=== PATIENT | male | born 1940 | race Caucasian/White ===

== ENCOUNTER → 2016-06-30 | Outpatient (CLI) | payer MEDICARE ==
[~2016-06-30] MED LIST: ALLP300T PO; AML5T; ASP81TEC PO; ATOR40TA; ATOR40TA PO; BNZ20T PO; DILT120C PO; FURO20TA4 PO; HCT25T PO; HCTZ12.5T; ISOS30TA74 PO; LISI10TA2 PO; METO25TA PO; METO50TA2 PO; MTP50T PO; MULT1CAP27 PO; POTA10CA43 PO; iron
--- NOTE | 2016-07-02 09:40 | ECHOCARDIOGRAPHY REPORT ---
DATE OF SERVICE: 06/30/2016 A 2-D ECHOCARDIOGRAM REPORT REFERRING PHYSICIAN: Dr. Capo Quintana. PRIMARY PHYSICIAN: Dr. Alba Mercado. MEASUREMENT: LVID end diastolic 3.8, IVS thickness 0.9, LVPW thickness 1.0, left atrial diameter 3.5. Ejection fraction 60%. FINDINGS: 1. Technical quality is good. 2. The left ventricle is normal in size with normal contractility, systolic function appeared to be normal, estimated ejection fraction 60%. 3. The left atrium is in the upper normal limit in size. No clot or thrombus is seen within the left atrium. 4. The right atrium and right ventricle are normal in size. No clot or thrombus is seen within the right side. 5. Mitral valve is normal in morphology with mild mitral regurgitation noted by color Doppler flow. No mitral valve prolapse. No mitral valve stenosis. Doppler across the mitral valve showed E/A reversal, which is an expected finding at patient of age 76. 6. Aortic valve is trileaflet, calcified valve. There is no significant aortic stenosis or regurgitation seen. 7. Tricuspid valve is normal in morphology with mild tricuspid regurgitation noted by color Doppler flow. Doppler across the tricuspid valve estimated pulmonary artery pressure of 19+ right atrial pressure. 8. Pulmonic valve is functioning normally. 9. No pericardial effusion. CONCLUSION: 1. Normal left ventricular size and systolic function, estimated ejection fraction 60%. 2. Aortic valve sclerosis, no aortic stenosis. 3. Mild mitral regurgitation, mild tricuspid regurgitation. 4. Estimated pulmonary artery pressure of 25 mmHg. Job ID: [id number] DocumentID: [id number] Dictated Date: 07/01/2016 15:57:35 Ad Operations Associate Date: 07/02/2016 08:02:39 Dictated By: GISELE MERAZ MD
== END ==
LOC: CARD 13:36
PROVIDERS: ATTEND Internal Medicine Cardiovascular Disease
DX: R07.89 Other chest pain (principal); I25.10 Atherosclerotic heart disease of native coronary artery without angina pectoris; I10 Essential (primary) hypertension; E78.2 Mixed hyperlipidemia; Z95.2 Presence of prosthetic heart valve

== ENCOUNTER → 2016-07-01 | Outpatient (CLI) | payer MEDICARE ==
[~2016-07-01] VITALS: Ht 172.7 cm; Wt 108.9 kg
[~2016-07-01] MED LIST changes: +CATHETER FLUSH 10 ML SYR IV PRN; +REGADENOSON 0.4 MG/5 ML SYR (LEXISCAN) IV ONE
[2016-07-01 13:15] VITALS: BP 158/84
[2016-07-01 13:18] VITALS: BP 126/78
[2016-07-01 13:20] VITALS: BP 158/95
--- NOTE | 2016-07-02 08:39 | STRESS TEST ---
DATE OF SERVICE: 07/01/2016 LEXISCAN MYOVIEW STRESS TEST REPORT REFERRING PHYSICIAN: Alba Mercado MD Baseline heart rate is 77, baseline blood pressure 158/84. Baseline EKG is sinus rhythm with no ischemic changes. SUMMARY: The patient was injected with 10.53 mCi of technetium-99 Myoview and the resting images were obtained. Then, the patient received 0.4 mg of Lexiscan followed by 31.9 mCi of technetium 99 Myoview. Throughout the test, there were no EKG changes. The resting and stress images were reviewed and compared in the short axis, horizontal long axis, and vertical long axis views. Review of the images showed transient ischemic dilatation with TID value 1.22. There is no significant ischemia was noted. SSS is 1, SDS 1, TID value 1.22. On the gated images, the left ventricle appeared to be normal size with normal contractility. Calculated ejection fraction 58%. CONCLUSIONS: 1. The patient tolerated Lexiscan well. 2. Transient ischemic dilatation with TID value 1.22. 3. SPECT images did not show any significant ischemia. 4. Normal left ventricular size with normal contractility. Calculated ejection fraction 58%. Job ID: [id number] DocumentID: [id number] Dictated Date: 07/01/2016 15:33:30 Coremaker Experimental Date: 07/02/2016 06:31:59 Dictated By: GISELE MERAZ MD
== END ==
LOC: CARD 12:09
PROVIDERS: ATTEND Internal Medicine Cardiovascular Disease
DX: R07.89 Other chest pain (principal); I25.10 Atherosclerotic heart disease of native coronary artery without angina pectoris; I10 Essential (primary) hypertension; E78.2 Mixed hyperlipidemia; Z95.2 Presence of prosthetic heart valve
CPT/HCPCS: 78452; 93017

== ENCOUNTER → 2017-11-30 | Outpatient (CLI) | payer MEDICARE ==
[~2017-11-30] MED LIST changes: -CATHETER FLUSH 10 ML SYR IV PRN; -REGADENOSON 0.4 MG/5 ML SYR (LEXISCAN) IV ONE
== END ==
LOC: CARD 10:36
PROVIDERS: ATTEND Physician Assistant
DX: R07.89 Other chest pain (principal); I25.10 Atherosclerotic heart disease of native coronary artery without angina pectoris; I10 Essential (primary) hypertension; I34.0 Nonrheumatic mitral (valve) insufficiency; Z95.2 Presence of prosthetic heart valve
CPT/HCPCS: 93306

== ENCOUNTER → 2018-12-05 | Outpatient (CLI) | payer MEDICARE | LOC: CARD 08:58 | PROVIDERS: ATTEND Internal Medicine Cardiovascular Disease | DX: I08.0 Rheumatic disorders of both mitral and aortic valves (principal); Q25.3 Supravalvular aortic stenosis; I25.10 Atherosclerotic heart disease of native coronary artery without angina pectoris; I65.29 Occlusion and stenosis of unspecified carotid artery; I10 Essential (primary) hypertension | CPT/HCPCS: 93306 ==

== ENCOUNTER → 2019-06-28 | Outpatient (CLI) | payer MEDICARE ==
[~2019-06-28] VITALS: Ht 172 cm; Wt 99.0 kg
[~2019-06-28] MED LIST changes: +CATHETER FLUSH 10 ML SYR IV PRN; +REGADENOSON 0.4 MG/5 ML SYR (LEXISCAN) IV ONE
--- NOTE | 2019-06-28 16:06 | STRESS TEST ---
DATE OF SERVICE: 06/28/2019 LEXISCAN MYOVIEW STRESS TEST REPORT REFERRING PHYSICIAN: Dr. Alba Mercado. Baseline heart rate is 84, baseline blood pressure is 146/92. Baseline EKG is sinus rhythm with no ischemic changes. In summary, the patient was injected with 9.38 mCi of technetium-99 Myoview and the resting images were obtained. Then, the patient received 0.4 mg of Lexiscan followed by 31.5 mCi of technetium-99 Myoview. Throughout the test, there were no EKG changes. The resting and stress images were reviewed and compared in the short axis, horizontal long axis, and vertical long axis views. Review of the images showed good radiotracer uptake with no significant ischemia or infarction. SSS is 3, SDS 3, TID value 1.08. On the gated images, the left ventricle appeared to be normal size with normal contractility. Calculated ejection fraction 64%. Job ID: [id number] DocumentID: [id number] Dictated Date: 06/28/2019 15:59:13 Civil Structural Designer Date: 06/28/2019 16:05:47 Dictated By: GISELE MERAZ MD
== END ==
LOC: CARD 06-21 07:29
PROVIDERS: ATTEND Internal Medicine Cardiovascular Disease
DX: I25.10 Atherosclerotic heart disease of native coronary artery without angina pectoris (principal); I10 Essential (primary) hypertension; E78.2 Mixed hyperlipidemia
CPT/HCPCS: 78452; 93017

== ENCOUNTER 2019-11-20 16:55 | Inpatient (IN) | payer MEDICARE ==
[~2019-11-20] VITALS: Ht 172 cm; Wt 112.3 kg
[~2019-11-20 16:55] MED LIST changes: -CATHETER FLUSH 10 ML SYR IV PRN; -REGADENOSON 0.4 MG/5 ML SYR (LEXISCAN) IV ONE
[2019-11-20] MEDS ORDERED: ACETAMINOPHEN 325 MG TABLET PO PRN (18:00)
[2019-11-20] MEDS ORDERED: ANTACID SUSP 30 ML UDC (MYLANTA) PO PRN (18:00)
[2019-11-20] MEDS ORDERED: MELATONIN 3 MG TABLET PO PRN (18:00)
[2019-11-20] MEDS ORDERED: BENZONATATE 100 MG (TESSALON) CAPSULE PO PRN (18:00)
[2019-11-20] MEDS ORDERED: MILK OF MAGNESIA 400 MG/5 ML 30 ML UDC PO PRN (18:00)
[2019-11-20] MEDS ORDERED: ONDANSETRON 4 MG/2 ML (SDV) Z0FRAN IV PRN (18:00)
[2019-11-20] MEDS ORDERED: guaiFENesin SYRUP 100 MG/5 ML 10 ML (ROBITUSSIN SF) PO PRN (18:00)
[2019-11-20] MEDS ORDERED: dexAMETHasone 6 MG TAB (DECADRON) ONE (18:32)
[2019-11-20] MEDS ORDERED: WATER (STERILE) FOR INJECTION 10 ML ONE (18:32)
[2019-11-20] MEDS ORDERED: cefTRIAXone 1,000 MG IV (ROCEPHIN) VIAL ONE (18:32)
[2019-11-20 19:00] VITALS: BP 158/92
[2019-11-20 19:26] LABS: BASOPHILS % (AUTO) 0 % (0-10); EOSINOPHILS % (AUTO) 0 % (0-10); HEMATOCRIT 42 % (40-54); HEMOGLOBIN 14.3 g/dL (13.3-17.7); LYMPHOCYTES # (AUTO) 0.8 10^3/uL (1.0-4.0); LYMPHOCYTES % (AUTO) 6 % (12-44); MEAN CORPUSCULAR HEMOGLOBIN 31 pg (25-34); MEAN CORPUSCULAR HGB CONC 34 g/dL (32-36); MEAN CORPUSCULAR VOLUME 90 fL (80-99); MEAN PLATELET VOLUME 9.4 fL (9.0-12.2); MONOCYTES % (AUTO) 9 % (0-12); NEUTROPHILS # (AUTO) 10.1 10^3/uL (1.8-7.8); NEUTROPHILS % (AUTO) 84 % (42-75); PLATELET COUNT 197 10^3/uL (130-400)
[2019-11-20 19:52] LABS: ALBUMIN 3.3 GM/DL (3.2-4.5); BILIRUBIN,TOTAL 1.2 MG/DL (0.1-1.0); CALCIUM 9.2 MG/DL (8.5-10.1); CREATININE SERUM 1.69 MG/DL (0.60-1.30); POTASSIUM 3.9 MMOL/L (3.6-5.0); TOTAL PROTEIN 6.6 GM/DL (6.4-8.2)
[2019-11-20 20:00] VITALS: BP 159/86
[2019-11-20] MEDS ORDERED: FLU QUAD HIGH DOSE 240 MCG/0.7 ML 2020-21 (FLUZONE) IM ONE (20:00)
[2019-11-20 20:25] VITALS: BP 166/92
[2019-11-20] MEDS: AZITHROMYCIN INJECTION 500 MG in NS (IVPB) 250 ML IV SCH (20:28)
[2019-11-20] MEDS: cefTRIAXone FOR IV USE 1,000 MG in WATER (STERILE) FOR INJECTION 10 ML IV SCH (20:28)
[2019-11-20] MEDS: ENOXAPARIN 40 MG/0.4 ML (LOVENOX) SYR SC SCH (20:29)
[2019-11-20 20:53] LABS: ABG BASE EXCESS 6.2 MMOL/L (-2.5-2.5); ABG OXYGEN SATURATION 92 % (94-100); ABG PCO2 40 MMHG (35-45); ABG PH 7.48 (7.37-7.43); ABG PO2 64 MMHG (79-93); ABG TCO2 30.9 MMOL/L (21.0-31.0)
[2019-11-20 21:00] VITALS: BP 156/80
[2019-11-20 21:02] LABS: ALLENS TEST YES-POS; INSPIRED O2 80%; PATIENT TEMP 37.4; VENTILATOR NO
[2019-11-20] MEDS ORDERED: inSUlin ASPART (NovoLOG) 1 UNIT/0.01 ML (CHARGE PER UNIT) ONE (21:41)
[2019-11-20] MEDS: inSUlin ASPART (NovoLOG) 1 UNIT/0.01 ML (CHARGE PER UNIT) SC SCH (21:46)
[2019-11-20 22:00] VITALS: BP 151/97
[2019-11-20 23:00] VITALS: BP 160/88
[2019-11-20 23:57] LABS: BILIRUBIN,URINE NEGATIVE (NEGATIVE); CLARITY,URINE CLEAR; COLOR,URINE YELLOW; GLUCOSE, URINE (UA) 1+ (NEGATIVE); KETONES,URINE NEGATIVE (NEGATIVE); LEUKOCYTE ESTERASE ,URINE NEGATIVE (NEGATIVE); NITRITE,URINE NEGATIVE (NEGATIVE); PROTEIN,URINE NEGATIVE (NEGATIVE)
[2019-11-21] VITALS (28 sets, daily range): BP systolic 124–177; BP diastolic 77–100
[2019-11-21 00:07] LABS: BACTERIA,URINE NEGATIVE /HPF; SQUAMOUS EPITHELIAL CELL,UR RARE /HPF
[2019-11-21 03:05] LABS: BASOPHILS % (AUTO) 0 % (0-10); EOSINOPHILS % (AUTO) 0 % (0-10); HEMATOCRIT 41 % (40-54); HEMOGLOBIN 14.1 g/dL (13.3-17.7); LYMPHOCYTES % (AUTO) 8 % (12-44); MEAN CORPUSCULAR HEMOGLOBIN 31 pg (25-34); MEAN CORPUSCULAR HGB CONC 34 g/dL (32-36); MEAN CORPUSCULAR VOLUME 89 fL (80-99); MEAN PLATELET VOLUME 9.4 fL (9.0-12.2); MONOCYTES # (AUTO) 1.2 10^3/uL (0.0-1.0); MONOCYTES % (AUTO) 10 % (0-12); NEUTROPHILS # (AUTO) 10.1 10^3/uL (1.8-7.8); NEUTROPHILS % (AUTO) 82 % (42-75); PLATELET COUNT 196 10^3/uL (130-400); WHITE BLOOD COUNT 12.4 10^3/uL (4.3-11.0)
[2019-11-21 03:17] LABS: ALBUMIN 3.1 GM/DL (3.2-4.5); POTASSIUM 3.6 MMOL/L (3.6-5.0)
[2019-11-21 03:18] LABS: CALCIUM 8.9 MG/DL (8.5-10.1)
[2019-11-21 03:19] LABS: TOTAL PROTEIN 6.3 GM/DL (6.4-8.2)
[2019-11-21 03:21] LABS: BILIRUBIN,TOTAL 0.8 MG/DL (0.1-1.0)
[2019-11-21 03:22] LABS: PHOSPHORUS 2.8 MG/DL (2.3-4.7)
[2019-11-21 03:23] LABS: CREATININE SERUM 1.56 MG/DL (0.60-1.30)
[2019-11-21 03:25] LABS: MAGNESIUM 1.8 MG/DL (1.6-2.4)
[2019-11-21] MEDS ORDERED: LACTATED RINGERS 1,000 ML IV ONE (05:39)
--- NOTE | 2019-11-21 05:40 | Pulmonary Consultation ---
History of Present Illness History of Present Illness Date Seen by Provider: Nov 21, 2019 Time Seen by Provider: 05:35 Date of Admission Allergies and Home Medications Allergies Coded Allergies: metformin (Verified Allergy, Unknown, 11/20/19) DIARRHEA Home Medications Allopurinol 300 Mg Tab, 300 MG PO DAILY, (Reported) Aspirin 81 Mg Tabec, 81 MG PO DAILY, (Reported) Atorvastatin Calcium 40 Mg Tablet, 1 EACH PO DAILY, (Reported) Diltiazem Hcl 120 Mg Cap.sr.24h, 120 MG PO DAILY, (Reported) Furosemide 20 Mg Tablet, 1 EACH PO DAILY, (Reported) Hydrochlorothiazide 25 Mg Tab, 25 MG PO DAILY, (Reported) Isosorbide Mononitrate 30 Mg Tab.sr.24h, 30 MG PO DAILY Prescribed by: GISELE MERAZ on 12/28/13 0824 Lisinopril 10 Mg Tablet, 20 MG PO DAILY, (Reported) Metoprolol Tartrate 50 Mg Tablet, 50 MG PO BID, (Reported) Multivitamins 1 Each Capsule, 1 EACH PO DAILY, (Reported) Potassium Chloride 10 Meq Capsule.sa, 10 MEQ PO DAILY, (Reported) [iron] , DAILY, (Reported) Past Xdhqsey-Oxfwno-Hyijtn Hx Patient Social History Alcohol Use: Denies Use Recreational Drug Use: No Recent Foreign Travel: No Contact w/Someone Who Travel: No Recent Infectious Disease Expo: No Recent Hopitalizations: Yes Past Medical History Surgeries: Yes Appendectomy, CABG Respiratory: No Cardiac: Yes Heart Attack, High Cholesterol, Hypertension Neurological: No Reproductive Disorders: No Gastrointestinal: Yes Abdominal Hernia Musculoskeletal: Yes Gout Endocrine: No Cancer: No Psychosocial: No Integumentary: No Blood Disorders: No Sepsis Event Evaluation Height, Weight, BMI Height: 5'8.00" Weight: 240lbs. 0.0oz. 108.926559mv; 31.19 BMI Method: Exam Exam Vital Signs Date Time Temp Pulse Resp B/P (MAP) Pulse Ox O2 Delivery O2 Flow Rate FiO2 11/21/19 04:00 96 30 158/91 (113) 91 Vapotherm 40.00 90.00 11/21/19 03:52 91 Vapotherm 40.00 90 11/21/19 03:41 37.3 Vapotherm 40.00 90.00 11/21/19 03:00 98 34 167/92 (117) 89 Vapotherm 35.00 80.00 10/6/20 02:45 93 Vapotherm 35.00 80 11/21/19 02:00 92 33 173/98 (123) 91 Vapotherm 35.00 80.00 11/21/19 01:00 97 152/81 (104) 91 Vapotherm 35.00 80.00 11/21/19 01:00 97 11/21/19 00:00 99 27 158/90 (112) 91 Vapotherm 35.00 80.00 11/21/19 00:00 92 Vapotherm 35.00 80 11/20/19 23:42 37.1 Vapotherm 35.00 80.00 11/20/19 23:00 101 160/88 (112) 90 Vapotherm 25.00 80.00 11/20/19 22:00 105 151/97 (115) 88 Vapotherm 25.00 80.00 11/20/19 21:00 106 156/80 (105) 89 Vapotherm 25.00 80.00 11/20/19 20:25 37.4 97 20 166/92 (116) 92 Vapotherm 25.00 80.00 11/20/19 20:00 91 159/86 (110) 92 Vapotherm 25.00 80.00 11/20/19 20:00 90 Vapotherm 25.00 80 11/20/19 19:11 Vapotherm 40.00 80 11/20/19 19:06 92 Vapotherm 25.00 80 11/20/19 19:00 94 11/20/19 19:00 94 17 158/92 (114) 89 Vapotherm 25.00 80.00 11/20/19 18:28 103 I & O 11/21/19 07:00 Intake Total 500 ml Output Total 675 ml Balance -175 ml Height & Weight Height: 5'8.00" Weight: 240lbs. 0.0oz. 108.295071md; 31.19 BMI Method: Capillary Refill: Less Than 3 Seconds Results Lab Laboratory Tests 11/20/19 19:22 11/21/19 02:53 Assessment/Plan Assessment/Plan COVID 19 PNA with acute respiratory failure -Remdesivir and Convalescent plasma -Pt understands these are EUA medications and consents to use. -Decadron -- increase to 20mg daily -BiPAP PRN -Awake proning as tolerated PNA -PCT is elevated -Continue rocephin and azithromycin -Guerrero cultures ARF -Monitor - DVT/GI PPX -Lovenox -Protonix TAVON ORTIZ DO Nov 21, 2019 05:40
[2019-11-21] MEDS ORDERED: MAGNESIUM 1 GM/100 ML IVPB 100 ML IV ONE ×2 (05:41→05:45)
[2019-11-21] MEDS: inSUlin ASPART (NovoLOG) 1 UNIT/0.01 ML (CHARGE PER UNIT) SC SCH ×4 (05:56→23:27)
[2019-11-21] MEDS: LACTATED RINGERS 1,000 ML IV SCH (05:56)
[2019-11-21] MEDS ORDERED: POTASSIUM PHOSPHATE INJ 15 MM in NS (IVPB) 250 ML IV ONE (06:30)
--- NOTE | 2019-11-21 07:55 | Diagnostic Imaging Report ---
INDICATION: Dyspnea. TECHNIQUE: Single view chest 3:11 AM. CORRELATION STUDY: 12/27/2013 FINDINGS: Poststernotomy changes. Cardiac enlargement slightly increased. Does appear to be presence of increasing vascular congestion. Opacities in particularly perihilar and basilar regions of both lung banerjee left greater than right have adversely developed. IMPRESSION: 1. Cardiac enlargement with what appears to be pulmonary vascular congestion. Bilateral particularly perihilar and basilar opacities left greater than right may be reflective of asymmetric edema versus infiltrate. Followup imaging recommended. Dictated by: Dictated on workstation # [id number]
[2019-11-21] MEDS ORDERED: dexAMETHasone 6 MG TAB (DECADRON) PO SCH (09:00)
[2019-11-21] MEDS ORDERED: REMDESIVIR INJ 200 MG in NS (IVPB) 210 ML IV NR (09:54)
[2019-11-21] MEDS: PANTOPRAZOLE 40 MG (PROTONIX) VIAL IV SCH (09:56)
[2019-11-21] MEDS: dexAMETHasone INJECTION 20 MG in NS (IVPB) 50 ML IV SCH (09:56)
[2019-11-21] MEDS ORDERED: LIDOCAINE UROJET 2% GEL 10 ML PKG ONE (10:53)
--- NOTE | 2019-11-21 11:20 | NUR ---
1110 pt placed on bipap at this time.
[2019-11-21] MEDS: cefTRIAXone FOR IV USE 1,000 MG in WATER (STERILE) FOR INJECTION 10 ML IV SCH (17:51)
[2019-11-21] MEDS: ENOXAPARIN 40 MG/0.4 ML (LOVENOX) SYR SC SCH (20:16)
[2019-11-21] MEDS: AZITHROMYCIN INJECTION 500 MG in NS (IVPB) 250 ML IV SCH (20:16)
[2019-11-22] VITALS (30 sets, daily range): BP systolic 122–161; BP diastolic 63–94
[2019-11-22 04:00] LABS: BASOPHILS % (AUTO) 0 % (0-10); EOSINOPHILS % (AUTO) 0 % (0-10); HEMATOCRIT 43 % (40-54); HEMOGLOBIN 14.5 g/dL (13.3-17.7); LYMPHOCYTES # (AUTO) 0.8 10^3/uL (1.0-4.0); LYMPHOCYTES % (AUTO) 7 % (12-44); MEAN CORPUSCULAR HEMOGLOBIN 31 pg (25-34); MEAN CORPUSCULAR HGB CONC 34 g/dL (32-36); MEAN CORPUSCULAR VOLUME 90 fL (80-99); MEAN PLATELET VOLUME 9.7 fL (9.0-12.2); MONOCYTES # (AUTO) 0.8 10^3/uL (0.0-1.0); MONOCYTES % (AUTO) 6 % (0-12); NEUTROPHILS % (AUTO) 86 % (42-75); PLATELET COUNT 228 10^3/uL (130-400); WHITE BLOOD COUNT 12.7 10^3/uL (4.3-11.0)
[2019-11-22 04:07] LABS: POTASSIUM 3.9 MMOL/L (3.6-5.0)
[2019-11-22 04:08] LABS: CALCIUM 8.7 MG/DL (8.5-10.1)
[2019-11-22 04:09] LABS: TOTAL PROTEIN 6.1 GM/DL (6.4-8.2)
[2019-11-22 04:11] LABS: BILIRUBIN,TOTAL 0.5 MG/DL (0.1-1.0)
[2019-11-22 04:12] LABS: PHOSPHORUS 2.7 MG/DL (2.3-4.7)
[2019-11-22 04:13] LABS: CREATININE SERUM 1.58 MG/DL (0.60-1.30)
[2019-11-22 04:16] LABS: MAGNESIUM 2.1 MG/DL (1.6-2.4)
--- NOTE | 2019-11-22 05:04 | Pulmonary Progress Note ---
Subjective Time Seen by a Provider: 04:59 Sepsis Event Evaluation Height, Weight, BMI Height: 5'8.00" Weight: 240lbs. 0.0oz. 108.867734bt; 31.19 BMI Method: Focused Exam Lactate Level 11/20/19 19:22: Lactic Acid Level 1.90 Exam Exam Vital Signs Date Time Temp Pulse Resp B/P (MAP) Pulse Ox O2 Delivery O2 Flow Rate FiO2 11/22/19 04:10 36.1 11/22/19 04:09 92 NIV Bilevel 80 11/22/19 04:00 64 34 156/86 (109) 99 NIV Bilevel 80.00 11/22/19 03:00 68 29 138/78 (98) 99 NIV Bilevel 80.00 11/22/19 02:00 70 28 138/77 (97) 99 NIV Bilevel 80.00 11/22/19 01:52 69 28 98 55.00 11/22/19 01:00 61 29 149/82 (104) NIV Bilevel 80.00 11/22/19 01:00 61 11/22/19 00:05 92 NIV Bilevel 80 11/22/19 00:00 71 134/75 (94) 94 NIV Bilevel 80.00 11/21/19 23:25 36.4 NIV Bilevel 80.00 11/21/19 23:00 85 129/77 (94) 93 NIV Bilevel 70.00 11/21/19 22:00 79 161/85 (110) 89 NIV Bilevel 70.00 11/21/19 21:47 80 28 90 55.00 11/21/19 21:00 67 133/79 (97) 97 NIV Bilevel 70.00 11/21/19 20:30 78 145/77 (99) 96 NIV Bilevel 70.00 11/21/19 20:25 NIV Bilevel 70.00 11/21/19 20:00 150/86 (107) 11/21/19 20:00 95 NIV Bilevel 70 11/21/19 20:00 86 150/86 (107) 86 Vapotherm 40.00 100.00 11/21/19 20:00 36.8 11/21/19 19:00 89 159/86 (110) 89 Vapotherm 40.00 100.00 11/21/19 19:00 89 11/21/19 18:00 82 174/93 (120) NIV Bilevel 75.00 11/21/19 17:00 76 29 152/86 (108) 93 NIV Bilevel 75.00 11/21/19 16:00 75 22 161/92 (115) 92 NIV Bilevel 75.00 11/21/19 16:00 96 NIV Bilevel 75 11/21/19 15:00 89 34 130/77 (94) 87 NIV Bilevel 75.00 11/21/19 14:33 79 37 95 55.00 11/21/19 14:00 84 177/96 (123) 91 NIV Bilevel 75.00 11/21/19 13:00 82 23 163/96 (118) 96 NIV Bilevel 75.00 11/21/19 12:40 81 11/21/19 12:00 36.8 11/21/19 12:00 96 NIV Bilevel 75 11/21/19 12:00 82 23 163/96 (118) 96 NIV Bilevel 75.00 11/21/19 11:11 78 30 96 75.00 11/21/19 11:00 NIV Bilevel 75.00 11/21/19 11:00 75 29 164/90 (114) 95 Vapotherm 40.00 90.00 11/21/19 10:00 89 36 165/97 (119) 90 Vapotherm 40.00 90.00 11/21/19 09:00 82 29 154/94 (114) 93 Vapotherm 40.00 90.00 11/21/19 08:00 84 16 170/96 (120) 93 Vapotherm 40.00 90.00 11/21/19 08:00 91 Vapotherm 40.00 90 11/21/19 07:12 90 Vapotherm 40.00 95 11/21/19 07:00 36.1 11/21/19 07:00 89 32 154/90 (111) 88 Vapotherm 40.00 90.00 11/21/19 06:46 80 11/21/19 06:00 79 173/100 (124) 92 Vapotherm 40.00 90.00 11/21/19 05:00 86 154/90 (111) 94 Vapotherm 40.00 90.00 I & O 11/22/19 07:00 Intake Total 600 ml Output Total 850 ml Balance -250 ml Height & Weight Height: 5'8.00" Weight: 240lbs. 0.0oz. 108.524968hy; 31.19 BMI Method: Capillary Refill: Less Than 3 Seconds Results Lab Laboratory Tests 11/20/19 19:22 11/21/19 02:53 11/22/19 02:57 Assessment/Plan Assessment/Plan COVID 19 PNA with acute respiratory failure -Currently on BiPAP at 80% -Will trial to Vapotherm. Will most likely need intubation. -Remdesivir and Convalescent plasma (pending however has been ordered) -Pt understands these are EUA medications and consents to use. -Pt wants to be a full code. -Decadron 20mg daily -LR is currently at 30cc/hr -Awake proning - not tolerating -Repeat Ferritin, PCT, and Ddimer -Repeat ABG PNA -PCT is elevated -Continue rocephin and azithromycin -Guerrero cultures ARF -Monitor - IVF currently LR at 30cc/hr DVT/GI PPX -Lovenox -Protonix TAVON ORTIZ DO Nov 22, 2019 05:04
[2019-11-22] MEDS: LACTATED RINGERS 1,000 ML IV SCH (05:40)
[2019-11-22] MEDS: inSUlin ASPART (NovoLOG) 1 UNIT/0.01 ML (CHARGE PER UNIT) SC SCH ×4 (05:41→23:06)
[2019-11-22] MEDS: REMDESIVIR INJ 100 MG in NS (IVPB) 230 ML IV SCH (08:20)
[2019-11-22] MEDS: PANTOPRAZOLE 40 MG (PROTONIX) VIAL IV SCH (08:20)
[2019-11-22] MEDS: dexAMETHasone INJECTION 20 MG in NS (IVPB) 50 ML IV SCH (08:20)
--- NOTE | 2019-11-22 10:20 | Progress Note - Hospitalist ---
Subjective HPI/CC On Admission Date Seen by Provider: Nov 22, 2019 Time Seen by Provider: 10:13 Subjective/Events-last exam Pt reports breathing better today. Still on BiPAP. Going to attempt to switch to Vapotherm today. Focused Exam Lactate Level 11/20/19 19:22: Lactic Acid Level 1.90 Objective Exam Vital Signs Vital Signs Date Time Temp Pulse Resp B/P (MAP) Pulse Ox O2 Delivery O2 Flow Rate FiO2 11/22/19 08:32 36.0 11/22/19 08:15 92 NIV Bilevel 80 11/22/19 06:47 86 32 80.00 11/22/19 06:00 137/75 (95) Capillary Refill : Less Than 3 Seconds General Appearance: Other (on BiPAP, ill appearing but jovial) Respiratory: Decreased Breath Sounds; No Wheezing; Other (on BiPAP) Cardiovascular: Regular Rate, Rhythm, No JVD, No Murmur Gastrointestinal: Normal Bowel Sounds, Non Tender, Soft Extremity: No Calf Tenderness, No Pedal Edema Neurologic/Psychiatric: Alert, Oriented x3, Normal Mood/Affect Results/Procedures Lab Laboratory Tests 11/22/19 02:57 Patient resulted labs reviewed. Assessment/Plan Assessment and Plan Assess & Plan/Chief Complaint COVID 19 PNA with acute hypoxic respiratory failure -Currently on BiPAP, trial Vapotherm today - High risk for intubation given high oxygen requirement, patient ok with intubation if needed -Remdesivir day 2 and Convalescent plasma pending arrival -Pt understands these are EUA medications and consents to use per Dr Villarreal -Decadron 20mg daily -Awake proning - as able to tolerate but has not done well with it yet - Continue Rocephin and Azithromycin due to elevated procal -Repeat Ferritin pending -Guerrero cultures pending for OSH Urine legionella and strep pna negative ARF -Creatinine stable with adequate UOP yesterday - IVF currently LR at 30cc/hr Hyperglycemia Does not appear to have a history of DM Likely steroid induced SSI DVT/GI PPX -Lovenox -Protonix Diagnosis/Problems Diagnosis/Problems (1) COVID-19 Status: Acute (2) Acute respiratory failure with hypoxia Status: Acute (3) HTN (hypertension) Status: Chronic Qualifiers: Hypertension type: essential hypertension Qualified Codes: I10 - Essential (primary) hypertension (4) Hyperglycemia Status: Acute (5) Pneumonia Status: Acute Qualifiers: Pneumonia type: due to unspecified organism Laterality: left Lung location: lower lobe of lung Qualified Codes: J18.9 - Pneumonia, unspecified organism Clinical Quality Measures DVT/VTE Risk/Contraindication: Risk Factor Score Per Nursin RFS Level Per Nursing on Admit: 3=High LUIS ALBERTO ANDINO MD Nov 22, 2019 10:20
[2019-11-22] MEDS ORDERED: NS IV 500 ML 500 ML ONE (14:06)
[2019-11-22] MEDS ORDERED: GLIM4TAB5 PO (14:11)
[2019-11-22] MEDS ORDERED: MULT-1136 PO (14:11)
[2019-11-22] MEDS ORDERED: ALLO300T2 PO (14:11)
[2019-11-22] MEDS ORDERED: MULT-142 PO (14:11)
[2019-11-22] MEDS ORDERED: METO100T12 PO (14:11)
[2019-11-22] MEDS ORDERED: OMEG-105 PO (14:11)
[2019-11-22] MEDS ORDERED: ISOS30TA3 PO (14:11)
[2019-11-22] MEDS ORDERED: LISI40TA PO (14:11)
[2019-11-22] MEDS ORDERED: ASPI-1238 PO (14:11)
[2019-11-22] MEDS ORDERED: HYDR25TA4 PO (14:11)
[2019-11-22] MEDS ORDERED: ATOR40TA70 PO (14:11)
[2019-11-22] MEDS ORDERED: LIRA0.6P SQ (14:11)
[2019-11-22] MEDS ORDERED: POTA10TA PO (14:11)
[2019-11-22] MEDS ORDERED: FURO20TA4 PO (14:11)
--- NOTE | 2019-11-22 14:13 | NUR ---
UNABLE TO SPEAK WITH THE PT AT THIS TIME HOWEVER I WAS ABLE TO GET IN TOUCH WITH THE PTS DAUGHTER ZENON. I SPOKE WITH ZENON AND WENT THRU THE EXT MED HISTORY TO COMPLETE THE MED REC ZENON HAD ALL THE PTS MED BOTTLE WITH HER AND SHE WENT THRU EACH MED AND WAS ABLE TO TELL ME THE NAME WELL WHEN/HOW THE PT TAKES THEM METOPROLOL TART 50MG HAS A FILL DATE OF 11-20-2019 #14/7DS ON THE EXT MED HISTORY, HOWEVER IT DOESNT LOOK THIS WAS AN ACTUAL FILL AND WHEN I SPOKE WITH ZENON SHE SAID THE ONLY BOTTLE SHE HAS IS THE 100MG OTC MEDS: ASPIRIN 81 [employer]
[2019-11-22] MEDS: NS IV 500 ML 500 ML IV SCH (14:50)
[2019-11-22] MEDS: cefTRIAXone FOR IV USE 1,000 MG in WATER (STERILE) FOR INJECTION 10 ML IV SCH (17:15)
--- NOTE | 2019-11-22 17:24 | NUR ---
DR ANDINO ON FLOOR EARLIER AND NOTIFIED OF PT'S ELEVATED BLOOD SUGARS. NEW ORDERS RECEIVED TO GIVE LEVEMIR 10 UNITS SQ AT HS. ORDERS REPEATED BACK AND ENTERED.
[2019-11-22] MEDS: ENOXAPARIN 40 MG/0.4 ML (LOVENOX) SYR SC SCH (20:46)
[2019-11-22] MEDS: AZITHROMYCIN INJECTION 500 MG in NS (IVPB) 250 ML IV SCH (20:46)
[2019-11-23] VITALS (29 sets, daily range): BP systolic 113–183; BP diastolic 62–103
[2019-11-23] MEDS: NS IV 500 ML 500 ML IV SCH ×2 (04:31→23:05)
[2019-11-23 04:42] LABS: BASOPHILS % (AUTO) 0 % (0-10); EOSINOPHILS % (AUTO) 0 % (0-10); HEMATOCRIT 43 % (40-54); HEMOGLOBIN 14.7 g/dL (13.3-17.7); LYMPHOCYTES # (AUTO) 0.7 10^3/uL (1.0-4.0); LYMPHOCYTES % (AUTO) 5 % (12-44); MEAN CORPUSCULAR HEMOGLOBIN 30 pg (25-34); MEAN CORPUSCULAR HGB CONC 34 g/dL (32-36); MEAN CORPUSCULAR VOLUME 90 fL (80-99); MEAN PLATELET VOLUME 9.6 fL (9.0-12.2); MONOCYTES # (AUTO) 0.9 10^3/uL (0.0-1.0); MONOCYTES % (AUTO) 6 % (0-12); NEUTROPHILS # (AUTO) 14.8 10^3/uL (1.8-7.8); NEUTROPHILS % (AUTO) 89 % (42-75); PLATELET COUNT 272 10^3/uL (130-400); WHITE BLOOD COUNT 16.6 10^3/uL (4.3-11.0)
[2019-11-23 04:59] LABS: ALBUMIN 2.9 GM/DL (3.2-4.5); POTASSIUM 3.8 MMOL/L (3.6-5.0)
[2019-11-23 05:00] LABS: CALCIUM 8.5 MG/DL (8.5-10.1)
[2019-11-23 05:01] LABS: TOTAL PROTEIN 5.8 GM/DL (6.4-8.2)
[2019-11-23 05:03] LABS: BILIRUBIN,TOTAL 0.5 MG/DL (0.1-1.0)
[2019-11-23 05:05] LABS: CREATININE SERUM 1.49 MG/DL (0.60-1.30); PHOSPHORUS 3.1 MG/DL (2.3-4.7)
[2019-11-23 05:08] LABS: MAGNESIUM 2.2 MG/DL (1.6-2.4)
[2019-11-23 05:41] LABS: BAND NEUTROPHILS 1 %; LYMPHOCYTES % (MANUAL) 5 %; MONOCYTES % (MANUAL) 4 %; NEUTROPHILS % (MANUAL) 90 %; RBC MORPH NORMAL
[2019-11-23] MEDS: LACTATED RINGERS 1,000 ML IV SCH (06:21)
[2019-11-23] MEDS: inSUlin ASPART (NovoLOG) 1 UNIT/0.01 ML (CHARGE PER UNIT) SC SCH ×4 (06:21→23:09)
[2019-11-23] MEDS: dexAMETHasone INJECTION 20 MG in NS (IVPB) 50 ML IV SCH (08:32)
[2019-11-23] MEDS: PANTOPRAZOLE 40 MG (PROTONIX) VIAL IV SCH (08:34)
[2019-11-23] MEDS: REMDESIVIR INJ 100 MG in NS (IVPB) 230 ML IV SCH (08:38)
--- NOTE | 2019-11-23 09:19 | Progress Note - Hospitalist ---
Subjective HPI/CC On Admission Date Seen by Provider: Nov 23, 2019 Time Seen by Provider: 09:11 Subjective/Events-last exam Pt reports feeling about the same. Lying on his side. Not able to prone well. Still on BiPAP. Discussed repeating plasma and patient states "do anything that will help me." Focused Exam Lactate Level 11/20/19 19:22: Lactic Acid Level 1.90 Objective Exam Vital Signs Vital Signs Date Time Temp Pulse Resp B/P (MAP) Pulse Ox O2 Delivery O2 Flow Rate FiO2 11/23/19 08:31 35.8 11/23/19 08:00 68 137/70 (92) 93 NIV Bilevel 80.00 11/23/19 07:21 28 11/23/19 04:25 80 Capillary Refill : Less Than 3 Seconds General Appearance: Chronically ill, Mild Distress Respiratory: No Accessory Muscle Use, Rhonci, Other (on BiPAP) Cardiovascular: Regular Rate, Rhythm, No Murmur Gastrointestinal: Normal Bowel Sounds, Non Tender, Soft Neurologic/Psychiatric: Alert, Oriented x3 Results/Procedures Lab Laboratory Tests 11/23/19 04:00 Patient resulted labs reviewed. Assessment/Plan Assessment and Plan Assess & Plan/Chief Complaint COVID 19 PNA with acute hypoxic respiratory failure - Currently on BiPAP, did not do well with Vapotherm yesterday - High risk for intubation given high oxygen requirement, patient ok with intubation if needed - Remdesivir day 3 and Convalescent plasma given yesterday - Pt understands these are EUA medications and consents to use per Dr Villarreal - Will repeat plasma today - Decadron 20mg daily - Awake proning - as able to tolerate but has not done well with it yet - Continue Rocephin and Azithromycin due to elevated procal - Repeat Ferritin pending - Guerrero cultures pending for OSH - Urine legionella and strep pna negative ARF - Creatinine stable with adequate UOP yesterday Hyperglycemia - Does not appear to have a history of DM - Likely steroid induced - SSI - Levemir added last night DVT/GI PPX - Lovenox - Protonix Diagnosis/Problems Diagnosis/Problems (1) COVID-19 Status: Acute (2) Acute respiratory failure with hypoxia Status: Acute (3) HTN (hypertension) Status: Chronic Qualifiers: Hypertension type: essential hypertension Qualified Codes: I10 - Essential (primary) hypertension (4) Hyperglycemia Status: Acute (5) Pneumonia Status: Acute Qualifiers: Pneumonia type: due to unspecified organism Laterality: left Lung location: lower lobe of lung Qualified Codes: J18.9 - Pneumonia, unspecified organism Clinical Quality Measures DVT/VTE Risk/Contraindication: Risk Factor Score Per Nursin RFS Level Per Nursing on Admit: 3=High LUIS ALBERTO ANDINO MD Nov 23, 2019 09:19
--- NOTE | 2019-11-23 14:29 | NUR ---
Note pt is currently NPO x2d, per chart review. If pt is to be NPO for more than 3days, pt may benefit from enteral nutrition to reduce risk of malnutrition. Will continue to follow and reassess as pt needs, intake, and status changes. Chloé Cleary, MS RD LD [phone]
[2019-11-23] MEDS: cefTRIAXone FOR IV USE 1,000 MG in WATER (STERILE) FOR INJECTION 10 ML IV SCH (16:59)
[2019-11-23] MEDS: AZITHROMYCIN INJECTION 500 MG in NS (IVPB) 250 ML IV SCH (21:45)
[2019-11-23] MEDS: ENOXAPARIN 40 MG/0.4 ML (LOVENOX) SYR SC SCH (21:45)
[2019-11-23] MEDS: RT-ALBUTEROL INHALER HFA (VENTOLIN HFA) 18 GM IH SCH (22:22)
[2019-11-24] VITALS (28 sets, daily range): BP systolic 118–182; BP diastolic 49–103
[2019-11-24] MEDS: RT-ALBUTEROL INHALER HFA (VENTOLIN HFA) 18 GM IH SCH ×4 (01:37→23:56)
[2019-11-24 03:20] LABS: BASOPHILS % (AUTO) 0 % (0-10); EOSINOPHILS % (AUTO) 0 % (0-10); HEMATOCRIT 45 % (40-54); HEMOGLOBIN 15.2 g/dL (13.3-17.7); LYMPHOCYTES # (AUTO) 0.9 10^3/uL (1.0-4.0); LYMPHOCYTES % (AUTO) 5 % (12-44); MEAN CORPUSCULAR HEMOGLOBIN 31 pg (25-34); MEAN CORPUSCULAR HGB CONC 34 g/dL (32-36); MEAN CORPUSCULAR VOLUME 90 fL (80-99); MEAN PLATELET VOLUME 9.6 fL (9.0-12.2); MONOCYTES # (AUTO) 1.5 10^3/uL (0.0-1.0); MONOCYTES % (AUTO) 8 % (0-12); NEUTROPHILS # (AUTO) 15.5 10^3/uL (1.8-7.8); NEUTROPHILS % (AUTO) 86 % (42-75); PLATELET COUNT 292 10^3/uL (130-400); WHITE BLOOD COUNT 18.1 10^3/uL (4.3-11.0)
[2019-11-24 03:28] LABS: ALBUMIN 2.9 GM/DL (3.2-4.5); POTASSIUM 3.5 MMOL/L (3.6-5.0)
[2019-11-24 03:30] LABS: CALCIUM 8.4 MG/DL (8.5-10.1)
[2019-11-24 03:31] LABS: TOTAL PROTEIN 5.9 GM/DL (6.4-8.2)
[2019-11-24 03:32] LABS: BILIRUBIN,TOTAL 0.6 MG/DL (0.1-1.0)
[2019-11-24 03:34] LABS: PHOSPHORUS 3.5 MG/DL (2.3-4.7)
[2019-11-24 03:35] LABS: CREATININE SERUM 1.5 MG/DL (0.60-1.30)
[2019-11-24 03:37] LABS: MAGNESIUM 2.4 MG/DL (1.6-2.4)
[2019-11-24] MEDS: inSUlin ASPART (NovoLOG) 1 UNIT/0.01 ML (CHARGE PER UNIT) SC SCH ×4 (05:01→23:38)
[2019-11-24] MEDS: dexAMETHasone INJECTION 20 MG in NS (IVPB) 50 ML IV SCH (08:25)
[2019-11-24] MEDS: PANTOPRAZOLE 40 MG (PROTONIX) VIAL IV SCH (08:25)
[2019-11-24] MEDS: REMDESIVIR INJ 100 MG in NS (IVPB) 230 ML IV SCH (08:57)
--- NOTE | 2019-11-24 10:33 | Progress Note - Hospitalist ---
Subjective HPI/CC On Admission Date Seen by Provider: Nov 24, 2019 Time Seen by Provider: 10:27 Subjective/Events-last exam Pt reports feeling very short of breath, otherwise ok. On BiPAP and thirsty. Discussed with him potential need for intubation still if not improving. Objective Exam Vital Signs Vital Signs Date Time Temp Pulse Resp B/P (MAP) Pulse Ox O2 Delivery O2 Flow Rate FiO2 11/24/19 10:00 68 175/95 (121) 95 NIV Bilevel 70.00 11/24/19 08:32 35.9 11/24/19 08:00 70 11/24/19 07:56 24 Capillary Refill : Less Than 3 Seconds General Appearance: Anxious, Mild Distress Respiratory: Decreased Breath Sounds, Rhonci, Other (on BiPAP) Cardiovascular: Regular Rate, Rhythm, No Murmur Gastrointestinal: Normal Bowel Sounds, Non Tender, Soft Neurologic/Psychiatric: Alert, Oriented x3 Results/Procedures Lab Laboratory Tests 11/24/19 02:55 Patient resulted labs reviewed. Assessment/Plan Assessment and Plan Assess & Plan/Chief Complaint COVID 19 PNA with acute hypoxic respiratory failure - Currently on BiPAP still and maintaining a sat of 92 while I was in the room - High risk for intubation still given not really improving with interventions, discussed with eICU and will continue to hold off on intubation as work of breath is tolerable - Remdesivir day 4 and Convalescent plasma given 11/21 - Pt understands these are EUA medications and consents to use per Dr Villarreal - Repeat plasma ordered today - Decadron 20mg daily - Awake proning - as able - Continue Rocephin and Azithromycin due to elevated procal - Repeat Ferritin [id number] - Guerrero cultures pending from OSH still - Urine legionella and strep pna negative ARF - Creatinine stable with adequate UOP yesterday Hyperglycemia - Does not appear to have a history of DM - Likely steroid induced - SSI - Levemir added last night DVT/GI PPX - Lovenox - Protonix Diagnosis/Problems Diagnosis/Problems (1) COVID-19 Status: Acute (2) Acute respiratory failure with hypoxia Status: Acute (3) HTN (hypertension) Status: Chronic Qualifiers: Hypertension type: essential hypertension Qualified Codes: I10 - Essential (primary) hypertension (4) Hyperglycemia Status: Acute (5) Pneumonia Status: Acute Qualifiers: Pneumonia type: due to unspecified organism Laterality: left Lung location: lower lobe of lung Qualified Codes: J18.9 - Pneumonia, unspecified organism Clinical Quality Measures DVT/VTE Risk/Contraindication: Risk Factor Score Per Nursin RFS Level Per Nursing on Admit: 3=High LUIS ALBERTO ANDINO MD Nov 24, 2019 10:33
--- NOTE | 2019-11-24 11:01 | NUR ---
VERBAL CONSENT FOR CONVALESCENT PLASMA, WITNESSED BY CONCHA CORMIER.
[2019-11-24] MEDS: NS IV 500 ML 500 ML IV SCH (14:11)
[2019-11-24] MEDS ORDERED: PROPOFOL DRIP (ICU) 100 ML IV ONE (15:33)
[2019-11-24] MEDS ORDERED: proPOfol 200 MG/20 ML (DIPRIVAN) VIAL IV ONE (15:33)
[2019-11-24] MEDS ORDERED: NS IV 1000 ML 1,000 ML ONE (16:15)
[2019-11-24] MEDS ORDERED: DexMEDEtomidine PRE MIX 100 ML IV ONE (16:31)
[2019-11-24] MEDS: DexMEDEtomidine PRE MIX 100 ML IV PRN ×2 (16:37→22:13)
[2019-11-24] MEDS ORDERED: PROPOFOL INJECTION 50 ML IV SCH (16:45)
--- NOTE | 2019-11-24 16:53 | Anesthesia-Procedure Note ---
Procedures/Interventions Procedure Start/Stop/Diagnosis Date of Procedure: Nov 24, 2019 Start Time: 16:10 Referring Physician: Carito Preprocedural Diagnosis: Covid Resp failure Brief History Called by electrician helper powerhouse to intubated pt in ICU 6 Covid + with respiratory failure. Intubation ordered per E ICU physician. Pt sats 80's on NC. Refusing prone and other treatments. Obtained verbal consent from pt after thorough explanation of procedure. Pre oxygentated with 100% O2 per ambu. RN gave propofol 100mg and Anectice 100mg. VL with Zapata Grade 1 view. 2 attempts to pass #8.0 ETT at 24cm. +etco2 per capnography and BS equal b/l Tube secured per RT. Right radial Ashley placed after prepping with alcohol. Good wave form present and blood return on catheter. Secured with op site and silk tape. Report to RN Stop Time: 16:30 Postprocedural Diagnosis: Covid Resp failure Intubation RSI: Yes 100% pre-Ox, [id number]: Yes Intubation Method: orotracheal Videoscope used: Yes Medications: Propofol, Succinylcholine Mask Ventilation: positive Positive End Tide CO2: Yes Breath Sounds after Intubation: bilateral-equal Intubation Complications: no complications Post Intubation Xray-done: Yes Arterial Line Arterial Line Catheter: 20G Type: Radial Location: Right Procedure: prepped, draped in sterile fashion, good wave-form was obtained, patient tolerated procedure well, no immediate complications, post procedure area cleaned, post procedure dressing applied KATIE BALLESTEROS CRNA Nov 24, 2019 16:53
--- NOTE | 2019-11-24 16:56 | Diagnostic Imaging Report ---
INDICATION: Respiratory distress. COMPARISON: 11/21/2019. EXAMINATION: Single view of the chest was obtained. FINDINGS: ET tube is in the mid thoracic trachea. The sternal wires are midline. There is bilateral vascular congestion and mixed interstitial and airspace disease having increased, radiographically suspect for edema but pneumonia in the appropriate scenario could not be excluded. There is no pleural fluid. There is an OG catheter in the stomach. There is no pneumothorax. IMPRESSION: Worsened venous distention and five lobe pulmonary opacities reflective of increased edema versus pneumonia. Dictated by: Dictated on workstation # [id number]
[2019-11-24] MEDS ORDERED: SUCCINYLCHOLINE INJ 100 MG/5 ML SYR/VIAL INJ ONE (17:10)
--- NOTE | 2019-11-24 17:12 | NUR ---
TIMELINE NOTE BELOW: 11/24/2019 AT 1540: THIS RN CALLED DR. ANDINO TO INFORM HER THAT PT O2 SATURATION 86-90% AND THAT PT IS REFUSING BIPAP AND REFUSING TO PRONE. DR. ANDINO INSTRUCTED THIS RN TO CONTACT TELE-ICU PRIOR TO INTUBATING TO SEE IF THEY COULD OFFER ANY OTHER ADVICE BEFORE PRECEDING WITH INTUBATION. THIS RN CALLED TELE-ICU, LEFT A MESSAGE WITH THE NURSE THE PHYSICIAN WAS ON ANOTHER CALL AT THE TIME. 11/24/2019 AT 1546: TELE-ICU CALLED THIS RN BACK. ORDERS TO PRECEDE WITH INTUBATION GIVEN TO THIS RN. THIS RN NOTIFIED HOUSEHOLD MANAGER TO NOTIFY ANESTHESIA FOR INTUBATION. 11/24/2019 AT 1615: 100MCG PROPOFOL PUSHED BY THIS RN, FOLLOWED BY 10ML SALINE FLUSH, FOLLOWED BY 100MG SUCCINYLCHOLINE, FOLLOWED BY 10ML SALINE FLUSH PER GOPAL WILSON'S INSTRUCTION. 11/24/2019 AT 1617: PT INTUBATED WITH 8FR ETT, END TITLE NOTED WITH COLOR CHANGE, BILATERAL LUNG SOUNDS AUSCULTATED BY THIS RN. VENT SETTINGS 24CM AT THE TEETH, AC MODE, TV 500 RR 22, PEEP 12, FIO2 100% PER TELE-ICU ORDERS. 11/24/2019 AT 1628: RIGHT RADIAL ARTLINE PLACED BY GOPAL WILSON. 11/24/2019 AT 1635: OG PLACED BY THIS RN, PLACEMENT CONFIRMED BY AIR AND AUSCULTATED BY CONCHA CORMIER. 11/24/2019 AT 1637: CORDOVA CATHETER PLACED BY THIS RN. STAT CXR TAKEN.
[2019-11-24] MEDS: PROPOFOL DRIP (ICU) 100 ML IV SCH ×3 (17:31→22:09)
--- NOTE | 2019-11-24 17:37 | NUR ---
TITRATION TIMELINE NOTE BELOW: 11/24/2019 AT 1620: PROPOFOL START AT 20MCG/KG/MIN. 11/24/2019 AT 1630: PROPOFOL INCREASED TO 30MCG/KG/MIN. 11/24/2019 AT 1637: PRECEDEX START AT 0.2MCG/KG/HR 11/24/2019 AT 1640: PROPOFOL INCRESED TO 40MCG/KG/MIN. 11/24/2019 AT 1650: PROPOFOL INCREASED TO 50MCG/KG/MIN. 11/24/2019 AT 1657: PRECEDEX INCREASED TO 0.4MCG/KG/HR. 11/24/2019 AT 1720: PRECEDEX INCREASED TO 0.6MCG/KG/HR. 11/24/2019 AT 1735: PROPOFOL INCREASED TO 60MCG/KG/MIN. PRECEDEX INCREASED TO 0.7MCG/KG/HR.
[2019-11-24] MEDS: cefTRIAXone FOR IV USE 1,000 MG in WATER (STERILE) FOR INJECTION 10 ML IV SCH (18:08)
[2019-11-24] MEDS: ENOXAPARIN 40 MG/0.4 ML (LOVENOX) SYR SC SCH (20:05)
[2019-11-24] MEDS: AZITHROMYCIN INJECTION 500 MG in NS (IVPB) 250 ML IV SCH (20:05)
[2019-11-24] MEDS: RT-ALBUTEROL INHALER HFA (VENTOLIN HFA) 18 GM IH PRN (23:56)
[2019-11-25] VITALS (30 sets, daily range): BP systolic 107–164; BP diastolic 43–72
[2019-11-25 00:16] LABS: ABG BASE EXCESS 3.5 MMOL/L (-2.5-2.5); ABG OXYGEN SATURATION 99 % (94-100); ABG PCO2 40 MMHG (35-45); ABG PH 7.45 (7.37-7.43); ABG PO2 164 MMHG (79-93); ABG TCO2 28.9 MMOL/L (21.0-31.0)
[2019-11-25 00:18] LABS: ALLENS TEST POSITIVE; INSPIRED O2 90; PATIENT TEMP 35.8; VENTILATOR YES
[2019-11-25] MEDS: PROPOFOL DRIP (ICU) 100 ML IV SCH ×7 (00:59→21:37)
[2019-11-25] MEDS: RT-ALBUTEROL INHALER HFA (VENTOLIN HFA) 18 GM IH SCH ×3 (02:01→18:47)
[2019-11-25 02:28] LABS: ABG BASE EXCESS 6.7 MMOL/L (-2.5-2.5); ABG OXYGEN SATURATION 97 % (94-100); ABG PCO2 46 MMHG (35-45); ABG PH 7.44 (7.37-7.43); ABG PO2 95 MMHG (79-93); ABG TCO2 32.2 MMOL/L (21.0-31.0); INSPIRED O2 70; PATIENT TEMP 35.7; VENTILATOR YES
[2019-11-25 02:37] LABS: BASOPHILS % (AUTO) 0 % (0-10); EOSINOPHILS % (AUTO) 0 % (0-10); HEMATOCRIT 41 % (40-54); HEMOGLOBIN 14.1 g/dL (13.3-17.7); LYMPHOCYTES # (AUTO) 0.7 10^3/uL (1.0-4.0); LYMPHOCYTES % (AUTO) 5 % (12-44); MEAN CORPUSCULAR HEMOGLOBIN 31 pg (25-34); MEAN CORPUSCULAR HGB CONC 34 g/dL (32-36); MEAN CORPUSCULAR VOLUME 89 fL (80-99); MEAN PLATELET VOLUME 9.5 fL (9.0-12.2); MONOCYTES # (AUTO) 0.9 10^3/uL (0.0-1.0); MONOCYTES % (AUTO) 6 % (0-12); NEUTROPHILS % (AUTO) 88 % (42-75); PLATELET COUNT 242 10^3/uL (130-400); WHITE BLOOD COUNT 14.8 10^3/uL (4.3-11.0)
[2019-11-25 02:48] LABS: ALBUMIN 2.7 GM/DL (3.2-4.5); POTASSIUM 3.8 MMOL/L (3.6-5.0)
[2019-11-25 02:49] LABS: CALCIUM 7.9 MG/DL (8.5-10.1)
[2019-11-25 02:51] LABS: TOTAL PROTEIN 5.4 GM/DL (6.4-8.2)
[2019-11-25 02:52] LABS: BILIRUBIN,TOTAL 0.4 MG/DL (0.1-1.0)
[2019-11-25 02:54] LABS: CREATININE SERUM 1.43 MG/DL (0.60-1.30); PHOSPHORUS 4.1 MG/DL (2.3-4.7)
[2019-11-25 02:57] LABS: MAGNESIUM 2.5 MG/DL (1.6-2.4)
[2019-11-25] MEDS: DexMEDEtomidine PRE MIX 100 ML IV PRN ×3 (03:21→16:44)
[2019-11-25] MEDS: MAGNESIUM 1 GM/100 ML IVPB 100 ML IV SCH (04:45)
[2019-11-25] MEDS: POTASSIUM CL 10MEQ/50ML IVPB 50 ML IV SCH (04:45)
[2019-11-25] MEDS: KCL 20 MEQ TAB (K-DUR) PO SCH (04:46)
[2019-11-25] MEDS: inSUlin ASPART (NovoLOG) 1 UNIT/0.01 ML (CHARGE PER UNIT) SC SCH ×4 (05:54→23:20)
--- NOTE | 2019-11-25 07:18 | Physical Therapy Progress Note ---
Therapy Progress Note Orders received for PT evaluation. Pt currently on a mechanical ventilator, will follow and initiate evaluation as indicated and patient able to participate with skilled intervention. ETHEL CASIANO PT Nov 25, 2019 07:18
[2019-11-25] MEDS ORDERED: LACTATED RINGERS 1,000 ML IV ONE (08:09)
[2019-11-25] MEDS: PANTOPRAZOLE 40 MG (PROTONIX) VIAL IV SCH (08:33)
[2019-11-25] MEDS: dexAMETHasone INJECTION 20 MG in NS (IVPB) 50 ML IV SCH (08:33)
[2019-11-25] MEDS: LACTATED RINGERS 1,000 ML IV SCH (08:33)
--- NOTE | 2019-11-25 08:34 | Occ Therapy Progress Note ---
Therapy Progress Note OT orders received. Pt currently on ventilator. Will follow and initiate OT when pt is more able to participate. RENEE ANTONIO OT Nov 25, 2019 08:34
[2019-11-25] MEDS ORDERED: PANTOPRAZOLE 40 MG (PROTONIX) VIAL IV SCH (09:00)
[2019-11-25] MEDS: NS IV 500 ML 500 ML IV SCH (09:10)
[2019-11-25] MEDS: REMDESIVIR INJ 100 MG in NS (IVPB) 230 ML IV SCH (09:40)
--- NOTE | 2019-11-25 10:19 | Progress Note - Hospitalist ---
Subjective HPI/CC On Admission Date Seen by Provider: Nov 25, 2019 Time Seen by Provider: 10:14 Subjective/Events-last exam Pt is intubated and sedated. No ROS possble. RN states no new concerns overnight. Objective Exam Vital Signs Vital Signs Date Time Temp Pulse Resp B/P (MAP) Pulse Ox O2 Delivery O2 Flow Rate FiO2 11/25/19 09:00 59 141/63 (89) 97 Mechanical Ventilator 60.00 11/25/19 08:31 35.8 11/25/19 08:16 50 11/25/19 08:05 22 Capillary Refill : Less Than 3 Seconds General Appearance: Other (Intubated and sedated) Respiratory: Rhonci, Other (on ventilator) Cardiovascular: Regular Rate, Rhythm, No Murmur Neurologic/Psychiatric: Other (sedated, appears comfortable) Results/Procedures Lab Laboratory Tests 11/25/19 02:20 Patient resulted labs reviewed. Assessment/Plan Assessment and Plan Assess & Plan/Chief Complaint COVID 19 PNA with acute hypoxic respiratory failure - Intubated 11/23, TeleICU managing vent - Remdesivir day 4 and Convalescent plasma given 11/21 and 11/23 - Pt understands these are EUA medications and consents to use per Dr Villarreal - Decadron 20mg daily - Continue Rocephin and Azithromycin due to elevated procal - Ferritin 4949 - Guerrero cultures pending from OSH still - Urine legionella and strep pna negative ARF - Creatinine stable with adequate UOP yesterday Hyperglycemia - Does not appear to have a history of DM - Likely steroid induced - SSI - Levemir DVT/GI PPX - Lovenox - Protonix Diagnosis/Problems Diagnosis/Problems (1) COVID-19 Status: Acute (2) Acute respiratory failure with hypoxia Status: Acute (3) HTN (hypertension) Status: Chronic Qualifiers: Hypertension type: essential hypertension Qualified Codes: I10 - Essential (primary) hypertension (4) Hyperglycemia Status: Acute (5) Pneumonia Status: Acute Qualifiers: Pneumonia type: due to unspecified organism Laterality: left Lung location: lower lobe of lung Qualified Codes: J18.9 - Pneumonia, unspecified organism Clinical Quality Measures DVT/VTE Risk/Contraindication: Risk Factor Score Per Nursin RFS Level Per Nursing on Admit: 3=High LUIS ALBERTO ANDINO MD Nov 25, 2019 10:19
[2019-11-25] MEDS: RT-ALBUTEROL INHALER HFA (VENTOLIN HFA) 18 GM IH PRN (14:05)
[2019-11-25] MEDS: ENOXAPARIN 40 MG/0.4 ML (LOVENOX) SYR SC SCH (19:55)
[2019-11-26] VITALS (30 sets, daily range): BP systolic 120–154; BP diastolic 54–98
[2019-11-26] MEDS: RT-ALBUTEROL INHALER HFA (VENTOLIN HFA) 18 GM IH SCH ×4 (01:26→18:47)
[2019-11-26] MEDS: LACTATED RINGERS 1,000 ML IV SCH ×2 (01:49→19:40)
[2019-11-26] MEDS: NS IV 500 ML 500 ML IV SCH ×2 (01:49→18:00)
[2019-11-26] MEDS: PROPOFOL DRIP (ICU) 100 ML IV SCH ×5 (02:46→19:41)
[2019-11-26 03:05] LABS: BASOPHILS % (AUTO) 0 % (0-10); EOSINOPHILS % (AUTO) 0 % (0-10); HEMATOCRIT 41 % (40-54); HEMOGLOBIN 13.9 g/dL (13.3-17.7); LYMPHOCYTES # (AUTO) 0.5 10^3/uL (1.0-4.0); LYMPHOCYTES % (AUTO) 4 % (12-44); MEAN CORPUSCULAR HEMOGLOBIN 30 pg (25-34); MEAN CORPUSCULAR HGB CONC 34 g/dL (32-36); MEAN CORPUSCULAR VOLUME 89 fL (80-99); MEAN PLATELET VOLUME 9.4 fL (9.0-12.2); MONOCYTES # (AUTO) 0.8 10^3/uL (0.0-1.0); MONOCYTES % (AUTO) 6 % (0-12); NEUTROPHILS # (AUTO) 12.9 10^3/uL (1.8-7.8); NEUTROPHILS % (AUTO) 89 % (42-75); PLATELET COUNT 247 10^3/uL (130-400); WHITE BLOOD COUNT 14.5 10^3/uL (4.3-11.0)
[2019-11-26 03:09] LABS: ABG BASE EXCESS 3.4 MMOL/L (-2.5-2.5); ABG OXYGEN SATURATION 96 % (94-100); ABG PCO2 39 MMHG (35-45); ABG PH 7.45 (7.37-7.43); ABG PO2 78 MMHG (79-93); ABG TCO2 28.7 MMOL/L (21.0-31.0)
[2019-11-26 03:10] LABS: INSPIRED O2 70; PATIENT TEMP 35.7; VENTILATOR YES
[2019-11-26 03:18] LABS: ALBUMIN 2.4 GM/DL (3.2-4.5)
[2019-11-26 03:20] LABS: CALCIUM 7.6 MG/DL (8.5-10.1)
[2019-11-26 03:21] LABS: TOTAL PROTEIN 4.9 GM/DL (6.4-8.2)
[2019-11-26 03:23] LABS: BILIRUBIN,TOTAL 0.4 MG/DL (0.1-1.0)
[2019-11-26 03:24] LABS: PHOSPHORUS 3.9 MG/DL (2.3-4.7)
[2019-11-26 03:25] LABS: CREATININE SERUM 1.2 MG/DL (0.60-1.30)
[2019-11-26 03:28] LABS: MAGNESIUM 2.5 MG/DL (1.6-2.4)
[2019-11-26] MEDS: inSUlin ASPART (NovoLOG) 1 UNIT/0.01 ML (CHARGE PER UNIT) SC SCH ×3 (05:38→17:59)
[2019-11-26] MEDS: DexMEDEtomidine PRE MIX 100 ML IV PRN (05:41)
[2019-11-26] MEDS: KCL 20 MEQ TAB (K-DUR) PO SCH (06:34)
[2019-11-26] MEDS: MAGNESIUM 1 GM/100 ML IVPB 100 ML IV SCH (06:34)
[2019-11-26] MEDS: POTASSIUM CL 10MEQ/50ML IVPB 50 ML IV SCH (06:34)
[2019-11-26] MEDS: PANTOPRAZOLE 40 MG (PROTONIX) VIAL IV SCH (07:51)
[2019-11-26] MEDS: dexAMETHasone INJECTION 20 MG in NS (IVPB) 50 ML IV SCH (07:51)
--- NOTE | 2019-11-26 08:25 | Progress Note - Hospitalist ---
Subjective HPI/CC On Admission Date Seen by Provider: Nov 26, 2019 Time Seen by Provider: 08:21 Subjective/Events-last exam Pt remains sedated on vent. No ROS possible. Objective Exam Vital Signs Vital Signs Date Time Temp Pulse Resp B/P (MAP) Pulse Ox O2 Delivery O2 Flow Rate FiO2 11/26/19 08:05 53 22 95 70 11/26/19 08:00 124/59 (80) Mechanical Ventilator 70.00 11/26/19 07:50 35.6 Capillary Refill : Less Than 3 Seconds General Appearance: Other (sedated, on vent) HEENT: Other (ETT, OGT) Respiratory: Rhonci; No Wheezing; Other (on vent) Cardiovascular: No JVD, No Murmur, Bradycardia (50s) Gastrointestinal: Normal Bowel Sounds, Soft Genital/Rectal: Other (pierre) Extremity: Normal Capillary Refill, Pedal Edema Neurologic/Psychiatric: Other (sedated, appears comfortable) Results/Procedures Lab Laboratory Tests 11/26/19 02:45 Patient resulted labs reviewed. Assessment/Plan Assessment and Plan Assess & Plan/Chief Complaint COVID 19 PNA with acute hypoxic respiratory failure - Intubated 11/23, TeleICU managing vent - Remdesivir day 5 and Convalescent plasma given 11/21 and 11/23 - Decadron 20mg daily - Coompleted 5 day course of Rocephin and Azithromycin - Remains afebrile with stable white count (on steroid) so will monitor off abx today - Ferritin 4949 - Guerrero cultures pending from OSH still - Urine legionella and strep pna negative ARF - Creatinine 1.2, improving - UOP just barely under goal yesterday, will monitor - Goal for net negative I/O Hyperglycemia - Does not appear to have a history of DM - Likely steroid induced - SSI - Levemir DVT/GI PPX - Lovenox - Protonix Diagnosis/Problems Diagnosis/Problems (1) COVID-19 Status: Acute (2) Acute respiratory failure with hypoxia Status: Acute (3) HTN (hypertension) Status: Chronic Qualifiers: Hypertension type: essential hypertension Qualified Codes: I10 - Essential (primary) hypertension (4) Hyperglycemia Status: Acute (5) Pneumonia Status: Acute Qualifiers: Pneumonia type: due to unspecified organism Laterality: left Lung location: lower lobe of lung Qualified Codes: J18.9 - Pneumonia, unspecified organism Clinical Quality Measures DVT/VTE Risk/Contraindication: Risk Factor Score Per Nursin RFS Level Per Nursing on Admit: 3=High LUIS ALBERTO ANDINO MD Nov 26, 2019 08:25
[2019-11-26] MEDS: ENOXAPARIN 40 MG/0.4 ML (LOVENOX) SYR SC SCH (19:39)
[2019-11-27] VITALS (31 sets, daily range): BP systolic 112–174; BP diastolic 46–80
[2019-11-27] MEDS: DexMEDEtomidine PRE MIX 100 ML IV PRN ×2 (00:09→17:46)
[2019-11-27] MEDS: PROPOFOL DRIP (ICU) 100 ML IV SCH ×6 (00:09→23:49)
[2019-11-27] MEDS: inSUlin ASPART (NovoLOG) 1 UNIT/0.01 ML (CHARGE PER UNIT) SC SCH ×5 (00:16→23:54)
[2019-11-27] MEDS: RT-ALBUTEROL INHALER HFA (VENTOLIN HFA) 18 GM IH PRN (01:31)
[2019-11-27 03:24] LABS: ABG BASE EXCESS 2.9 MMOL/L (-2.5-2.5); ABG OXYGEN SATURATION 96 % (94-100); ABG PCO2 41 MMHG (35-45); ABG PH 7.43 (7.37-7.43); ABG PO2 74 MMHG (79-93); ABG TCO2 28.4 MMOL/L (21.0-31.0)
[2019-11-27 03:27] LABS: BASOPHILS % (AUTO) 0 % (0-10); EOSINOPHILS % (AUTO) 0 % (0-10); HEMATOCRIT 41 % (40-54); INSPIRED O2 40; LYMPHOCYTES # (AUTO) 0.6 10^3/uL (1.0-4.0); LYMPHOCYTES % (AUTO) 4 % (12-44); MEAN CORPUSCULAR HEMOGLOBIN 31 pg (25-34); MEAN CORPUSCULAR HGB CONC 34 g/dL (32-36); MEAN CORPUSCULAR VOLUME 90 fL (80-99); MEAN PLATELET VOLUME 9.8 fL (9.0-12.2); MONOCYTES # (AUTO) 0.8 10^3/uL (0.0-1.0); MONOCYTES % (AUTO) 5 % (0-12); NEUTROPHILS # (AUTO) 14.3 10^3/uL (1.8-7.8); NEUTROPHILS % (AUTO) 90 % (42-75); PATIENT TEMP 35.9; PLATELET COUNT 248 10^3/uL (130-400); VENTILATOR YES
[2019-11-27 03:38] LABS: ALBUMIN 2.4 GM/DL (3.2-4.5)
[2019-11-27 03:39] LABS: POTASSIUM 4.1 MMOL/L (3.6-5.0)
[2019-11-27 03:40] LABS: CALCIUM 7.5 MG/DL (8.5-10.1)
[2019-11-27 03:43] LABS: BILIRUBIN,TOTAL 0.5 MG/DL (0.1-1.0)
[2019-11-27 03:44] LABS: PHOSPHORUS 4.7 MG/DL (2.3-4.7)
[2019-11-27 03:45] LABS: CREATININE SERUM 1.3 MG/DL (0.60-1.30)
[2019-11-27 03:47] LABS: MAGNESIUM 2.6 MG/DL (1.6-2.4)
--- NOTE | 2019-11-27 04:32 | Pulmonary Progress Note ---
Subjective Time Seen by a Provider: 04:27 Subjective/Events-last exam Sedated on vent. Sepsis Event Evaluation Height, Weight, BMI Height: 5'8.00" Weight: 240lbs. 0.0oz. 108.089843yy; 31.19 BMI Method: Exam Exam Vital Signs Date Time Temp Pulse Resp B/P (MAP) Pulse Ox O2 Delivery O2 Flow Rate FiO2 11/27/19 01:32 73 25 95 40 11/27/19 00:12 36.2 11/27/19 00:09 68 159/69 11/27/19 00:09 68 159/69 11/27/19 00:00 71 22 151/66 (94) 96 Mechanical Ventilator 40.00 11/27/19 00:00 94 Mechanical Ventilator 40 11/26/19 23:00 65 17 144/63 (90) 96 Mechanical Ventilator 40.00 11/26/19 22:00 66 21 154/70 (98) 95 Mechanical Ventilator 40.00 11/26/19 21:40 66 24 95 40 11/26/19 21:00 64 23 150/69 (96) 95 Mechanical Ventilator 40.00 11/26/19 20:00 62 16 151/68 (95) 93 Mechanical Ventilator 40.00 11/26/19 20:00 94 Mechanical Ventilator 40 11/26/19 19:41 36.2 Mechanical Ventilator 40.00 11/26/19 19:41 59 149/68 11/26/19 19:00 61 11/26/19 19:00 61 22 150/69 (96) 94 Mechanical Ventilator 40.00 11/26/19 18:47 62 24 94 40 11/26/19 18:00 60 12 150/70 (96) 93 Mechanical Ventilator 40.00 11/26/19 17:00 59 25 154/72 (99) 94 Mechanical Ventilator 40.00 11/26/19 16:00 57 20 148/70 (96) 94 Mechanical Ventilator 40.00 11/26/19 15:52 57 146/70 11/26/19 15:51 94 Mechanical Ventilator 40 11/26/19 15:50 35.4 11/26/19 15:00 58 33 137/67 (90) 95 Mechanical Ventilator 40.00 11/26/19 14:58 58 28 95 40 11/26/19 14:00 54 21 124/60 (81) 95 Mechanical Ventilator 50.00 11/26/19 13:00 54 20 131/63 (85) 94 Mechanical Ventilator 50.00 11/26/19 12:31 47 11/26/19 12:00 52 21 127/62 (83) 93 Mechanical Ventilator 50.00 11/26/19 11:52 52 116/57 11/26/19 11:46 94 Mechanical Ventilator 50 11/26/19 11:45 35.6 11/26/19 11:44 50 133/63 11/26/19 11:44 50 133/64 11/26/19 11:17 52 23 96 60 11/26/19 11:00 54 29 129/64 (85) 95 Mechanical Ventilator 50.00 11/26/19 10:00 51 25 121/60 (80) 94 Mechanical Ventilator 70.00 11/26/19 09:00 55 20 132/61 (84) 95 Mechanical Ventilator 70.00 11/26/19 08:05 53 22 95 70 11/26/19 08:00 53 22 124/59 (80) 95 Mechanical Ventilator 70.00 11/26/19 07:50 35.6 11/26/19 07:47 94 Mechanical Ventilator 70 11/26/19 07:31 37.6 11/26/19 07:00 56 11/26/19 07:00 52 22 129/56 (80) 95 Mechanical Ventilator 70.00 11/26/19 06:53 51 138/60 11/26/19 06:00 49 21 133/58 (83) 96 Mechanical Ventilator 70.00 11/26/19 05:41 52 22 135/59 96 11/26/19 05:00 49 21 136/59 (84) 96 Mechanical Ventilator 70.00 I & O 11/27/19 07:00 Intake Total 152 ml Output Total 690 ml Balance -538 ml Height & Weight Height: 5'8.00" Weight: 240lbs. 0.0oz. 108.170267ic; 31.19 BMI Method: General Appearance: Other (sedated, on vent) HEENT: Other (ETT, OGT) Respiratory: Rhonci; No Wheezing; Other (on vent) Cardiovascular: No JVD, No Murmur, Bradycardia (50s) Capillary Refill: Less Than 3 Seconds Extremity: Normal Capillary Refill, Pedal Edema Neurologic/Psychiatric: Other (sedated, appears comfortable) Results Lab Laboratory Tests 11/26/19 02:45 11/27/19 03:00 Assessment/Plan Assessment/Plan COVID 19 PNA with acute respiratory failure with ARDS Pa02/Fi02 185 -Intubated 11/23 - EICU assisted with management through the weekend. -S/P Remdesivir and Convalescent plasma given 11/21 and 11/23 -Pt understands these are EUA medications and consents to use. -Pt wants to be a full code. -Decadron 20mg daily - Will Decrease to 15mg daily -Repeat Ferritin and BNP -LR is currently at 30cc/hr -Awake proning - not tolerating PNA -s/p rocephin and azithromycin -Repeat PCT -Guerrero cultures ARF -Monitor - IVF currently LR at 30cc/hr DVT/GI PPX -Lovenox -Protonix TAVON ORTIZ DO Nov 27, 2019 04:32
[2019-11-27] MEDS: POTASSIUM CL 10MEQ/50ML IVPB 50 ML IV SCH (05:58)
[2019-11-27] MEDS: MAGNESIUM 1 GM/100 ML IVPB 100 ML IV SCH (05:58)
[2019-11-27] MEDS: KCL 20 MEQ TAB (K-DUR) PO SCH (05:59)
[2019-11-27] MEDS: RT-ALBUTEROL INHALER HFA (VENTOLIN HFA) 18 GM IH SCH ×3 (07:08→21:18)
--- NOTE | 2019-11-27 08:18 | Physical Therapy Progress Note ---
Therapy Progress Note Patient is sedated and intubated. PT to follow and initiate treatment when patient is medically stable and able to actively participate with skilled therapy. CLARA DELGADO PT Nov 27, 2019 08:18
--- NOTE | 2019-11-27 08:26 | Occ Therapy Progress Note ---
Therapy Progress Note OT will continue to monitor pt. Pt. currently sedated and on ventilator support. Thank you for this referral. [id number] NANCY ROWLEY OT Nov 27, 2019 08:26
[2019-11-27] MEDS: PANTOPRAZOLE 40 MG (PROTONIX) VIAL IV SCH (08:55)
[2019-11-27] MEDS: dexAMETHasone INJECTION 20 MG in NS (IVPB) 50 ML IV SCH (08:55)
--- NOTE | 2019-11-27 14:48 | Diagnostic Imaging Report ---
INDICATION: PICC line placement. TIME OF EXAM: 02:13 p.m. COMPARISON: Correlation is made with prior chest from 11/24/2019. FINDINGS: Changes of median sternotomy are noted. ET tube has tip above the yanick. NG tube passes below the diaphragm. A left upper extremity PICC line has the tip in good position at the SVC-right atrial junction. There is no pneumothorax. Lungs appear to be clear. IMPRESSION: Satisfactory PICC line placement. Dictated by: Dictated on workstation # [id number]
--- NOTE | 2019-11-27 15:58 | NUR ---
"Received dietary consult regarding pt's vent status. Est kcal needs: 1550 kcal | 15 kcal/kg Est Pro needs: 62 g Pro | 0.6 g Pro/kg Note pt is currently intubated/sedated. Would recommend the following TF to meet pt's needs: Pulmocare 1.5 kcal at goal rate of 45ml/hr. Begin at 10ml/hr and increase by 10ml q6h as medically able and as tolerated. At goal rate, provides 1620 kcal (16 kcal/kg); 68 g Pro (0.7 g Pro/kg); and 848ml free water. Flush with 75ml water q4h for hydration status. With flushes, provides 1298ml free water. Will continue to follow and reassess as pt needs, intake, and status change. Chloé Cleary, RD LD [phone] (cell)"
[2019-11-27] MEDS: ENOXAPARIN 40 MG/0.4 ML (LOVENOX) SYR SC SCH (19:47)
[2019-11-27] MEDS: LACTATED RINGERS 1,000 ML IV SCH (23:56)
[2019-11-28] VITALS (29 sets, daily range): BP systolic 133–163; BP diastolic 56–73
[2019-11-28] MEDS: RT-ALBUTEROL INHALER HFA (VENTOLIN HFA) 18 GM IH SCH ×4 (01:55→19:02)
[2019-11-28] MEDS: DexMEDEtomidine PRE MIX 100 ML IV PRN ×2 (03:34→17:37)
[2019-11-28] MEDS: PROPOFOL DRIP (ICU) 100 ML IV SCH ×6 (03:34→22:14)
[2019-11-28 03:36] LABS: ABG BASE EXCESS 3.9 MMOL/L (-2.5-2.5); ABG OXYGEN SATURATION 97 % (94-100); ABG PCO2 37 MMHG (35-45); ABG PH 7.48 (7.37-7.43); ABG PO2 78 MMHG (79-93)
[2019-11-28 03:38] LABS: ALLENS TEST YES-POS; INSPIRED O2 40%; VENTILATOR YES
[2019-11-28 03:47] LABS: BASOPHILS % (AUTO) 0 % (0-10); EOSINOPHILS % (AUTO) 0 % (0-10); HEMATOCRIT 41 % (40-54); HEMOGLOBIN 13.8 g/dL (13.3-17.7); LYMPHOCYTES # (AUTO) 0.6 10^3/uL (1.0-4.0); LYMPHOCYTES % (AUTO) 4 % (12-44); MEAN CORPUSCULAR HEMOGLOBIN 30 pg (25-34); MEAN CORPUSCULAR HGB CONC 34 g/dL (32-36); MEAN CORPUSCULAR VOLUME 90 fL (80-99); MONOCYTES # (AUTO) 0.8 10^3/uL (0.0-1.0); MONOCYTES % (AUTO) 5 % (0-12); NEUTROPHILS # (AUTO) 15.7 10^3/uL (1.8-7.8); NEUTROPHILS % (AUTO) 90 % (42-75); PLATELET COUNT 232 10^3/uL (130-400); WHITE BLOOD COUNT 17.4 10^3/uL (4.3-11.0)
[2019-11-28 04:10] LABS: CHLORIDE 107 MMOL/L (98-107); POTASSIUM 4.4 MMOL/L (3.6-5.0)
[2019-11-28 04:11] LABS: ALBUMIN 2.4 GM/DL (3.2-4.5); SODIUM 142 MMOL/L (135-145)
[2019-11-28 04:12] LABS: CALCIUM 7.6 MG/DL (8.5-10.1)
[2019-11-28 04:13] LABS: GLUCOSE 296 MG/DL (70-105); TRIGLYCERIDES 180 MG/DL (<150)
[2019-11-28 04:14] LABS: CARBON DIOXIDE 25 MMOL/L (21-32)
[2019-11-28 04:15] LABS: BILIRUBIN,TOTAL 0.5 MG/DL (0.1-1.0)
[2019-11-28 04:16] LABS: PHOSPHORUS 3.9 MG/DL (2.3-4.7)
[2019-11-28 04:17] LABS: ALKALINE PHOSPHATASE 92 U/L (40-136); CREATININE SERUM 1.08 MG/DL (0.60-1.30); GFR ESTIMATED > 60
[2019-11-28 04:18] LABS: BUN/CREATININE RATIO 42
[2019-11-28 04:19] LABS: MAGNESIUM 2.6 MG/DL (1.6-2.4)
[2019-11-28 04:20] LABS: ALANINE AMINOTRANSFERASE 16 U/L (0-55)
[2019-11-28] MEDS: KCL 20 MEQ TAB (K-DUR) PO SCH (05:31)
[2019-11-28] MEDS: MAGNESIUM 1 GM/100 ML IVPB 100 ML IV SCH (05:31)
[2019-11-28] MEDS: inSUlin ASPART (NovoLOG) 1 UNIT/0.01 ML (CHARGE PER UNIT) SC SCH ×4 (05:31→23:55)
[2019-11-28] MEDS: POTASSIUM CL 10MEQ/50ML IVPB 50 ML IV SCH (05:31)
[2019-11-28] MEDS ORDERED: VANCOMYCIN INJECTION 1,000 MG in NS (IVPB) 250 ML IV SCH (06:00)
[2019-11-28] MEDS ORDERED: PHARMACY TO DOSE IV SCH (06:00)
--- NOTE | 2019-11-28 06:02 | Pulmonary Progress Note ---
Subjective Time Seen by a Provider: 06:03 Subjective/Events-last exam Pt is sedated on vent. Sepsis Event Evaluation Height, Weight, BMI Height: 5'8.00" Weight: 240lbs. 0.0oz. 108.681614fs; 31.19 BMI Method: Exam Exam Vital Signs Date Time Temp Pulse Resp B/P (MAP) Pulse Ox O2 Delivery O2 Flow Rate FiO2 11/28/19 05:00 53 10 141/56 (84) 94 Mechanical Ventilator 40.00 11/28/19 04:00 54 154/63 (93) 95 Mechanical Ventilator 40.00 11/28/19 03:36 95 Mechanical Ventilator 40 11/28/19 03:34 35.9 56 22 151/65 94 Mechanical Ventilator 40.00 11/28/19 03:34 56 151/65 11/28/19 03:00 55 153/66 (95) 95 Mechanical Ventilator 40.00 11/28/19 02:00 58 156/67 (96) 93 Mechanical Ventilator 40.00 11/28/19 01:56 56 22 94 40 11/28/19 01:00 54 11/28/19 01:00 54 159/66 (97) 95 Mechanical Ventilator 40.00 11/28/19 00:00 94 Mechanical Ventilator 40 11/28/19 00:00 56 151/63 (92) 93 Mechanical Ventilator 40.00 11/27/19 23:57 35.9 Mechanical Ventilator 40.00 11/27/19 23:49 61 152/65 11/27/19 23:00 58 148/63 (91) 94 Mechanical Ventilator 40.00 11/27/19 22:00 61 156/66 (96) 94 Mechanical Ventilator 40.00 11/27/19 21:19 61 23 94 40 11/27/19 21:00 60 158/67 (97) 95 Mechanical Ventilator 40.00 11/27/19 20:00 61 159/67 (97) 94 Mechanical Ventilator 40.00 11/27/19 20:00 94 Mechanical Ventilator 40 11/27/19 19:50 36.0 64 22 163/69 (100) 94 Mechanical Ventilator 40.00 11/27/19 19:47 61 160/67 11/27/19 19:00 62 159/67 (97) 92 Mechanical Ventilator 40.00 11/27/19 19:00 62 10/12/20 18:31 61 27 91 40 11/27/19 18:00 63 153/63 (93) 93 Mechanical Ventilator 40.00 11/27/19 17:46 36.0 94 22 160/71 96 Mechanical Ventilator 40.00 11/27/19 17:00 65 174/80 (111) 94 Mechanical Ventilator 40.00 11/27/19 16:16 96 Mechanical Ventilator 40 11/27/19 16:00 67 159/71 (100) 92 Mechanical Ventilator 40.00 11/27/19 15:51 36.0 11/27/19 15:00 68 146/65 (92) 93 Mechanical Ventilator 40.00 11/27/19 14:16 94 22 93 40 11/27/19 14:00 55 131/57 (81) 93 Mechanical Ventilator 40.00 11/27/19 13:00 55 133/59 (83) 94 Mechanical Ventilator 40.00 11/27/19 12:48 55 131/57 11/27/19 12:45 53 11/27/19 12:43 94 Mechanical Ventilator 40 11/27/19 12:00 55 131/57 (81) 95 Mechanical Ventilator 40.00 11/27/19 11:54 35.8 11/27/19 11:00 60 132/58 (82) 94 Mechanical Ventilator 40.00 11/27/19 10:45 56 22 94 40 11/27/19 10:00 61 122/53 (76) 95 Mechanical Ventilator 40.00 11/27/19 09:02 35.8 11/27/19 09:00 54 24 117/51 (73) 91 Mechanical Ventilator 40.00 11/27/19 08:55 62 112/51 11/27/19 08:15 94 Mechanical Ventilator 40 11/27/19 08:00 64 23 115/52 (73) 92 Mechanical Ventilator 40.00 11/27/19 07:08 61 22 95 40 11/27/19 07:00 61 23 112/51 (71) 95 Mechanical Ventilator 40.00 11/27/19 06:46 63 11/27/19 06:00 63 21 114/52 (72) 94 Mechanical Ventilator 40.00 I & O 11/28/19 07:00 Intake Total 1100 ml Output Total 1200 ml Balance -100 ml Height & Weight Height: 5'8.00" Weight: 240lbs. 0.0oz. 108.269532oy; 31.19 BMI Method: General Appearance: Other (sedated, on vent) HEENT: Other (ETT, OGT) Respiratory: Rhonci; No Wheezing; Other (on vent) Cardiovascular: No JVD, No Murmur, Bradycardia (50s) Capillary Refill: Less Than 3 Seconds Extremity: Normal Capillary Refill, Pedal Edema Neurologic/Psychiatric: Other (sedated, appears comfortable) Results Lab Laboratory Tests 11/27/19 03:00 11/28/19 03:30 Assessment/Plan Assessment/Plan COVID 19 PNA with acute respiratory failure with ARDS Pa02/Fi02 185 -Intubated 11/23 - decrease Vt to 450 and PEEP to 10. -S/P Remdesivir and Convalescent plasma given 11/21 and 11/23 -Pt understands these are EUA medications and consents to use. -Pt wants to be a full code. -Decadron 20mg daily - Will Decrease to 15mg daily -Repeat Ferritin and BNP -LR is currently at 30cc/hr -Awake proning - not tolerating PNA -s/p rocephin and azithromycin -Repeat PCT -Guerrero cultures ARF -Monitor - IVF currently LR at 30cc/hr DVT/GI PPX -Lovenox -Protonix TAVON ORTIZ DO Nov 28, 2019 06:02
[2019-11-28] MEDS ORDERED: VANCOMYCIN 1 GM/NS 250 ML IVPB IV SCH ×2 (06:30)
[2019-11-28] MEDS ORDERED: VANCOMYCIN 2000 MG/NS 500 ML IVPB IV NR ×2 (07:26)
[2019-11-28] MEDS: dexAMETHasone INJECTION 20 MG in NS (IVPB) 50 ML IV SCH (08:16)
--- NOTE | 2019-11-28 08:16 | Physical Therapy Progress Note ---
Therapy Progress Note Patient remains sedated and intubated. PT will continue to follow patient status and initiate treatment when medically stable and able to actively participate with skilled therapy. CLARA DELGADO PT Nov 28, 2019 08:16
[2019-11-28] MEDS: PANTOPRAZOLE 40 MG (PROTONIX) VIAL IV SCH (08:19)
[2019-11-28 08:36] LABS: ABG BASE EXCESS 1.6 MMOL/L (-2.5-2.5); ABG OXYGEN SATURATION 93 % (94-100); ABG PCO2 33 MMHG (35-45); ABG PH 7.48 (7.37-7.43); ABG PO2 59 MMHG (79-93); ABG TCO2 26.2 MMOL/L (21.0-31.0)
[2019-11-28 08:40] LABS: INSPIRED O2 70; VENTILATOR NO
[2019-11-28 08:41] LABS: ALLENS TEST YES-POS
[2019-11-28 08:42] LABS: PATIENT TEMP 35.4
--- NOTE | 2019-11-28 09:47 | Occ Therapy Progress Note ---
Therapy Progress Note Continuing to monitor pt. and will evaluate him for skilled treatment when he is not sedated and on mechanical ventilation. 0947 NANCY ROWLEY OT Nov 28, 2019 09:47
--- NOTE | 2019-11-28 11:35 | NUR ---
Telephone call to daughter Shonda to provide support and encouragement, daughter coping well and appreciative of call and care of staff.
--- NOTE | 2019-11-28 14:39 | NUR ---
"Est kcal needs: 1550 kcal | 15 kcal/kg Est Pro needs: 62 g Pro | 0.6 g Pro/kg Note pt is currently intubated/sedated and has been NPO x4d. Would recommend the following TF to meet pt's needs and reduce risk of malnutrition: Pulmocare 1.5 kcal at goal rate of 45ml/hr. Begin at 10ml/hr and increase by 10ml q6h as medically able and as tolerated. At goal rate, provides 1620 kcal (16kcal/kg); 68 g Pro (0.7 g Pro/kg); and 848ml free water. Flush with 75ml water q4h for hydration status. With flushes, provides 1298ml free water. Will continue to follow and reassess as pt needs, intake, and status change. Chloé Cleary MS RD LD [phone] (cell)"
[2019-11-28] MEDS: ENOXAPARIN 40 MG/0.4 ML (LOVENOX) SYR SC SCH (20:18)
[2019-11-28] MEDS: VANCOMYCIN 1500 MG/NS 500 ML IVPB IV SCH ×2 (20:19)
[2019-11-29] VITALS (29 sets, daily range): BP systolic 118–162; BP diastolic 46–68
[2019-11-29] MEDS: RT-ALBUTEROL INHALER HFA (VENTOLIN HFA) 18 GM IH SCH ×4 (02:30→19:28)
[2019-11-29] MEDS: LACTATED RINGERS 1,000 ML IV SCH ×2 (02:36→16:02)
[2019-11-29] MEDS: PROPOFOL DRIP (ICU) 100 ML IV SCH ×6 (02:37→22:39)
[2019-11-29 02:44] LABS: ABG BASE EXCESS 3.5 MMOL/L (-2.5-2.5); ABG OXYGEN SATURATION 98 % (94-100); ABG PCO2 44 MMHG (35-45); ABG PH 7.41 (7.37-7.43); ABG PO2 96 MMHG (79-93); ABG TCO2 29.3 MMOL/L (21.0-31.0)
[2019-11-29 02:54] LABS: BASOPHILS % (AUTO) 0 % (0-10); EOSINOPHILS % (AUTO) 0 % (0-10); HEMATOCRIT 41 % (40-54); HEMOGLOBIN 13.4 g/dL (13.3-17.7); LYMPHOCYTES # (AUTO) 0.6 10^3/uL (1.0-4.0); LYMPHOCYTES % (AUTO) 3 % (12-44); MEAN CORPUSCULAR HEMOGLOBIN 30 pg (25-34); MEAN CORPUSCULAR HGB CONC 33 g/dL (32-36); MEAN CORPUSCULAR VOLUME 92 fL (80-99); MEAN PLATELET VOLUME 9.8 fL (9.0-12.2); MONOCYTES # (AUTO) 1.1 10^3/uL (0.0-1.0); MONOCYTES % (AUTO) 6 % (0-12); NEUTROPHILS # (AUTO) 16.5 10^3/uL (1.8-7.8); NEUTROPHILS % (AUTO) 89 % (42-75); PLATELET COUNT 247 10^3/uL (130-400); WHITE BLOOD COUNT 18.6 10^3/uL (4.3-11.0)
[2019-11-29 02:57] LABS: ALLENS TEST ART LINE; INSPIRED O2 60%; VENTILATOR YES
[2019-11-29 03:22] LABS: ALANINE AMINOTRANSFERASE 19 U/L (0-55); ALBUMIN 2.2 GM/DL (3.2-4.5); ALKALINE PHOSPHATASE 81 U/L (40-136); BILIRUBIN,TOTAL 0.4 MG/DL (0.1-1.0); BUN/CREATININE RATIO 45; CALCIUM 7.4 MG/DL (8.5-10.1); CARBON DIOXIDE 25 MMOL/L (21-32); CHLORIDE 110 MMOL/L (98-107); CREATININE SERUM 0.97 MG/DL (0.60-1.30); GFR ESTIMATED > 60; GLUCOSE 244 MG/DL (70-105); MAGNESIUM 2.6 MG/DL (1.6-2.4); PHOSPHORUS 3.8 MG/DL (2.3-4.7); POTASSIUM 4.5 MMOL/L (3.6-5.0); SODIUM 143 MMOL/L (135-145); TOTAL PROTEIN 4.8 GM/DL (6.4-8.2)
[2019-11-29 03:45] LABS: BAND NEUTROPHILS 0 %; BASOPHILS % (MANUAL) 0 %; EOSINOPHILS % (MANUAL) 0 %; LYMPHOCYTES % (MANUAL) 4 %; MONOCYTES % (MANUAL) 4 %; NEUTROPHILS % (MANUAL) 92 %; RBC MORPH NORMAL
--- NOTE | 2019-11-29 05:46 | Pulmonary Progress Note ---
Subjective Time Seen by a Provider: 05:41 Subjective/Events-last exam Pt is sedated on vent. Sepsis Event Evaluation Height, Weight, BMI Height: 5'8.00" Weight: 240lbs. 0.0oz. 108.647473vm; 31.19 BMI Method: Exam Exam Vital Signs Date Time Temp Pulse Resp B/P (MAP) Pulse Ox O2 Delivery O2 Flow Rate FiO2 11/29/19 03:04 56 22 95 70 11/29/19 03:00 54 18 150/61 (90) 96 Mechanical Ventilator 60.00 11/29/19 02:37 60 161/68 11/29/19 02:00 53 14 156/63 (94) 96 Mechanical Ventilator 60.00 11/29/19 01:00 56 11/29/19 01:00 56 19 162/66 (98) 95 Mechanical Ventilator 60.00 11/29/19 00:00 60 21 161/68 (99) 96 Mechanical Ventilator 60.00 11/28/19 23:55 96 Mechanical Ventilator 60 11/28/19 23:45 36.6 11/28/19 23:00 58 17 163/68 (99) 96 Mechanical Ventilator 60.00 11/28/19 22:14 61 160/67 11/28/19 22:00 54 17 156/63 (94) 96 Mechanical Ventilator 60.00 11/28/19 21:00 61 27 91 60 11/28/19 21:00 58 11 158/66 (96) 96 Mechanical Ventilator 60.00 11/28/19 20:33 Mechanical Ventilator 60.00 11/28/19 20:17 36.4 58 24 156/66 (96) 97 Mechanical Ventilator 70.00 11/28/19 20:17 Mechanical Ventilator 70.00 11/28/19 20:00 98 Mechanical Ventilator 70 11/28/19 20:00 57 17 152/63 (92) 97 Mechanical Ventilator 80.00 11/28/19 19:51 36.4 11/28/19 19:02 61 26 97 70 11/28/19 19:00 62 21 162/68 (99) 98 Mechanical Ventilator 80.00 11/28/19 19:00 62 11/28/19 18:04 61 167/74 11/28/19 18:00 55 18 157/68 (97) 98 Mechanical Ventilator 80.00 11/28/19 17:37 36.3 62 23 156/69 97 Mechanical Ventilator 40.00 11/28/19 17:00 62 10 161/71 (101) 98 Mechanical Ventilator 80.00 11/28/19 16:10 97 Mechanical Ventilator 80 11/28/19 16:00 62 23 156/69 (98) 98 Mechanical Ventilator 80.00 11/28/19 15:34 36.3 11/28/19 15:16 61 25 98 80 11/28/19 15:15 158/70 11/28/19 15:00 58 17 148/65 (92) 98 Mechanical Ventilator 80.00 11/28/19 14:00 58 20 143/62 (89) 97 Mechanical Ventilator 80.00 11/28/19 13:00 55 133/58 (83) 96 Mechanical Ventilator 80.00 11/28/19 12:36 55 11/28/19 12:15 95 Mechanical Ventilator 80 11/28/19 12:00 52 137/59 (85) 96 Mechanical Ventilator 80.00 11/28/19 11:44 36.1 11/28/19 11:08 50 141/59 11/28/19 11:00 51 140/58 (85) 96 Mechanical Ventilator 80.00 11/28/19 10:00 50 150/61 (90) 96 Mechanical Ventilator 80.00 11/28/19 09:09 Mechanical Ventilator 80.00 11/28/19 09:00 52 157/58 (91) 87 Mechanical Ventilator 40.00 11/28/19 08:22 95 Mechanical Ventilator 80 11/28/19 08:00 55 24 146/60 (88) 88 Mechanical Ventilator 40.00 11/28/19 07:59 35.7 11/28/19 07:36 50 139/58 11/28/19 07:22 45 22 92 40 11/28/19 07:00 52 10 157/62 (93) 95 Mechanical Ventilator 40.00 11/28/19 06:41 52 11/28/19 06:00 50 15 145/58 (87) 94 Mechanical Ventilator 40.00 I & O 11/29/19 07:00 Intake Total 572 ml Output Total 1265 ml Balance -693 ml Height & Weight Height: 5'8.00" Weight: 240lbs. 0.0oz. 108.233265gt; 31.19 BMI Method: General Appearance: Other (sedated, on vent) HEENT: Other (ETT, OGT) Respiratory: Rhonci; No Wheezing; Other (on vent) Cardiovascular: No JVD, No Murmur, Bradycardia (50s) Capillary Refill: Less Than 3 Seconds Extremity: Normal Capillary Refill, Pedal Edema Neurologic/Psychiatric: Other (sedated, appears comfortable) Results Lab Laboratory Tests 11/28/19 03:30 11/29/19 02:35 Assessment/Plan Assessment/Plan COVID 19 PNA with acute respiratory failure with ARDS Pa02/Fi02 185 decreased to 160 -Intubated 11/23 - decrease Vt to 450, 22 and PEEP to 10. -- -Start trophic TF with pulmicare. -S/P Remdesivir and Convalescent plasma given 11/21 and 11/23 -Pt understands these are EUA medications and consents to use. -Pt wants to be a full code. -Decadron 20mg daily - -Repeat Ferritin and BNP -LR is currently at 30cc/hr -Awake proning - not tolerating PNA -s/p rocephin and azithromycin -Repeat PCT -Guerrero cultures ARF -Monitor - IVF currently LR at 30cc/hr DVT/GI PPX -Lovenox -Protonix TAVON ORTIZ DO Nov 29, 2019 05:46
[2019-11-29] MEDS ORDERED: FUROSEMIDE 40 MG/4 ML INJ (LASIX) IVP ONE (06:00)
[2019-11-29] MEDS: DexMEDEtomidine PRE MIX 100 ML IV PRN ×2 (06:08→18:22)
[2019-11-29] MEDS: inSUlin ASPART (NovoLOG) 1 UNIT/0.01 ML (CHARGE PER UNIT) SC SCH ×4 (06:52→22:41)
[2019-11-29] MEDS: POTASSIUM CL 10MEQ/50ML IVPB 50 ML IV SCH (06:53)
[2019-11-29] MEDS: KCL 20 MEQ TAB (K-DUR) PO SCH (06:53)
[2019-11-29] MEDS: MAGNESIUM 1 GM/100 ML IVPB 100 ML IV SCH (06:53)
[2019-11-29] MEDS ORDERED: TROUGH ORDER-PHARMACY XX NR (07:00)
--- NOTE | 2019-11-29 07:28 | Diagnostic Imaging Report ---
INDICATION: Worsening hypoxia. COVID positive TECHNIQUE: Single view chest 6:05 AM. CORRELATION STUDY: 11/27/2019 FINDINGS: Poststernotomy changes. Endotracheal tube tip is somewhat obscured but appears be over the trachea. Left-sided central line tip at the caval atrial junction. Heart size remains enlarged. Vascular congestion has adversely changed with what appears to be component of pulmonary edema. Scattered groundglass opacities at both lung banerjee also appear slightly more prominent. Probable small effusions. IMPRESSION: 1. Generally stable appearance about support lines and tubes and some limitations. 2. Overall appears to be increasing component of pulmonary vascular congestion and edema from prior. Additional superimposed groundglass opacities also appear more pronounced. Report was faxed to [facility] Infection Control by pro at 8:27am. Dictated by: Dictated on workstation # [id number]
[2019-11-29] MEDS: dexAMETHasone INJECTION 20 MG in NS (IVPB) 50 ML IV SCH (07:48)
[2019-11-29] MEDS: PANTOPRAZOLE 40 MG (PROTONIX) VIAL IV SCH (07:48)
--- NOTE | 2019-11-29 07:54 | Occ Therapy Progress Note ---
Therapy Progress Note Pt remains sedated and on mechanical ventilation. OT will continue to monitor pt and initiate tx when pt is more medically stable and able to actively participate in skilled therapies. EVARISTO HERNANDEZ OT Nov 29, 2019 07:54
[2019-11-29 08:01] LABS: BILIRUBIN,URINE NEGATIVE (NEGATIVE); CLARITY,URINE CLEAR; COLOR,URINE YELLOW; GLUCOSE, URINE (UA) NEGATIVE (NEGATIVE); KETONES,URINE NEGATIVE (NEGATIVE); LEUKOCYTE ESTERASE ,URINE NEGATIVE (NEGATIVE); NITRITE,URINE NEGATIVE (NEGATIVE); PH,URINE 5.5 (5-9); PROTEIN,URINE NEGATIVE (NEGATIVE)
[2019-11-29 08:26] LABS: AMORPHOUS SEDIMENT,UR RARE AMOR URATES /LPF; BACTERIA,URINE TRACE /HPF; RBC,URINE 0-2 /HPF; SQUAMOUS EPITHELIAL CELL,UR RARE /HPF; WBC,URINE RARE /HPF
[2019-11-29] MEDS: VANCOMYCIN 1500 MG/NS 500 ML IVPB IV SCH ×4 (09:24→19:53)
[2019-11-29] MEDS: ARTIFICIAL TEARS OINT (LACRI-LUBE) 3.5 GM TUBE OU SCH ×2 (09:27→19:53)
--- NOTE | 2019-11-29 09:39 | NUR ---
DR ORTIZ AT DOOR NEW VERBAL ORDERS RECEIVED TO DECREASE FIO2 TO 55%. FIO2 DECREASED. PT SA02 NOTED AT 95%
--- NOTE | 2019-11-29 10:41 | NUR ---
PTD VANCOMYCIN LABS: TROUGH LEVEL PRIOR TO 3RD DOSE 18.7 PLAN: CONTINUE WITH CURRENT DOSING AND REPEAT A TROUGH LEVEL ON 11/29 @ 0700 (CLOSER TO STEADY STATE EVALUATION?)
--- NOTE | 2019-11-29 11:40 | Physical Therapy Progress Note ---
Therapy Progress Note Pt remains on a mechanical ventilator, will continue to follow. No treatment rendered at this time. ETHEL CASIANO PT Nov 29, 2019 11:40
--- NOTE | 2019-11-29 14:28 | NUR ---
"TF FOLLOW-UP Est kcal needs: 1550 kcal | 15 kcal/kg Est Pro needs: 62 g Pro | 0.6 g Pro/kg Note pt is currently intubated/sedated. Pt is currently receiving following TF: Pulmocare 1.5 at rate of 15ml/hr. Provides 540 kcal (5 kcal/kg); 23 g Pro (0.2 g Pro/kg); and 283ml free water. Would recommend continuing at current rate until pt medically stable to progress to goal rate of 45ml/hr. At goal rate, provides 1620 kcal (16 kcal/kg); 68 g Pro (0.7 g Pro/kg); and 848ml free water. Flush with 75ml water q4h for hydration status. With flushes, provides 1298ml free water. Will continue to follow and reassess as pt needs, intake, and status change. Chloé Cleary, MS RD LD [phone] (cell)"
--- NOTE | 2019-11-29 16:59 | NUR ---
DR ORTIZ NOTIFIED OF PT'S SPUTUM CULTURE RESULTS, NO NEW ORDERS RECEIVED.
[2019-11-29] MEDS: ENOXAPARIN 40 MG/0.4 ML (LOVENOX) SYR SC SCH (19:53)
[2019-11-30] VITALS (30 sets, daily range): BP systolic 133–191; BP diastolic 50–84
[2019-11-30] MEDS: DexMEDEtomidine PRE MIX 100 ML IV PRN ×3 (02:13→18:25)
[2019-11-30] MEDS: PROPOFOL DRIP (ICU) 100 ML IV SCH ×6 (02:14→22:18)
[2019-11-30 02:32] LABS: ABG BASE EXCESS 3.6 MMOL/L (-2.5-2.5); ABG OXYGEN SATURATION 96 % (94-100); ABG PCO2 41 MMHG (35-45); ABG PH 7.44 (7.37-7.43); ABG PO2 77 MMHG (79-93); ABG TCO2 29.1 MMOL/L (21.0-31.0)
[2019-11-30 02:35] LABS: ALLENS TEST POS; INSPIRED O2 45%; PATIENT TEMP 36; VENTILATOR YES
[2019-11-30] MEDS: RT-ALBUTEROL INHALER HFA (VENTOLIN HFA) 18 GM IH SCH ×4 (02:37→18:58)
[2019-11-30 02:39] LABS: ALBUMIN 2.3 GM/DL (3.2-4.5); CHLORIDE 110 MMOL/L (98-107); POTASSIUM 4.2 MMOL/L (3.6-5.0); SODIUM 145 MMOL/L (135-145)
[2019-11-30 02:40] LABS: CALCIUM 7.5 MG/DL (8.5-10.1)
[2019-11-30 02:41] LABS: GLUCOSE 205 MG/DL (70-105); TOTAL PROTEIN 4.9 GM/DL (6.4-8.2); TRIGLYCERIDES 209 MG/DL (<150)
[2019-11-30 02:42] LABS: CARBON DIOXIDE 25 MMOL/L (21-32)
[2019-11-30 02:43] LABS: BILIRUBIN,TOTAL 0.5 MG/DL (0.1-1.0)
[2019-11-30 02:45] LABS: ALKALINE PHOSPHATASE 96 U/L (40-136); CREATININE SERUM 0.96 MG/DL (0.60-1.30); GFR ESTIMATED > 60; PHOSPHORUS 3.9 MG/DL (2.3-4.7)
[2019-11-30] MEDS: KCL 20 MEQ TAB (K-DUR) PO SCH (02:45)
[2019-11-30] MEDS: POTASSIUM CL 10MEQ/50ML IVPB 50 ML IV SCH (02:45)
[2019-11-30 02:46] LABS: BUN/CREATININE RATIO 51
[2019-11-30 02:48] LABS: ALANINE AMINOTRANSFERASE 48 U/L (0-55); MAGNESIUM 2.4 MG/DL (1.6-2.4)
[2019-11-30] MEDS: MAGNESIUM 1 GM/100 ML IVPB 100 ML IV SCH (02:49)
[2019-11-30 02:50] LABS: BASOPHILS % (AUTO) 0 % (0-10); EOSINOPHILS % (AUTO) 0 % (0-10); HEMATOCRIT 42 % (40-54); HEMOGLOBIN 13.7 g/dL (13.3-17.7); LYMPHOCYTES # (AUTO) 0.6 10^3/uL (1.0-4.0); LYMPHOCYTES % (AUTO) 3 % (12-44); MEAN CORPUSCULAR HEMOGLOBIN 30 pg (25-34); MEAN CORPUSCULAR HGB CONC 33 g/dL (32-36); MEAN CORPUSCULAR VOLUME 91 fL (80-99); MEAN PLATELET VOLUME 9.9 fL (9.0-12.2); MONOCYTES # (AUTO) 0.9 10^3/uL (0.0-1.0); MONOCYTES % (AUTO) 5 % (0-12); NEUTROPHILS # (AUTO) 15.9 10^3/uL (1.8-7.8); NEUTROPHILS % (AUTO) 90 % (42-75); PLATELET COUNT 260 10^3/uL (130-400); WHITE BLOOD COUNT 17.7 10^3/uL (4.3-11.0)
--- NOTE | 2019-11-30 04:09 | Pulmonary Progress Note ---
Subjective Time Seen by a Provider: 04:04 Sepsis Event Evaluation Height, Weight, BMI Height: 5'8.00" Weight: 240lbs. 0.0oz. 108.208307yh; 31.19 BMI Method: Exam Exam Vital Signs Date Time Temp Pulse Resp B/P (MAP) Pulse Ox O2 Delivery O2 Flow Rate FiO2 11/30/19 02:37 56 26 94 45 11/30/19 02:31 36.0 11/30/19 02:14 146/56 11/30/19 02:13 55 11/30/19 01:00 60 11/29/19 23:04 54 24 95 45 11/29/19 23:00 54 15 132/49 (76) 95 Mechanical Ventilator 45.00 11/29/19 22:41 36.0 11/29/19 22:39 151/61 11/29/19 22:00 54 13 138/55 (82) 95 Mechanical Ventilator 45.00 11/29/19 21:00 54 16 142/57 (85) 95 Mechanical Ventilator 45.00 11/29/19 20:02 96 Mechanical Ventilator 45 11/29/19 20:00 56 17 144/56 (85) 95 Mechanical Ventilator 45.00 11/29/19 19:58 36.3 Mechanical Ventilator 45.00 11/29/19 19:54 144/56 11/29/19 19:29 62 26 94 45 11/29/19 19:00 60 22 150/58 (88) 94 Mechanical Ventilator 45.00 11/29/19 19:00 63 11/29/19 18:22 36.2 61 17 150/58 93 Mechanical Ventilator 45.00 11/29/19 18:00 61 17 150/58 (88) 93 Mechanical Ventilator 45.00 11/29/19 17:00 60 17 148/56 (86) 93 Mechanical Ventilator 45.00 11/29/19 16:00 36.2 11/29/19 16:00 61 19 152/59 (90) 92 Mechanical Ventilator 45.00 11/29/19 15:59 59 152/58 11/29/19 15:00 59 20 137/51 (79) 94 Mechanical Ventilator 45.00 11/29/19 14:50 62 26 93 45 11/29/19 14:00 50 118/46 (70) 87 Mechanical Ventilator 45.00 10/14/20 13:00 53 140/61 (87) 93 Mechanical Ventilator 45.00 11/29/19 12:34 52 11/29/19 12:00 54 141/59 (86) 94 Mechanical Ventilator 55.00 11/29/19 11:21 35.8 11/29/19 11:20 53 142/62 11/29/19 11:18 Mechanical Ventilator 45.00 11/29/19 11:05 51 25 99 55 11/29/19 11:00 52 146/62 (90) 99 Mechanical Ventilator 55.00 11/29/19 10:00 53 144/61 (88) 97 Mechanical Ventilator 55.00 11/29/19 09:38 96 55.00 11/29/19 09:00 53 141/59 (86) 97 Mechanical Ventilator 60.00 11/29/19 08:56 55 25 97 60 11/29/19 08:10 96 Mechanical Ventilator 60 11/29/19 08:00 53 53 146/64 (91) 97 Mechanical Ventilator 60.00 11/29/19 07:39 35.8 11/29/19 07:00 46 162/65 (97) 98 Mechanical Ventilator 60.00 11/29/19 06:57 49 141/57 11/29/19 06:43 49 11/29/19 06:08 49 11/29/19 06:00 51 141/57 (85) 95 Mechanical Ventilator 60.00 11/29/19 05:00 54 16 160/66 (97) 95 Mechanical Ventilator 60.00 I & O 11/30/19 07:00 Intake Total 400 ml Output Total 1900 ml Balance -1500 ml Height & Weight Height: 5'8.00" Weight: 240lbs. 0.0oz. 108.571458nf; 31.19 BMI Method: General Appearance: Other (sedated, on vent) HEENT: Other (ETT, OGT) Respiratory: Rhonci; No Wheezing; Other (on vent) Cardiovascular: No JVD, No Murmur, Bradycardia (50s) Capillary Refill: Less Than 3 Seconds Extremity: Normal Capillary Refill, Pedal Edema Neurologic/Psychiatric: Other (sedated, appears comfortable) Results Lab Laboratory Tests 11/29/19 02:35 11/30/19 02:16 Assessment/Plan Assessment/Plan COVID 19 PNA with acute respiratory failure with ARDS Pa02/Fi02 185 decreased to 160 -Intubated 11/23 - decrease Vt to 450, 22 and PEEP to 10. -- Decrease VT to 420 -Repeat ABG 1hr after change. - trophic TF with pulmicare. -S/P Remdesivir and Convalescent plasma given 11/21 and 11/23 -Pt understands these are EUA medications and consents to use. -Pt wants to be a full code. -Decadron 20mg daily - Decrease to 10mg daily -LR is currently at 30cc/hr -Awake proning - not tolerating PNA -s/p rocephin and azithromycin -Repeat PCT -Geurrero cultures ARF -Monitor - IVF currently LR at 30cc/hr DVT/GI PPX -Lovenox ppx dose -Protonix TAVON ORTIZ DO Nov 30, 2019 04:09
[2019-11-30] MEDS: inSUlin ASPART (NovoLOG) 1 UNIT/0.01 ML (CHARGE PER UNIT) SC SCH ×3 (05:36→18:24)
[2019-11-30 05:48] LABS: ABG BASE EXCESS 4.1 MMOL/L (-2.5-2.5); ABG OXYGEN SATURATION 97 % (94-100); ABG PCO2 41 MMHG (35-45); ABG PH 7.45 (7.37-7.43); ABG PO2 79 MMHG (79-93); ABG TCO2 29.6 MMOL/L (21.0-31.0)
[2019-11-30 05:49] LABS: ALLENS TEST ART LINE; INSPIRED O2 45%; PATIENT TEMP 35.6; VENTILATOR YES
[2019-11-30] MEDS ORDERED: TROUGH ORDER-PHARMACY XX ONE (07:00)
[2019-11-30] MEDS: VANCOMYCIN 1500 MG/NS 500 ML IVPB IV SCH ×4 (07:41→17:09)
[2019-11-30] MEDS: ARTIFICIAL TEARS OINT (LACRI-LUBE) 3.5 GM TUBE OU SCH ×2 (08:17→20:09)
[2019-11-30] MEDS: PANTOPRAZOLE 40 MG (PROTONIX) VIAL IV SCH (08:17)
--- NOTE | 2019-11-30 08:17 | Physical Therapy Progress Note ---
Therapy Progress Note Patient remains sedated and intubated. PT will continue to monitor patient status. CLARA DELGADO PT Nov 30, 2019 08:17
--- NOTE | 2019-11-30 08:47 | NUR ---
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 PER [facility] ESTIMATED A TRUE TROUGH LEVEL IS CLOSER TO 17 OR 18MCG/ML. WILL RE-EVALUATE AND ADJUST DOSING AT THAT TIME.
--- NOTE | 2019-11-30 09:17 | Occ Therapy Progress Note ---
Therapy Progress Note Pt remains intubated and sedated. OT will continue to monitor pt's status and initiate tx when pt is more medically stable and able to actively participate in skilled therapy EVARISTO HERNANDEZ OT Nov 30, 2019 09:17
--- NOTE | 2019-11-30 11:57 | Occ Therapy Progress Note ---
Therapy Progress Note Patient continues to be on mechanical ventilator support and sedation. Please send new orders for skilled therapy when pt. is medically stable. OT will d/c pt at this time. EVARISTO HERNANDEZ OT Nov 30, 2019 11:57
--- NOTE | 2019-11-30 14:02 | Physical Therapy Progress Note ---
Therapy Progress Note PT to dismiss patient due to continued vent requirements. PT will require new orders when patient is able to actively participate with skilled therapy. CLARA DELGADO PT Nov 30, 2019 14:02
--- NOTE | 2019-11-30 15:20 | NUR ---
"TF FOLLOW-UP Est kcal needs: 1550 kcal | 15 kcal/kg Est Pro needs: 62 g Pro | 0.6 g Pro/kg Note pt is currently intubated/sedated. Pt is currently receiving following TF: Pulmocare 1.5 at rate of 15ml/hr. During care rounds, plan of care is to start conservatively increasing to goal rate of 45ml/hr. Would recommend increasing by 10ml q8h as medically able and as tolerated. At goal rate, provides 1620 kcal (16 kcal/kg); 68 g Pro (0.7 g Pro/kg); and 848ml free water. Flush with 75ml water q4h for hydration status. With flushes, provides 1298ml free water. Will continue to follow and reassess as pt needs, intake, and status change. Chloé Cleary, MS RD LD [phone] (cell)"
[2019-11-30] MEDS ORDERED: proPOfol 200 MG/20 ML (DIPRIVAN) VIAL IV ONE (15:56)
[2019-11-30] MEDS: ENOXAPARIN 40 MG/0.4 ML (LOVENOX) SYR SC SCH (20:09)
[2019-12-01] VITALS (30 sets, daily range): BP systolic 109–196; BP diastolic 37–77
[2019-12-01] MEDS: inSUlin ASPART (NovoLOG) 1 UNIT/0.01 ML (CHARGE PER UNIT) SC SCH ×4 (00:36→17:56)
[2019-12-01] MEDS: LACTATED RINGERS 1,000 ML IV SCH ×2 (00:57→02:47)
[2019-12-01] MEDS: RT-ALBUTEROL INHALER HFA (VENTOLIN HFA) 18 GM IH SCH ×4 (02:18→18:52)
[2019-12-01] MEDS: PROPOFOL DRIP (ICU) 100 ML IV SCH ×6 (02:47→22:16)
[2019-12-01] MEDS: DexMEDEtomidine PRE MIX 100 ML IV PRN (02:47)
[2019-12-01 03:04] LABS: BASOPHILS % (AUTO) 0 % (0-10); EOSINOPHILS % (AUTO) 0 % (0-10); HEMATOCRIT 42 % (40-54); HEMOGLOBIN 13.8 g/dL (13.3-17.7); LYMPHOCYTES # (AUTO) 0.8 10^3/uL (1.0-4.0); LYMPHOCYTES % (AUTO) 4 % (12-44); MEAN CORPUSCULAR HEMOGLOBIN 30 pg (25-34); MEAN CORPUSCULAR HGB CONC 33 g/dL (32-36); MEAN CORPUSCULAR VOLUME 91 fL (80-99); MEAN PLATELET VOLUME 9.8 fL (9.0-12.2); MONOCYTES % (AUTO) 6 % (0-12); NEUTROPHILS # (AUTO) 15.3 10^3/uL (1.8-7.8); NEUTROPHILS % (AUTO) 88 % (42-75); PLATELET COUNT 258 10^3/uL (130-400); WHITE BLOOD COUNT 17.3 10^3/uL (4.3-11.0)
[2019-12-01 03:05] LABS: ABG BASE EXCESS 2.3 MMOL/L (-2.5-2.5); ABG OXYGEN SATURATION 93 % (94-100); ABG PCO2 38 MMHG (35-45); ABG PH 7.44 (7.37-7.43); ABG PO2 64 MMHG (79-93); ABG TCO2 27.5 MMOL/L (21.0-31.0); ALLENS TEST ART LINE; INSPIRED O2 45%; VENTILATOR YES
[2019-12-01 03:24] LABS: ALBUMIN 2.3 GM/DL (3.2-4.5); CHLORIDE 111 MMOL/L (98-107); POTASSIUM 4.4 MMOL/L (3.6-5.0); SODIUM 143 MMOL/L (135-145)
[2019-12-01 03:26] LABS: CALCIUM 7.6 MG/DL (8.5-10.1)
[2019-12-01 03:27] LABS: GLUCOSE 248 MG/DL (70-105); TOTAL PROTEIN 4.9 GM/DL (6.4-8.2)
[2019-12-01 03:28] LABS: CARBON DIOXIDE 23 MMOL/L (21-32)
[2019-12-01 03:29] LABS: BILIRUBIN,TOTAL 0.6 MG/DL (0.1-1.0)
[2019-12-01 03:30] LABS: ALKALINE PHOSPHATASE 111 U/L (40-136); PHOSPHORUS 3.2 MG/DL (2.3-4.7)
[2019-12-01 03:31] LABS: CREATININE SERUM 0.92 MG/DL (0.60-1.30); GFR ESTIMATED > 60
[2019-12-01 03:32] LABS: BUN/CREATININE RATIO 52
[2019-12-01 03:33] LABS: ALANINE AMINOTRANSFERASE 42 U/L (0-55); MAGNESIUM 2.4 MG/DL (1.6-2.4)
[2019-12-01] MEDS: POTASSIUM CL 10MEQ/50ML IVPB 50 ML IV SCH (03:46)
[2019-12-01] MEDS: MAGNESIUM 1 GM/100 ML IVPB 100 ML IV SCH (03:46)
[2019-12-01] MEDS: KCL 20 MEQ TAB (K-DUR) PO SCH (03:47)
[2019-12-01] MEDS: VANCOMYCIN 1500 MG/NS 500 ML IVPB IV SCH ×2 (04:50)
--- NOTE | 2019-12-01 07:31 | NUR ---
PTD VANCOMYCIN CULTURES: MRSA SPUTUM (RARE) LABS: SCR 0.92 VANCOMYCIN LEVELS 11/29 @ 0537 26.7; 11/29 @ 1300 19.9 PHARMACOKINETIC CALCULATIONS: T1/2 ~ 17.4 HR PLAN: CHANGE VANCOMYCIN TO 1,500MG IV Q24H WITH NEXT DOSE SCHEDULED FOR 12/01 @ 1200. THE LAST DOSE WAS GIVE AT 0400 THIS AM (AFTER BEING GIVEN Q12H). WE WILL RECHECK A TROUGH LEVEL ON 12/03 @ 1100.
--- NOTE | 2019-12-01 07:49 | Pulmonary Progress Note ---
Subjective Time Seen by a Provider: 07:46 Subjective/Events-last exam sedated on vent. Sepsis Event Evaluation Height, Weight, BMI Height: 5'8.00" Weight: 240lbs. 0.0oz. 108.283669ta; 31.19 BMI Method: Exam Exam Vital Signs Date Time Temp Pulse Resp B/P (MAP) Pulse Ox O2 Delivery O2 Flow Rate FiO2 12/01/19 07:19 60 157/60 12/01/19 06:56 60 30 90 40 12/01/19 06:00 60 16 156/59 (91) 91 Mechanical Ventilator 40.00 12/01/19 05:00 60 13 150/58 (88) 94 Mechanical Ventilator 40.00 12/01/19 04:00 60 17 159/63 (95) 93 Mechanical Ventilator 40.00 12/01/19 03:00 56 22 153/59 (90) 93 Mechanical Ventilator 40.00 12/01/19 02:47 36.0 58 27 175/75 93 Mechanical Ventilator 45.00 12/01/19 02:47 58 175/75 12/01/19 02:22 Mechanical Ventilator 40.00 12/01/19 02:18 58 27 93 40 12/01/19 02:00 56 19 166/68 (100) 95 Mechanical Ventilator 45.00 12/01/19 01:00 60 12/01/19 01:00 56 17 162/66 (98) 93 Mechanical Ventilator 45.00 12/01/19 00:57 36.0 12/01/19 00:00 58 18 171/73 (105) 93 Mechanical Ventilator 45.00 11/30/19 23:00 60 19 170/72 (104) 94 Mechanical Ventilator 45.00 11/30/19 22:53 58 27 93 45 11/30/19 22:18 62 173/74 11/30/19 22:00 60 18 173/76 (108) 93 Mechanical Ventilator 45.00 11/30/19 21:00 60 20 174/74 (107) 93 Mechanical Ventilator 45.00 11/30/19 20:51 92 Mechanical Ventilator 45 11/30/19 20:12 35.9 Mechanical Ventilator 45.00 11/30/19 20:00 60 22 171/74 (106) 93 Mechanical Ventilator 45.00 11/30/19 19:00 61 17 176/77 (110) 93 Mechanical Ventilator 45.00 11/30/19 19:00 62 11/30/19 18:59 61 27 93 45 11/30/19 18:25 59 11/30/19 18:25 173/75 11/30/19 18:00 63 18 177/78 (111) 94 Mechanical Ventilator 45.00 11/30/19 17:00 64 16 191/84 (119) 94 Mechanical Ventilator 45.00 11/30/19 16:01 36.2 11/30/19 16:00 58 24 163/72 (102) 94 Mechanical Ventilator 45.00 11/30/19 15:00 66 17 149/63 (91) 94 Mechanical Ventilator 45.00 11/30/19 14:45 65 27 94 45 11/30/19 14:21 52 142/58 11/30/19 14:00 54 22 148/63 (91) 95 Mechanical Ventilator 45.00 11/30/19 13:19 57 11/30/19 13:00 56 32 142/60 (87) 94 Mechanical Ventilator 45.00 11/30/19 12:00 53 17 145/61 (89) 96 Mechanical Ventilator 45.00 11/30/19 11:35 35.9 11/30/19 11:20 54 27 96 45 11/30/19 11:00 55 17 146/60 (88) 97 Mechanical Ventilator 45.00 11/30/19 10:02 53 147/61 11/30/19 10:01 53 147/61 11/30/19 10:00 56 15 153/63 (93) 97 Mechanical Ventilator 45.00 11/30/19 09:00 35.7 55 17 150/61 (90) 99 Mechanical Ventilator 45.00 11/30/19 08:00 Mechanical Ventilator 45 11/30/19 08:00 35.7 58 20 151/63 (92) 95 Mechanical Ventilator 45.00 I & O 12/01/19 07:00 Intake Total 1280 ml Output Total 1375 ml Balance -95 ml Height & Weight Height: 5'8.00" Weight: 240lbs. 0.0oz. 108.252695at; 31.19 BMI Method: General Appearance: Other (sedated, on vent) HEENT: Other (ETT, OGT) Respiratory: Rhonci; No Wheezing; Other (on vent) Cardiovascular: No JVD, No Murmur, Bradycardia (50s) Capillary Refill: Less Than 3 Seconds Extremity: Normal Capillary Refill, Pedal Edema Neurologic/Psychiatric: Other (sedated, appears comfortable) Results Lab Laboratory Tests 11/30/19 02:16 12/01/19 03:00 Assessment/Plan Assessment/Plan COVID 19 PNA with acute respiratory failure with ARDS Pa02/Fi02 185 decreased to 160 -Intubated 11/23 - decrease Vt to 400. RR 22 and PEEP to 10. -- -Repeat ABG in 1hr - TF with pulmicare. -S/P Remdesivir and Convalescent plasma given 11/21 and 11/23 -Pt understands these are EUA medications and consents to use. -Pt wants to be a full code. -Decadron 6mg daily -LR is currently at 30cc/hr PNA with MRSA -Continue Vanco -Guerrero cultures ARF -Monitor - IVF currently LR at 30cc/hr DVT/GI PPX -Lovenox ppx dose -Protonix I discussed with and answered all questions/concerns. TAVON ORTIZ DO Dec 01, 2019 07:49
[2019-12-01] MEDS: ARTIFICIAL TEARS OINT (LACRI-LUBE) 3.5 GM TUBE OU SCH ×2 (08:51→20:49)
[2019-12-01] MEDS: PANTOPRAZOLE 40 MG (PROTONIX) VIAL IV SCH (08:51)
--- NOTE | 2019-12-01 09:12 | Diagnostic Imaging Report ---
INDICATION: Shortness of breath. Frontal chest obtained at 8:50 a.m. and compared to 11/29/2019. FINDINGS: There is cardiomegaly and poststernotomy change. There is central vascular congestion with interstitial edema versus infiltrate. There is no pneumothorax or pleural fluid. ET tube tip overlies mid to upper trachea. The film was taken in somewhat lordotic projection. IMPRESSION: Cardiomegaly with poststernotomy change. There is central vascular congestion with some interstitial edema versus infiltrate. ET tube tip overlies upper trachea. Dictated by: Dictated on workstation # [id number]
[2019-12-01] MEDS: fentaNYL INJECTION 1,250 MCG in NS (IVPB) 250 ML IV SCH (09:54)
--- NOTE | 2019-12-01 13:08 | NUR ---
DR ORTIZ NOTIFIED OF LOW URINE OUTPUT, ORDER RECEIVED TO GIVE 1L LR BOLUS OVER 2HOURS.
[2019-12-01] MEDS ORDERED: LACTATED RINGERS 1,000 ML IV ONE (13:30)
--- NOTE | 2019-12-01 13:48 | NUR ---
"TF FOLLOW-UP Est kcal needs: 1550 kcal | 15 kcal/kg Est Pro needs: 62 g Pro | 0.6 g Pro/kg Note pt is currently intubated/sedated. Pt is currently receiving following TF: Pulmocare 1.5 at rate of 15ml/hr. Note plan of care is to conservatively increase to goal rate of 45ml/hr. Would recommend increasing by 10ml q8h as medically able and as tolerated. At goal rate, provides 1620 kcal (16 kcal/kg); 68 g Pro (0.7 g Pro/kg); and 848ml free water. Flush with 75ml water q4h for hydration status. With flushes, provides 1298ml free water. Will continue to follow and reassess as pt needs, intake, and status change. Chloé Cleary, MS RD LD [phone] (cell)"
[2019-12-01] MEDS: ENOXAPARIN 40 MG/0.4 ML (LOVENOX) SYR SC SCH (20:48)
[2019-12-01 22:35] LABS: ABG BASE EXCESS 0.4 MMOL/L (-2.5-2.5); ABG OXYGEN SATURATION 92 % (94-100); ABG PO2 78 MMHG (79-93); ABG TCO2 30.5 MMOL/L (21.0-31.0)
[2019-12-01 22:36] LABS: ABG PCO2 78 MMHG (35-45)
[2019-12-01 22:37] LABS: ABG PH 7.18 (7.37-7.43); ALLENS TEST YES-POS
[2019-12-01 22:38] LABS: INSPIRED O2 60%; PATIENT TEMP 36.7; VENTILATOR YES
--- NOTE | 2019-12-01 22:40 | NUR ---
2230: END TIDAL: 55-57 AT THIS TIME. THIS RN SENT DOWN AB: CRITICAL RESULTS CALLED TO THIS RN: pH: 7.18, pCO2: 78. 2245: CRITICAL LAB RESULTS CALLED TO E-ICU AT THIS TIME. THIS RN ALSO REPORTED PT IS TACHYCARDIC TONIGHT LOW 100'S WHEREAS LAST NIGHT PT WAS BRADYCARDIC IN THE 50'S. VENTILATOR SETTINGS DISCUSSED WITH DOCTOR, NEW ORDERS RECEIVED TO TURN RESPIRATORY RATE FROM 22 TO 28 AND TO REPEAT ABG AT MIDNIGHT. R/T NOTIFIED OF NEW ORDERS.
[2019-12-02] VITALS (31 sets, daily range): BP systolic 98–182; BP diastolic 42–71
[2019-12-02] MEDS: inSUlin ASPART (NovoLOG) 1 UNIT/0.01 ML (CHARGE PER UNIT) SC SCH ×5 (00:09→23:59)
[2019-12-02 00:21] LABS: ABG BASE EXCESS 0.7 MMOL/L (-2.5-2.5); ABG OXYGEN SATURATION 98 % (94-100); ABG PCO2 61 MMHG (35-45); ABG PO2 107 MMHG (79-93); ABG TCO2 28.9 MMOL/L (21.0-31.0)
[2019-12-02 00:22] LABS: ABG PH 7.27 (7.37-7.43)
[2019-12-02 00:23] LABS: ALLENS TEST YES-POS; INSPIRED O2 75%; PATIENT TEMP 36.7; VENTILATOR YES
[2019-12-02] MEDS: PROPOFOL DRIP (ICU) 100 ML IV SCH ×5 (01:42→19:57)
[2019-12-02] MEDS: RT-ALBUTEROL INHALER HFA (VENTOLIN HFA) 18 GM IH SCH ×4 (02:05→18:55)
[2019-12-02 03:42] LABS: ABG BASE EXCESS 1.6 MMOL/L (-2.5-2.5); ABG OXYGEN SATURATION 96 % (94-100); ABG PCO2 55 MMHG (35-45); ABG PO2 79 MMHG (79-93); ABG TCO2 29.1 MMOL/L (21.0-31.0)
[2019-12-02 03:43] LABS: ABG PH 7.31 (7.37-7.43); BASOPHILS # (AUTO) 0.1 10^3/uL (0.0-0.1); BASOPHILS % (AUTO) 0 % (0-10); EOSINOPHILS % (AUTO) 0 % (0-10); HEMATOCRIT 42 % (40-54); HEMOGLOBIN 13.5 g/dL (13.3-17.7); LYMPHOCYTES # (AUTO) 0.7 10^3/uL (1.0-4.0); LYMPHOCYTES % (AUTO) 2 % (12-44); MEAN CORPUSCULAR HEMOGLOBIN 31 pg (25-34); MEAN CORPUSCULAR HGB CONC 33 g/dL (32-36); MEAN CORPUSCULAR VOLUME 94 fL (80-99); MEAN PLATELET VOLUME 9.5 fL (9.0-12.2); MONOCYTES # (AUTO) 0.7 10^3/uL (0.0-1.0); MONOCYTES % (AUTO) 3 % (0-12); NEUTROPHILS # (AUTO) 25.3 10^3/uL (1.8-7.8); NEUTROPHILS % (AUTO) 94 % (42-75); PLATELET COUNT 248 10^3/uL (130-400)
[2019-12-02 03:44] LABS: ALLENS TEST ART LINE; INSPIRED O2 60%; PATIENT TEMP 36.1; VENTILATOR YES
[2019-12-02 03:55] LABS: ALBUMIN 2.3 GM/DL (3.2-4.5); POTASSIUM 5.3 MMOL/L (3.6-5.0)
[2019-12-02 03:56] LABS: CALCIUM 7.7 MG/DL (8.5-10.1)
[2019-12-02 03:58] LABS: TOTAL PROTEIN 4.9 GM/DL (6.4-8.2)
[2019-12-02 03:59] LABS: BILIRUBIN,TOTAL 0.7 MG/DL (0.1-1.0)
[2019-12-02 04:01] LABS: CREATININE SERUM 1.38 MG/DL (0.60-1.30); PHOSPHORUS 5.2 MG/DL (2.3-4.7)
[2019-12-02 04:04] LABS: MAGNESIUM 2.7 MG/DL (1.6-2.4)
[2019-12-02] MEDS: POTASSIUM CL 10MEQ/50ML IVPB 50 ML IV SCH (04:09)
[2019-12-02] MEDS: KCL 20 MEQ TAB (K-DUR) PO SCH (04:10)
[2019-12-02] MEDS: MAGNESIUM 1 GM/100 ML IVPB 100 ML IV SCH (04:10)
--- NOTE | 2019-12-02 05:00 | Pulmonary Progress Note ---
Subjective Time Seen by a Provider: 04:55 Sepsis Event Evaluation Height, Weight, BMI Height: 5'8.00" Weight: 240lbs. 0.0oz. 108.666671rg; 31.19 BMI Method: Exam Exam Vital Signs Date Time Temp Pulse Resp B/P (MAP) Pulse Ox O2 Delivery O2 Flow Rate FiO2 12/02/19 04:00 95 24 151/58 (89) 93 Mechanical Ventilator 60.00 12/02/19 03:00 88 24 145/61 (89) 93 Mechanical Ventilator 60.00 12/02/19 02:05 91 29 93 80 12/02/19 02:00 92 20 149/62 (91) 93 Mechanical Ventilator 60.00 12/02/19 01:45 Mechanical Ventilator 60.00 12/02/19 01:42 111 123/52 12/02/19 01:00 90 24 133/61 (85) 95 Mechanical Ventilator 60.00 12/02/19 01:00 90 12/02/19 00:00 92 24 103/49 (67) 91 Mechanical Ventilator 60.00 12/01/19 23:00 93 26 109/50 (69) 94 Mechanical Ventilator 60.00 12/01/19 22:16 111 123/52 12/01/19 22:00 99 29 120/53 (75) 94 Mechanical Ventilator 60.00 12/01/19 21:00 96 Mechanical Ventilator 80 12/01/19 21:00 105 20 134/58 (83) 95 Mechanical Ventilator 60.00 12/01/19 20:52 Mechanical Ventilator 60.00 12/01/19 20:00 112 22 130/58 (82) 98 Mechanical Ventilator 80.00 12/01/19 19:39 37.0 111 28 123/52 (75) 92 Mechanical Ventilator 80.00 12/01/19 19:07 112 135/59 12/01/19 19:00 114 22 137/56 (83) 97 Mechanical Ventilator 80.00 12/01/19 19:00 116 12/01/19 18:52 112 26 99 80 12/01/19 18:00 110 25 127/55 (79) 99 Mechanical Ventilator 40.00 12/01/19 17:00 112 26 147/58 (87) 99 Mechanical Ventilator 40.00 12/01/19 16:00 107 18 151/60 (90) 99 Mechanical Ventilator 40.00 12/01/19 16:00 37.4 12/01/19 15:44 107 110/37 12/01/19 15:00 107 26 110/37 (61) 95 Mechanical Ventilator 40.00 12/01/19 14:00 112 21 112/51 (71) 96 Mechanical Ventilator 40.00 12/01/19 13:34 105 30 96 90 12/01/19 13:00 113 16 132/55 (80) 97 Mechanical Ventilator 40.00 12/01/19 12:40 115 12/01/19 12:21 98 180/64 12/01/19 12:00 98 154/57 (89) 96 Mechanical Ventilator 40.00 12/01/19 11:00 97 159/58 (91) 96 Mechanical Ventilator 40.00 12/01/19 10:00 78 160/53 (88) 95 Mechanical Ventilator 40.00 12/01/19 09:11 54 45 91 40 12/01/19 09:00 61 19 168/62 (97) 91 Mechanical Ventilator 40.00 12/01/19 08:00 Mechanical Ventilator 50 12/01/19 08:00 59 17 150/57 (88) 92 Mechanical Ventilator 40.00 12/01/19 07:48 36.0 12/01/19 07:19 60 157/60 12/01/19 07:00 60 12/01/19 07:00 58 11 153/59 (90) 91 Mechanical Ventilator 40.00 12/01/19 06:56 60 30 90 40 12/01/19 06:00 60 16 156/59 (91) 91 Mechanical Ventilator 40.00 12/01/19 05:00 60 13 150/58 (88) 94 Mechanical Ventilator 40.00 I & O 12/02/19 07:00 Intake Total 220 ml Output Total 800 ml Balance -580 ml Height & Weight Height: 5'8.00" Weight: 240lbs. 0.0oz. 108.431448yg; 31.19 BMI Method: General Appearance: Other (sedated, on vent) HEENT: Other (ETT, OGT) Respiratory: Rhonci; No Wheezing; Other (on vent) Cardiovascular: No JVD, No Murmur, Bradycardia (50s) Capillary Refill: Less Than 3 Seconds Extremity: Normal Capillary Refill, Pedal Edema Neurologic/Psychiatric: Other (sedated, appears comfortable) Results Lab Laboratory Tests 12/01/19 03:00 12/02/19 03:30 Assessment/Plan Assessment/Plan COVID 19 PNA with acute respiratory failure with ARDS Pa02/Fi02 185 decreased to 160 -Intubated 11/23 - decrease Vt to 400. RR 22 and PEEP to 10. -- -Repeat ABG in 1hr - TF with pulmicare. -S/P Remdesivir and Convalescent plasma given 11/21 and 11/23 -Pt understands these are EUA medications and consents to use. -Pt wants to be a full code. -Decadron 6mg daily -LR is currently at 30cc/hr -CXR pending for 8am Hyperkalemia -treat and repeat labs at 1300 PNA with MRSA -Continue Vanco -Add Merrem secondary to worsening Leukocytosis. Repeat Guerrero cultures. -Check PCT LA -Guerrero cultures ARF -Monitor - IVF currently LR at 30cc/hr DVT/GI PPX -Lovenox ppx dose -Protonix TAVON ORTIZ DO Dec 02, 2019 05:00
[2019-12-02] MEDS ORDERED: DEXTROSE 50% 50 ML (IMS) SYR IV ONE (05:15)
[2019-12-02] MEDS ORDERED: SODIUM BICARB 8.4% 50 MEQ/50 ML VIAL IV ONE (05:15)
[2019-12-02] MEDS ORDERED: inSUlin (REGULAR) HUMAN 1 UNIT/0.01 ML (CHARGE PER UNIT) IV ONE (05:15)
[2019-12-02] MEDS ORDERED: SODIUM BICARB 8.4% 50 MEQ/50 ML VIAL ONE (05:22)
[2019-12-02] MEDS ORDERED: WATER (STERILE) FOR INJECTION 10 ML ONE (05:22)
[2019-12-02] MEDS ORDERED: MEROPENEM 500 MG VIAL (MERREM) IV ONE (05:22)
[2019-12-02] MEDS ORDERED: DEXTROSE 50% 50 ML (IMS) SYR ONE (05:23)
[2019-12-02] MEDS ORDERED: inSUlin (REGULAR) HUMAN 1 UNIT/0.01 ML (CHARGE PER UNIT) ONE (05:24)
[2019-12-02] MEDS: MEROPENEM 500 MG in WATER (STERILE) FOR INJECTION 10 ML IV SCH ×4 (05:50→23:59)
[2019-12-02 06:11] LABS: BILIRUBIN,URINE NEGATIVE (NEGATIVE); CLARITY,URINE CLEAR; COLOR,URINE YELLOW; GLUCOSE, URINE (UA) NEGATIVE (NEGATIVE); KETONES,URINE NEGATIVE (NEGATIVE); LEUKOCYTE ESTERASE ,URINE NEGATIVE (NEGATIVE); NITRITE,URINE NEGATIVE (NEGATIVE); PROTEIN,URINE TRACE (NEGATIVE)
[2019-12-02] MEDS: fentaNYL INJECTION 1,250 MCG in NS (IVPB) 250 ML IV SCH (06:39)
[2019-12-02 06:53] LABS: BACTERIA,URINE FEW /HPF; WBC,URINE RARE /HPF
[2019-12-02 06:54] LABS: CALCIUM OXALATE CRYSTALS,UR MODERATE /LPF; SQUAMOUS EPITHELIAL CELL,UR 0-2 /HPF
[2019-12-02] MEDS: ARTIFICIAL TEARS OINT (LACRI-LUBE) 3.5 GM TUBE OU SCH ×2 (08:06→19:53)
[2019-12-02] MEDS: PANTOPRAZOLE 40 MG (PROTONIX) VIAL IV SCH (08:06)
--- NOTE | 2019-12-02 09:10 | Diagnostic Imaging Report ---
Indication: Dyspnea. Comparison: 12/01/2019. Discussion: Single portable semiupright view of the chest was obtained. Endotracheal tube is difficult to see though the tip appears in good position within the mid trachea. Enteric tube is coiled in the gastric fundus, stable. Left upper extremity PICC line is stable with tip in the distal SVC. Heart borders are obscured. Median sternotomy is stable. Significantly worsened diffuse pulmonary infiltrates. Cannot exclude a small left pleural effusion. No pneumothorax or osseous abnormality. Impression: 1. Significantly worsening diffuse pulmonary infiltrates. 2. Stable support lines and catheter. Dictated by: Dictated on workstation # [id number]
--- NOTE | 2019-12-02 09:30 | NUR ---
CHEST XRAY RESULTS GIVEN TO DR ORTIZ. NO ORDERS RECEIVED.
[2019-12-02] MEDS: VANCOMYCIN 1500 MG/NS 500 ML IVPB IV SCH ×2 (11:55)
[2019-12-02 12:54] LABS: BASOPHILS # (AUTO) 0.1 10^3/uL (0.0-0.1); BASOPHILS % (AUTO) 0 % (0-10); EOSINOPHILS % (AUTO) 0 % (0-10); HEMATOCRIT 40 % (40-54); HEMOGLOBIN 12.8 g/dL (13.3-17.7); LYMPHOCYTES # (AUTO) 0.4 10^3/uL (1.0-4.0); LYMPHOCYTES % (AUTO) 2 % (12-44); MEAN CORPUSCULAR HEMOGLOBIN 30 pg (25-34); MEAN CORPUSCULAR HGB CONC 32 g/dL (32-36); MEAN CORPUSCULAR VOLUME 93 fL (80-99); MEAN PLATELET VOLUME 9.9 fL (9.0-12.2); MONOCYTES # (AUTO) 0.5 10^3/uL (0.0-1.0); MONOCYTES % (AUTO) 2 % (0-12); NEUTROPHILS # (AUTO) 21.9 10^3/uL (1.8-7.8); NEUTROPHILS % (AUTO) 94 % (42-75); PLATELET COUNT 238 10^3/uL (130-400); WHITE BLOOD COUNT 23.2 10^3/uL (4.3-11.0)
[2019-12-02 13:15] LABS: CALCIUM 7.7 MG/DL (8.5-10.1)
[2019-12-02 13:19] LABS: CREATININE SERUM 1.39 MG/DL (0.60-1.30); PHOSPHORUS 4.4 MG/DL (2.3-4.7)
[2019-12-02 13:21] LABS: MAGNESIUM 2.6 MG/DL (1.6-2.4)
[2019-12-02 14:00] LABS: BAND NEUTROPHILS 12 %; LYMPHOCYTES % (MANUAL) 1 %; MONOCYTES % (MANUAL) 2 %; NEUTROPHILS % (MANUAL) 85 %
[2019-12-02 14:01] LABS: RBC MORPH NORMAL
--- NOTE | 2019-12-02 15:24 | NUR ---
ATTEMPTED TO CALL PT'S DAUGHTER ZENON TO GIVE UPDATE ON PT, NO ANSWER.
[2019-12-02] MEDS: LACTATED RINGERS 1,000 ML IV SCH (16:55)
[2019-12-02] MEDS: ENOXAPARIN 40 MG/0.4 ML (LOVENOX) SYR SC SCH (19:53)
[2019-12-03] VITALS (29 sets, daily range): BP systolic 117–179; BP diastolic 38–72
[2019-12-03] MEDS ORDERED: LABETALOL HCL 20 MG/4 ML VIAL IV ONE (01:30)
[2019-12-03] MEDS: PROPOFOL DRIP (ICU) 100 ML IV SCH ×4 (01:32→21:24)
[2019-12-03] MEDS: RT-ALBUTEROL INHALER HFA (VENTOLIN HFA) 18 GM IH SCH ×4 (02:09→19:39)
[2019-12-03] MEDS: POTASSIUM CL 10MEQ/50ML IVPB 50 ML IV SCH (02:18)
[2019-12-03] MEDS: MAGNESIUM 1 GM/100 ML IVPB 100 ML IV SCH (02:18)
[2019-12-03] MEDS: KCL 20 MEQ TAB (K-DUR) PO SCH (02:19)
[2019-12-03 03:43] LABS: ABG BASE EXCESS 2.3 MMOL/L (-2.5-2.5); ABG OXYGEN SATURATION 95 % (94-100); ABG PCO2 50 MMHG (35-45); ABG PH 7.35 (7.37-7.43); ABG PO2 145 MMHG (79-93); ABG TCO2 28.9 MMOL/L (21.0-31.0)
[2019-12-03 03:44] LABS: BASOPHILS % (AUTO) 0 % (0-10); EOSINOPHILS % (AUTO) 0 % (0-10); HEMATOCRIT 40 % (40-54); HEMOGLOBIN 12.9 g/dL (13.3-17.7); INSPIRED O2 50; LYMPHOCYTES # (AUTO) 0.6 10^3/uL (1.0-4.0); LYMPHOCYTES % (AUTO) 3 % (12-44); MEAN CORPUSCULAR HEMOGLOBIN 30 pg (25-34); MEAN CORPUSCULAR HGB CONC 32 g/dL (32-36); MEAN CORPUSCULAR VOLUME 94 fL (80-99); MEAN PLATELET VOLUME 9.8 fL (9.0-12.2); MONOCYTES # (AUTO) 0.7 10^3/uL (0.0-1.0); MONOCYTES % (AUTO) 3 % (0-12); NEUTROPHILS # (AUTO) 18.9 10^3/uL (1.8-7.8); NEUTROPHILS % (AUTO) 92 % (42-75); PATIENT TEMP 36.7; PLATELET COUNT 241 10^3/uL (130-400); VENTILATOR YES; WHITE BLOOD COUNT 20.6 10^3/uL (4.3-11.0)
[2019-12-03 04:00] LABS: CALCIUM 7.9 MG/DL (8.5-10.1); CREATININE SERUM 1.52 MG/DL (0.60-1.30); MAGNESIUM 2.9 MG/DL (1.6-2.4); PHOSPHORUS 4.2 MG/DL (2.3-4.7); POTASSIUM 5.3 MMOL/L (3.6-5.0)
[2019-12-03] MEDS ORDERED: SODIUM BICARB 8.4% 50 MEQ/50 ML (ABBOTT) SYR IV ONE (05:30)
[2019-12-03] MEDS ORDERED: SOD POLYSTERENE 15 GM/60 ML (KAYEXALATE) UNIT DOSE PR ONE (05:30)
[2019-12-03] MEDS ORDERED: FUROSEMIDE 40 MG/4 ML INJ (LASIX) IV ONE (05:30)
[2019-12-03] MEDS ORDERED: inSUlin (REGULAR) HUMAN 1 UNIT/0.01 ML (CHARGE PER UNIT) IV ONE (05:30)
[2019-12-03] MEDS ORDERED: DEXTROSE 50% 50 ML (IMS) SYR IV ONE (05:30)
--- NOTE | 2019-12-03 05:31 | Pulmonary Progress Note ---
Sepsis Event Evaluation Height, Weight, BMI Height: 5'8.00" Weight: 240lbs. 0.0oz. 108.252149mr; 31.19 BMI Method: Focused Exam Lactate Level 12/02/19 05:45: Lactic Acid Level 1.27 Exam Exam Vital Signs Date Time Temp Pulse Resp B/P (MAP) Pulse Ox O2 Delivery O2 Flow Rate FiO2 12/03/19 04:00 36.7 Mechanical Ventilator 40.00 12/03/19 03:00 87 24 141/54 (83) 95 Mechanical Ventilator 50.00 12/03/19 02:09 83 28 95 50 12/03/19 02:00 88 24 150/62 (91) 95 Mechanical Ventilator 50.00 12/03/19 01:32 96 141/56 12/03/19 01:00 101 21 167/61 (96) 94 Mechanical Ventilator 50.00 12/03/19 01:00 102 12/03/19 00:14 36.7 Mechanical Ventilator 50.00 12/03/19 00:00 97 24 159/63 (95) 95 Mechanical Ventilator 60.00 12/02/19 23:00 96 29 141/56 (84) 95 Mechanical Ventilator 60.00 12/02/19 22:00 103 24 150/57 (88) 94 Mechanical Ventilator 60.00 12/02/19 21:56 104 29 94 60 12/02/19 21:00 104 24 163/66 (98) 94 Mechanical Ventilator 60.00 12/02/19 21:00 94 Mechanical Ventilator 60 12/02/19 20:16 Mechanical Ventilator 60.00 12/02/19 20:00 97 27 129/58 (81) 95 Mechanical Ventilator 65.00 12/02/19 19:57 95 Mechanical Ventilator 60 12/02/19 19:57 93 130/55 12/02/19 19:44 37.1 93 28 130/55 (80) 95 Mechanical Ventilator 65.00 12/02/19 19:00 94 28 130/54 (79) 95 Mechanical Ventilator 65.00 12/02/19 19:00 100 12/02/19 18:55 99 31 96 65 12/02/19 18:00 94 24 130/52 (78) 95 Mechanical Ventilator 65.00 12/02/19 17:00 96 28 153/60 (91) 96 Mechanical Ventilator 65.00 12/02/19 16:00 99 30 154/60 (91) 95 Mechanical Ventilator 65.00 12/02/19 15:10 101 161/62 12/02/19 15:09 36.8 12/02/19 15:00 105 30 167/66 (99) 94 Mechanical Ventilator 65.00 12/02/19 14:38 101 30 96 65 12/02/19 14:00 90 26 136/54 (81) 98 Mechanical Ventilator 65.00 12/02/19 13:00 89 24 98/42 (60) 97 Mechanical Ventilator 65.00 12/02/19 12:49 98 12/02/19 12:07 36.1 12/02/19 12:00 102 29 132/45 (74) 94 Mechanical Ventilator 65.00 12/02/19 11:00 90 26 152/54 (86) 95 Mechanical Ventilator 65.00 12/02/19 10:46 90 159/54 12/02/19 10:00 90 11 159/54 (89) 94 Mechanical Ventilator 65.00 12/02/19 09:17 91 28 97 65 12/02/19 09:00 93 Mechanical Ventilator 65 12/02/19 09:00 89 17 115/43 (67) 96 Mechanical Ventilator 65.00 12/02/19 08:00 90 9 137/51 (79) 94 Mechanical Ventilator 65.00 12/02/19 07:54 35.8 12/02/19 07:23 91 30 93 80 12/02/19 07:00 103 12/02/19 07:00 96 28 147/50 (82) 92 Mechanical Ventilator 65.00 12/02/19 06:10 95 151/58 12/02/19 06:00 106 20 162/53 (89) 91 Mechanical Ventilator 60.00 I & O 12/03/19 07:00 Intake Total 2120 ml Output Total 1750 ml Balance 370 ml Height & Weight Height: 5'8.00" Weight: 240lbs. 0.0oz. 108.243289vj; 31.19 BMI Method: General Appearance: Other (sedated, on vent) HEENT: Other (ETT, OGT) Respiratory: Rhonci; No Wheezing; Other (on vent) Cardiovascular: No JVD, No Murmur, Bradycardia (50s) Capillary Refill: Less Than 3 Seconds Extremity: Normal Capillary Refill, Pedal Edema Neurologic/Psychiatric: Other (sedated, appears comfortable) Results Lab Laboratory Tests 12/02/19 03:30 12/02/19 12:34 12/03/19 03:30 Assessment/Plan Assessment/Plan COVID 19 PNA with acute respiratory failure with ARDS Pa02/Fi02 185 decreased to 160 -Intubated 11/23 - decrease Vt to 400. RR 22 and PEEP to 10. -- -Repeat ABG in 1hr - TF with pulmicare. -S/P Remdesivir and Convalescent plasma given 11/21 and 11/23 -Pt understands these are EUA medications and consents to use. -Pt wants to be a full code. -Decadron 6mg daily -LR is currently at 30cc/hr -CXR pending for 8am Hyperkalemia -treat and repeat labs at 1300 PNA with MRSA -Continue Vanco -Add Merrem secondary to worsening Leukocytosis. Repeat Guerrero cultures. -Check PCT [place] -Guerrero cultures ARF -Monitor - IVF currently LR at 30cc/hr DVT/GI PPX -Lovenox ppx dose -Protonix TAVON ORTIZ DO Dec 03, 2019 05:31
[2019-12-03] MEDS ORDERED: SODIUM BICARB 8.4% 50 MEQ/50 ML VIAL ONE (06:08)
[2019-12-03] MEDS: 1/2 NS IV SOLUTION 1,000 ML IV SCH (06:22)
[2019-12-03] MEDS: MEROPENEM 500 MG in WATER (STERILE) FOR INJECTION 10 ML IV SCH ×3 (06:28→21:23)
[2019-12-03] MEDS: inSUlin ASPART (NovoLOG) 1 UNIT/0.01 ML (CHARGE PER UNIT) SC SCH ×4 (06:33→23:35)
[2019-12-03] MEDS: fentaNYL INJECTION 1,250 MCG in NS (IVPB) 250 ML IV SCH (06:45)
[2019-12-03] MEDS ORDERED: SOD POLYSTERENE 15 GM/60 ML (KAYEXALATE) UNIT DOSE PO ONE (08:00)
[2019-12-03] MEDS: PANTOPRAZOLE 40 MG (PROTONIX) VIAL IV SCH (08:16)
[2019-12-03] MEDS: ARTIFICIAL TEARS OINT (LACRI-LUBE) 3.5 GM TUBE OU SCH ×2 (08:17→21:22)
[2019-12-03] MEDS: meTOprolol TARTRATE 25 MG (LOPRESSOR) TABLET PO SCH ×2 (08:17→21:22)
--- NOTE | 2019-12-03 09:19 | Diagnostic Imaging Report ---
Indication: Dyspnea. Comparison: 12/02/2019. Discussion: Single portable upright view of the chest was obtained. Endotracheal tube, enteric tube, and left upper extremity PICC line are stable. Heart border remains obscured. Decreasing severe infiltrates. No pneumothorax or osseous abnormality. Impression: 1. Stable support lines and catheter. 2. Mildly decreased severe infiltrates. Dictated by: Dictated on workstation # [id number]
[2019-12-03] MEDS: VANCOMYCIN 1500 MG/NS 500 ML IVPB IV SCH ×2 (11:43)
[2019-12-03] MEDS: ENOXAPARIN 40 MG/0.4 ML (LOVENOX) SYR SC SCH (21:22)
[2019-12-04] VITALS (30 sets, daily range): BP systolic 125–187; BP diastolic 43–70
[2019-12-04] MEDS: PROPOFOL DRIP (ICU) 100 ML IV SCH ×4 (00:08→20:42)
[2019-12-04] MEDS: 1/2 NS IV SOLUTION 1,000 ML IV SCH (02:25)
[2019-12-04 02:30] LABS: ABG BASE EXCESS 5.3 MMOL/L (-2.5-2.5); ABG OXYGEN SATURATION 93 % (94-100); ABG PCO2 56 MMHG (35-45); ABG PH 7.36 (7.37-7.43); ABG PO2 74 MMHG (79-93); ABG TCO2 32.2 MMOL/L (21.0-31.0)
[2019-12-04 02:35] LABS: ALLENS TEST ART LINE; INSPIRED O2 50%; PATIENT TEMP 37.3; VENTILATOR YES
[2019-12-04 02:36] LABS: BASOPHILS % (AUTO) 0 % (0-10); EOSINOPHILS % (AUTO) 0 % (0-10); HEMATOCRIT 39 % (40-54); HEMOGLOBIN 12.5 g/dL (13.3-17.7); LYMPHOCYTES # (AUTO) 0.8 10^3/uL (1.0-4.0); LYMPHOCYTES % (AUTO) 4 % (12-44); MEAN CORPUSCULAR HEMOGLOBIN 30 pg (25-34); MEAN CORPUSCULAR HGB CONC 32 g/dL (32-36); MEAN CORPUSCULAR VOLUME 94 fL (80-99); MEAN PLATELET VOLUME 9.9 fL (9.0-12.2); MONOCYTES # (AUTO) 1.1 10^3/uL (0.0-1.0); MONOCYTES % (AUTO) 5 % (0-12); NEUTROPHILS # (AUTO) 18.2 10^3/uL (1.8-7.8); NEUTROPHILS % (AUTO) 89 % (42-75); PLATELET COUNT 249 10^3/uL (130-400); WHITE BLOOD COUNT 20.3 10^3/uL (4.3-11.0)
[2019-12-04] MEDS: RT-ALBUTEROL INHALER HFA (VENTOLIN HFA) 18 GM IH SCH ×4 (02:37→18:34)
[2019-12-04] MEDS: fentaNYL INJECTION 1,250 MCG in NS (IVPB) 250 ML IV SCH ×2 (02:38→23:17)
[2019-12-04 02:51] LABS: POTASSIUM 4.8 MMOL/L (3.6-5.0)
[2019-12-04 02:52] LABS: CALCIUM 7.6 MG/DL (8.5-10.1)
[2019-12-04 02:56] LABS: CREATININE SERUM 1.61 MG/DL (0.60-1.30); PHOSPHORUS 4.5 MG/DL (2.3-4.7)
[2019-12-04 02:58] LABS: MAGNESIUM 2.8 MG/DL (1.6-2.4)
--- NOTE | 2019-12-04 04:35 | Pulmonary Progress Note ---
Subjective Time Seen by a Provider: 04:31 Subjective/Events-last exam Sedated on vent. Sepsis Event Evaluation Height, Weight, BMI Height: 5'8.00" Weight: 240lbs. 0.0oz. 108.858772yd; 31.19 BMI Method: Focused Exam Lactate Level 12/02/19 05:45: Lactic Acid Level 1.27 Exam Exam Vital Signs Date Time Temp Pulse Resp B/P (MAP) Pulse Ox O2 Delivery O2 Flow Rate FiO2 12/04/19 02:37 87 30 92 50 12/04/19 02:00 98 28 148/59 (88) 93 Mechanical Ventilator 50.00 12/04/19 01:00 93 12/04/19 01:00 93 24 151/59 (89) 93 Mechanical Ventilator 50.00 12/04/19 00:08 166/65 12/04/19 00:00 96 24 141/61 (87) 93 Mechanical Ventilator 50.00 12/03/19 23:33 97 Mechanical Ventilator 50.00 12/03/19 23:33 37.3 12/03/19 23:00 93 28 160/67 (98) 97 Mechanical Ventilator 60.00 12/03/19 22:00 96 23 140/62 (88) 96 Mechanical Ventilator 60.00 12/03/19 21:24 133/60 12/03/19 21:00 106 35 122/54 (76) 95 Mechanical Ventilator 60.00 12/03/19 21:00 94 Mechanical Ventilator 60 12/03/19 20:00 105 25 167/72 (103) 96 Mechanical Ventilator 60.00 12/03/19 19:39 105 28 95 60 12/03/19 19:19 37.2 12/03/19 19:00 103 12/03/19 19:00 103 22 131/60 (83) 95 Mechanical Ventilator 60.00 12/03/19 18:00 102 15 137/60 (85) 94 Mechanical Ventilator 60.00 12/03/19 17:17 Mechanical Ventilator 60.00 12/03/19 17:00 97 20 137/58 (84) 91 Mechanical Ventilator 50.00 12/03/19 16:59 Mechanical Ventilator 50.00 12/03/19 16:00 105 23 154/63 (93) 98 Mechanical Ventilator 80.00 12/03/19 15:57 37.4 Mechanical Ventilator 80.00 12/03/19 15:56 107 144/53 12/03/19 15:24 37.1 12/03/19 15:00 87 11 144/53 (83) 100 Mechanical Ventilator 50.00 12/03/19 14:40 90 30 95 50 12/03/19 14:00 84 10 120/46 (70) 95 Mechanical Ventilator 50.00 12/03/19 13:00 95 24 125/38 (67) 95 Mechanical Ventilator 50.00 12/03/19 13:00 94 12/03/19 12:00 91 14 130/51 (77) 94 Mechanical Ventilator 50.00 12/03/19 11:43 37.0 12/03/19 11:33 87 32 94 50 12/03/19 11:00 82 10 129/50 (76) 93 Mechanical Ventilator 50.00 12/03/19 10:00 87 12 138/53 (81) 94 Mechanical Ventilator 50.00 12/03/19 09:00 94 Mechanical Ventilator 50 12/03/19 09:00 90 28 179/64 (102) 95 Mechanical Ventilator 50.00 12/03/19 08:16 84 134/52 12/03/19 08:15 36.8 Mechanical Ventilator 50.00 12/03/19 08:00 84 10 135/51 (79) 95 Mechanical Ventilator 40.00 12/03/19 07:08 87 30 94 40 12/03/19 07:00 89 24 173/65 (101) 93 Mechanical Ventilator 40.00 12/03/19 07:00 84 12/03/19 06:00 82 24 149/56 (87) 94 Mechanical Ventilator 40.00 12/03/19 05:00 81 24 153/59 (90) 93 Mechanical Ventilator 40.00 I & O 12/04/19 07:00 Intake Total 1245 ml Output Total 2800 ml Balance -1555 ml Height & Weight Height: 5'8.00" Weight: 240lbs. 0.0oz. 108.455397st; 31.19 BMI Method: General Appearance: Other (sedated, on vent) HEENT: Other (ETT, OGT) Respiratory: Rhonci; No Wheezing; Other (on vent) Cardiovascular: No JVD, No Murmur, Bradycardia (50s) Capillary Refill: Less Than 3 Seconds Extremity: Normal Capillary Refill, Pedal Edema Neurologic/Psychiatric: Other (sedated, appears comfortable) Results Lab Laboratory Tests 12/02/19 12:34 12/03/19 03:30 12/04/19 02:22 Assessment/Plan Assessment/Plan COVID 19 PNA with acute respiratory failure with ARDS Pa02/Fi02 185 decreased to 160 -Intubated 11/23 - decrease Vt to 400. RR 22 and PEEP to 8-- - TF with pulmicare -- Increase TF to goal currently at 15cc/hr -S/P Remdesivir and Convalescent plasma given 11/21 and 11/23 -Pt understands these are EUA medications and consents to use. -Pt wants to be a full code. 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
[2019-12-04] MEDS: MAGNESIUM 1 GM/100 ML IVPB 100 ML IV SCH (06:38)
[2019-12-04] MEDS: KCL 20 MEQ TAB (K-DUR) PO SCH (06:38)
[2019-12-04] MEDS: POTASSIUM CL 10MEQ/50ML IVPB 50 ML IV SCH (06:38)
[2019-12-04] MEDS: inSUlin ASPART (NovoLOG) 1 UNIT/0.01 ML (CHARGE PER UNIT) SC SCH ×4 (06:42→23:15)
[2019-12-04] MEDS: LACTATED RINGERS 1,000 ML IV SCH ×2 (06:42→08:02)
--- NOTE | 2019-12-04 08:34 | Diagnostic Imaging Report ---
INDICATION: Respiratory failure Frontal chest obtained at 0747 a.m. is compared to yesterday. ET tube is unchanged with tip overlying mid trachea. There is cardiomegaly and post sternotomy change. Diffuse interstitial infiltrates remain unchanged compared to the previous study. There is no pneumothorax or gross pleural fluid IMPRESSION: Unchanged cardiomegaly and diffuse predominantly interstitial infiltrates with unchanged ET tube position. Dictated by: Dictated on workstation # [id number]
[2019-12-04] MEDS: D5W 1000 ML IV SOLUTION 1,000 ML IV SCH (08:58)
[2019-12-04] MEDS: SULFAMETHOXAZOLE/TRIMETHO INJ 480 MG in D5W 500 ML IV SOLUTION 500 ML IV SCH ×2 (08:58→17:22)
[2019-12-04] MEDS: ARTIFICIAL TEARS OINT (LACRI-LUBE) 3.5 GM TUBE OU SCH ×2 (08:58→20:52)
[2019-12-04] MEDS: PANTOPRAZOLE 40 MG (PROTONIX) VIAL IV SCH (08:58)
[2019-12-04] MEDS: meTOprolol TARTRATE 25 MG (LOPRESSOR) TABLET PO SCH ×2 (08:58→20:51)
--- NOTE | 2019-12-04 09:45 | NUR ---
TUBE FEEDING RATE INCREASED TO 25ML/HR PER DIETARY RECOMMENDATIONS.
[2019-12-04] MEDS: VANCOMYCIN 1500 MG/NS 500 ML IVPB IV SCH ×2 (11:40)
[2019-12-04] MEDS ORDERED: TROUGH ORDER-PHARMACY XX ONE (12:00)
--- NOTE | 2019-12-04 13:02 | NUR ---
"TF FOLLOW-UP Est kcal needs: 1550 kcal | 15 kcal/kg Est Pro needs: 62 g Pro | 0.6 g Pro/kg Note pt is currently intubated/sedated. Pt is currently receiving following TF: Pulmocare 1.5 at rate of 25ml/hr, with flushes of 25ml/hr. Would recommend increasing by 10ml q8h to goal rate of 45ml/hr. Note pt can receive TF while in the prone position, but monitor for tolerance, vomiting, and regurgitation. At goal rate, provides 1620 kcal (16 kcal/kg); 68 g Pro (0.7 g Pro/kg); and 848ml free water. Flush with 75ml water q4h for hydration status. With flushes, provides 1298ml free water. Will continue to follow and reassess as pt needs, intake, and status change. Chloé Cleary, MS RD LD [phone] (cell)"
--- NOTE | 2019-12-04 15:00 | NUR ---
TUBE FEEDING RATE TURNED DOWN TO 15ML/HR WHILE PT IS IN PRONE POSITION.
[2019-12-04] MEDS: ENOXAPARIN 40 MG/0.4 ML (LOVENOX) SYR SC SCH (20:51)
[2019-12-04] MEDS: VANCOMYCIN INJECTION 1,000 MG in NS (IVPB) 250 ML IV SCH (21:00)
[2019-12-05] VITALS (30 sets, daily range): BP systolic 110–175; BP diastolic 43–66
[2019-12-05] MEDS: SULFAMETHOXAZOLE/TRIMETHO INJ 480 MG in D5W 500 ML IV SOLUTION 500 ML IV SCH ×4 (00:28→23:17)
[2019-12-05] MEDS: PROPOFOL DRIP (ICU) 100 ML IV SCH ×7 (00:31→23:17)
[2019-12-05] MEDS: D5W 1000 ML IV SOLUTION 1,000 ML IV SCH (00:43)
[2019-12-05] MEDS: RT-ALBUTEROL INHALER HFA (VENTOLIN HFA) 18 GM IH SCH ×4 (02:15→19:16)
[2019-12-05 03:42] LABS: ABG BASE EXCESS 3.9 MMOL/L (-2.5-2.5); ABG OXYGEN SATURATION 90 % (94-100); ABG PCO2 53 MMHG (35-45); ABG PH 7.36 (7.37-7.43); ABG PO2 66 MMHG (79-93); ABG TCO2 30.6 MMOL/L (21.0-31.0)
[2019-12-05 03:48] LABS: ALLENS TEST ART LINE; INSPIRED O2 60%; VENTILATOR YES
[2019-12-05 03:50] LABS: BASOPHILS % (AUTO) 0 % (0-10); EOSINOPHILS % (AUTO) 0 % (0-10); HEMATOCRIT 38 % (40-54); HEMOGLOBIN 12.4 g/dL (13.3-17.7); LYMPHOCYTES # (AUTO) 0.8 10^3/uL (1.0-4.0); LYMPHOCYTES % (AUTO) 6 % (12-44); MEAN CORPUSCULAR HEMOGLOBIN 30 pg (25-34); MEAN CORPUSCULAR HGB CONC 32 g/dL (32-36); MEAN CORPUSCULAR VOLUME 94 fL (80-99); MEAN PLATELET VOLUME 10.3 fL (9.0-12.2); MONOCYTES # (AUTO) 0.9 10^3/uL (0.0-1.0); MONOCYTES % (AUTO) 6 % (0-12); NEUTROPHILS # (AUTO) 12.6 10^3/uL (1.8-7.8); NEUTROPHILS % (AUTO) 86 % (42-75); PLATELET COUNT 193 10^3/uL (130-400); WHITE BLOOD COUNT 14.6 10^3/uL (4.3-11.0)
[2019-12-05 03:52] LABS: POTASSIUM 5.2 MMOL/L (3.6-5.0)
[2019-12-05 03:53] LABS: CALCIUM 7.4 MG/DL (8.5-10.1)
[2019-12-05 03:57] LABS: CREATININE SERUM 1.68 MG/DL (0.60-1.30); PHOSPHORUS 4.1 MG/DL (2.3-4.7)
[2019-12-05 04:00] LABS: MAGNESIUM 2.5 MG/DL (1.6-2.4)
[2019-12-05] MEDS: inSUlin ASPART (NovoLOG) 1 UNIT/0.01 ML (CHARGE PER UNIT) SC SCH ×4 (05:18→22:59)
[2019-12-05] MEDS: KCL 20 MEQ TAB (K-DUR) PO SCH (05:18)
[2019-12-05] MEDS: POTASSIUM CL 10MEQ/50ML IVPB 50 ML IV SCH (05:19)
[2019-12-05] MEDS: MAGNESIUM 1 GM/100 ML IVPB 100 ML IV SCH (05:19)
--- NOTE | 2019-12-05 06:10 | Pulmonary Progress Note ---
Subjective Time Seen by a Provider: 06:04 Subjective/Events-last exam Sedated on vent. Sepsis Event Evaluation Height, Weight, BMI Height: 5'8.00" Weight: 240lbs. 0.0oz. 108.965429gs; 31.19 BMI Method: Exam Exam Vital Signs Date Time Temp Pulse Resp B/P (MAP) Pulse Ox O2 Delivery O2 Flow Rate FiO2 12/05/19 05:00 88 11 175/66 (102) 94 Mechanical Ventilator 60.00 12/05/19 04:00 84 22 150/56 (87) 94 Mechanical Ventilator 60.00 12/05/19 03:42 37.0 12/05/19 03:00 84 15 142/52 (82) 94 Mechanical Ventilator 60.00 12/05/19 02:15 88 30 94 60 12/05/19 02:00 89 34 144/51 (82) 95 Mechanical Ventilator 60.00 12/05/19 01:00 80 23 145/56 (85) 94 Mechanical Ventilator 60.00 12/05/19 01:00 80 12/05/19 00:31 154/57 12/05/19 00:00 82 36 155/58 (90) 94 Mechanical Ventilator 60.00 12/04/19 23:57 37.1 Mechanical Ventilator 60.00 12/04/19 23:00 86 34 141/52 (81) 98 Mechanical Ventilator 70.00 12/04/19 22:00 90 21 125/48 (73) 98 Mechanical Ventilator 70.00 12/04/19 21:26 92 15 96 70 12/04/19 21:00 94 Mechanical Ventilator 70 12/04/19 21:00 97 30 165/59 (94) 96 Mechanical Ventilator 70.00 12/04/19 20:42 112 188/73 12/04/19 20:00 92 136/49 (78) 96 Mechanical Ventilator 70.00 12/04/19 19:00 93 24 137/51 (79) 95 Mechanical Ventilator 70.00 12/04/19 19:00 108 12/04/19 18:34 96 30 95 70 12/04/19 18:00 102 22 132/50 (77) 96 Mechanical Ventilator 70.00 12/04/19 17:00 106 10 146/53 (84) 97 Mechanical Ventilator 70.00 12/04/19 16:00 100 23 132/47 (75) 95 Mechanical Ventilator 70.00 12/04/19 15:26 155/65 12/04/19 15:00 105 24 142/51 (81) 92 Mechanical Ventilator 70.00 12/04/19 14:08 101 30 92 70 12/04/19 14:00 102 6 143/53 (83) 91 Mechanical Ventilator 70.00 12/04/19 13:00 Mechanical Ventilator 70.00 12/04/19 13:00 102 26 148/52 (84) 91 Mechanical Ventilator 70.00 12/04/19 12:32 84 12/04/19 12:00 80 25 127/45 (72) 90 Mechanical Ventilator 60.00 12/04/19 11:40 37.4 12/04/19 11:00 74 28 142/50 (80) 91 Mechanical Ventilator 60.00 12/04/19 10:55 145/53 12/04/19 10:45 77 40 91 60 12/04/19 10:00 87 19 130/44 (72) 91 Mechanical Ventilator 60.00 12/04/19 09:00 97 16 128/43 (71) 89 Mechanical Ventilator 60.00 12/04/19 08:36 101 30 92 60 12/04/19 08:00 93 Mechanical Ventilator 60 12/04/19 08:00 92 50 134/45 (74) 90 Mechanical Ventilator 60.00 12/04/19 07:45 Mechanical Ventilator 60.00 12/04/19 07:30 37.2 12/04/19 07:00 103 21 150/56 (87) 89 Mechanical Ventilator 50.00 12/04/19 06:37 108 I & O 12/05/19 07:00 Intake Total 2342 ml Output Total 2300 ml Balance 42 ml Height & Weight Height: 5'8.00" Weight: 240lbs. 0.0oz. 108.851175hg; 31.19 BMI Method: General Appearance: Other (sedated, on vent) HEENT: Other (ETT, OGT) Respiratory: Rhonci; No Wheezing; Other (on vent) Cardiovascular: No JVD, No Murmur, Bradycardia (50s) Capillary Refill: Less Than 3 Seconds Extremity: Normal Capillary Refill, Pedal Edema Neurologic/Psychiatric: Other (sedated, appears comfortable) Results Lab Laboratory Tests 12/04/19 02:22 12/05/19 03:25 Assessment/Plan Assessment/Plan COVID 19 PNA with acute respiratory failure with ARDS Pa02/Fi02 185 decreased to 160 -Intubated 11/23 - decrease Vt to 400. RR 22 and PEEP to 10-- - TF with pulmicare -- Increase TF to goal currently at 15cc/hr -S/P Remdesivir and Convalescent plasma given 11/21 and 11/23 -Pt understands these are EUA medications and consents to use. -Pt wants to be a full code. -Decadron 10mg daily -LR is currently at 30cc/hr -CXR pending for 8am PNA with MRSA and Strenotriphomonus - BCTM -Continue Vanco -Guerrero cultures ARF -- Worsening -Give liter bolus of LR -Monitor Worsening Hypernatremia -Change IVF to 1/2 NS at 100cc/hr -Free water per OG was increased to 50Q 4 DVT/GI PPX -Lovenox ppx dose -Protonix TAVON ORTIZ DO Dec 05, 2019 06:10
--- NOTE | 2019-12-05 07:53 | Diagnostic Imaging Report ---
INDICATION: Respiratory failure AP view of the chest is obtained with comparison made to study of 12/04/2019. There is cardiomegaly and pulmonary venous congestion with diffuse bilateral airspace disease. There has been mild increase in consolidation in the lung bases. Endotracheal tube is in place with tip just below thoracic inlet and nasogastric tube passes below the diaphragm. Left upper extremity PICC is in stable position. IMPRESSION: Findings remain compatible with diffuse pulmonary edema and/or pneumonitis with increasing basilar consolidation which may be due to superimposed pneumonia. Dictated by: Dictated on workstation # [id number]
[2019-12-05] MEDS: PANTOPRAZOLE 40 MG (PROTONIX) VIAL IV SCH (08:56)
[2019-12-05] MEDS: meTOprolol TARTRATE 25 MG (LOPRESSOR) TABLET PO SCH ×2 (08:56→19:40)
[2019-12-05] MEDS: ARTIFICIAL TEARS OINT (LACRI-LUBE) 3.5 GM TUBE OU SCH ×2 (08:58→19:41)
[2019-12-05] MEDS: 1/2 NS IV SOLUTION 1,000 ML IV SCH ×3 (08:58→21:46)
--- NOTE | 2019-12-05 14:12 | NUR ---
"TF FOLLOW-UP Est kcal needs: 1550 kcal | 15 kcal/kg Est Pro needs: 62 g Pro | 0.6 g Pro/kg Note pt is currently intubated/sedated. Pt is currently receiving following TF: Pulmocare 1.5 at rate of 25ml/hr, with flushes of 75ml/hr. Would recommend increasing by 10ml q8h to goal rate of 45ml/hr. Note pt can receive TF while in the prone position, but monitor for tolerance, vomiting, and regurgitation. At goal rate, provides 1620 kcal (16 kcal/kg); 68 g Pro (0.7 g Pro/kg); and 848ml free water. Flush with 75ml water q4h for hydration status. With flushes, provides 1298ml free water. Will continue to follow and reassess as pt needs, intake, and status change. Chloé Cleary, MS RD LD [phone] (cell)"
[2019-12-05] MEDS: VANCOMYCIN INJECTION 1,000 MG in NS (IVPB) 250 ML IV SCH (19:40)
[2019-12-05] MEDS: ENOXAPARIN 40 MG/0.4 ML (LOVENOX) SYR SC SCH (19:41)
[2019-12-05] MEDS: fentaNYL INJECTION 1,250 MCG in NS (IVPB) 250 ML IV SCH (19:54)
[2019-12-06] VITALS (31 sets, daily range): BP systolic 103–157; BP diastolic 20–62
[2019-12-06] MEDS ORDERED: NS IV 1000 ML 1,000 ML ONE (02:07)
[2019-12-06] MEDS ORDERED: NS IV 500 ML 0 ML ONE (02:08)
[2019-12-06 02:20] LABS: BASOPHILS % (AUTO) 0 % (0-10); EOSINOPHILS % (AUTO) 0 % (0-10); HEMATOCRIT 38 % (40-54); HEMOGLOBIN 11.9 g/dL (13.3-17.7); LYMPHOCYTES # (AUTO) 0.9 10^3/uL (1.0-4.0); LYMPHOCYTES % (AUTO) 6 % (12-44); MEAN CORPUSCULAR HEMOGLOBIN 30 pg (25-34); MEAN CORPUSCULAR HGB CONC 32 g/dL (32-36); MEAN CORPUSCULAR VOLUME 94 fL (80-99); MEAN PLATELET VOLUME 10.3 fL (9.0-12.2); MONOCYTES # (AUTO) 1.2 10^3/uL (0.0-1.0); MONOCYTES % (AUTO) 7 % (0-12); NEUTROPHILS # (AUTO) 14.2 10^3/uL (1.8-7.8); NEUTROPHILS % (AUTO) 85 % (42-75); PLATELET COUNT 175 10^3/uL (130-400); WHITE BLOOD COUNT 16.6 10^3/uL (4.3-11.0)
[2019-12-06 02:21] LABS: ABG BASE EXCESS 1.2 MMOL/L (-2.5-2.5); ABG OXYGEN SATURATION 94 % (94-100); ABG PCO2 55 MMHG (35-45); ABG PO2 79 MMHG (79-93); ABG TCO2 28.6 MMOL/L (21.0-31.0)
[2019-12-06] MEDS: RT-ALBUTEROL INHALER HFA (VENTOLIN HFA) 18 GM IH SCH ×4 (02:22→21:56)
[2019-12-06 02:24] LABS: ABG PH 7.31 (7.37-7.43)
[2019-12-06 02:25] LABS: ALLENS TEST ART LINE; POTASSIUM 5.5 MMOL/L (3.6-5.0)
[2019-12-06 02:26] LABS: PATIENT TEMP 36.7; VENTILATOR YES
[2019-12-06 02:30] LABS: PHOSPHORUS 4.5 MG/DL (2.3-4.7)
[2019-12-06 02:31] LABS: CREATININE SERUM 1.88 MG/DL (0.60-1.30)
[2019-12-06 02:33] LABS: MAGNESIUM 2.5 MG/DL (1.6-2.4)
[2019-12-06] MEDS: KCL 20 MEQ TAB (K-DUR) PO SCH (02:34)
[2019-12-06] MEDS: MAGNESIUM 1 GM/100 ML IVPB 100 ML IV SCH (02:34)
[2019-12-06] MEDS: POTASSIUM CL 10MEQ/50ML IVPB 50 ML IV SCH (02:34)
[2019-12-06] MEDS: PROPOFOL DRIP (ICU) 100 ML IV SCH ×6 (03:35→19:27)
[2019-12-06] MEDS: inSUlin ASPART (NovoLOG) 1 UNIT/0.01 ML (CHARGE PER UNIT) SC SCH ×4 (05:23→23:18)
[2019-12-06] MEDS: fentaNYL INJECTION 1,250 MCG in NS (IVPB) 250 ML IV SCH ×2 (05:31→18:26)
[2019-12-06] MEDS ORDERED: SODIUM BICARB 8.4% 50 MEQ/50 ML VIAL IV SCH (06:55)
--- NOTE | 2019-12-06 06:58 | Pulmonary Progress Note ---
Subjective Time Seen by a Provider: 06:51 Subjective/Events-last exam Sedated on vent. Sepsis Event Evaluation Height, Weight, BMI Height: 5'8.00" Weight: 240lbs. 0.0oz. 108.995150ot; 31.19 BMI Method: Exam Exam Vital Signs Date Time Temp Pulse Resp B/P (MAP) Pulse Ox O2 Delivery O2 Flow Rate FiO2 12/06/19 06:00 103 24 126/51 (76) 94 Mechanical Ventilator 50.00 12/06/19 05:23 134/50 12/06/19 05:00 97 24 104/44 (64) 94 Mechanical Ventilator 50.00 12/06/19 04:00 36.2 12/06/19 04:00 93 27 130/50 (76) 95 Mechanical Ventilator 50.00 12/06/19 03:35 89 127/49 12/06/19 03:00 90 21 120/47 (71) 95 Mechanical Ventilator 50.00 12/06/19 02:30 89 26 119/50 (73) 96 Mechanical Ventilator 50.00 12/06/19 02:25 36.8 12/06/19 02:22 110 29 98 60 12/06/19 02:00 101 27 110/51 (70) 97 Mechanical Ventilator 55.00 12/06/19 01:00 101 24 124/46 (72) 97 Mechanical Ventilator 55.00 12/06/19 01:00 101 12/06/19 00:00 101 28 131/49 (76) 97 Mechanical Ventilator 55.00 12/05/19 23:24 110 31 100 60 12/05/19 23:17 93 134/56 12/05/19 23:00 100 27 123/52 (75) 97 Mechanical Ventilator 55.00 12/05/19 22:00 91 24 122/47 (72) 96 Mechanical Ventilator 55.00 12/05/19 21:00 100 14 120/45 (70) 99 Mechanical Ventilator 55.00 12/05/19 21:00 Mechanical Ventilator 70 12/05/19 20:00 100 15 110/43 (65) 98 Mechanical Ventilator 55.00 12/05/19 19:55 100 109/45 12/05/19 19:16 110 31 100 60 12/05/19 19:15 37.0 12/05/19 19:00 105 20 122/48 (72) 98 Mechanical Ventilator 55.00 12/05/19 19:00 105 12/05/19 18:00 31 124/47 (72) 97 Mechanical Ventilator 60.00 12/05/19 17:00 111 27 124/49 (74) 97 Mechanical Ventilator 60.00 12/05/19 16:32 139/55 12/05/19 16:00 105 25 127/49 (75) 96 Mechanical Ventilator 60.00 12/05/19 15:48 37.2 12/05/19 15:00 114 12 128/49 (75) 95 Mechanical Ventilator 60.00 12/05/19 14:47 110 31 94 60 12/05/19 14:00 114 16 129/45 (73) 92 Mechanical Ventilator 60.00 12/05/19 13:07 109 162/59 12/05/19 13:00 110 17 134/47 (76) 91 Mechanical Ventilator 60.00 12/05/19 12:48 115 12/05/19 12:00 91 24 120/44 (69) 92 Mechanical Ventilator 60.00 12/05/19 11:36 36.8 12/05/19 11:00 93 24 140/50 (80) 92 Mechanical Ventilator 60.00 12/05/19 10:29 85 30 90 50 12/05/19 10:00 80 25 120/45 (70) 94 Mechanical Ventilator 60.00 12/05/19 09:00 106 24 132/49 (76) 95 Mechanical Ventilator 60.00 12/05/19 08:57 140/50 12/05/19 08:00 91 23 133/47 (75) 94 Mechanical Ventilator 60.00 12/05/19 08:00 Mechanical Ventilator 60 12/05/19 07:15 36.6 12/05/19 07:09 98 30 93 50 12/05/19 07:00 92 30 125/46 (72) 94 Mechanical Ventilator 60.00 I & O 12/06/19 07:00 Intake Total 375 ml Output Total 1510 ml Balance -1135 ml Height & Weight Height: 5'8.00" Weight: 240lbs. 0.0oz. 108.359805ck; 31.19 BMI Method: General Appearance: Other (sedated, on vent) HEENT: Other (ETT, OGT) Respiratory: Rhonci; No Wheezing; Other (on vent) Cardiovascular: No JVD, No Murmur, Bradycardia (50s) Capillary Refill: Less Than 3 Seconds Extremity: Normal Capillary Refill, Pedal Edema Neurologic/Psychiatric: Other (sedated, appears comfortable) Results Lab Laboratory Tests 12/05/19 03:25 12/06/19 02:05 Assessment/Plan Assessment/Plan COVID 19 PNA with acute respiratory failure with ARDS Pa02/Fi02 185 decreased to 160 -Intubated 11/23 - decrease Vt to 400. RR 22 and PEEP to 10-- - TF with pulmicare -- Increase TF to goal currently at 15cc/hr -S/P Remdesivir and Convalescent plasma given 11/21 and 11/23 -Pt understands these are EUA medications and consents to use. -Pt wants to be a full code. -Decadron 10mg daily -LR is currently at 30cc/hr -CXR pending for 8am PNA with MRSA and Strenotriphomonus - BCTM -- Change to PO -Change Vanco to zyvox secondary to worsening renal failure. -Guerrero cultures ARF -- Worsening -Give liter bolus of LR -Monitor Hypernatremia - improvinb -Change IVF to 1/2 NS at 100cc/hr -Free water per OG was increased to 50Q 4 DVT/GI PPX -Lovenox ppx dose -Protonix TAVON ORTIZ DO Dec 06, 2019 06:58
[2019-12-06] MEDS ORDERED: SOD POLYSTERENE 15 GM/60 ML (KAYEXALATE) UNIT DOSE PO ONE (07:00)
[2019-12-06] MEDS ORDERED: DEXTROSE 50% 50 ML (IMS) SYR IV ONE (07:00)
[2019-12-06] MEDS ORDERED: inSUlin (REGULAR) HUMAN 1 UNIT/0.01 ML (CHARGE PER UNIT) IV ONE (07:00)
--- NOTE | 2019-12-06 07:48 | Diagnostic Imaging Report ---
INDICATION: Respiratory distress Portable chest shows cardiomegaly with mild pulmonary venous distention. There are interstitial infiltrates. There is no effusion or pneumothorax. The ET tube and OG tube remain in place. IMPRESSION: There are bilateral interstitial infiltrates which may be slightly worse compared to the 12/05/19 study. Recommend continued follow-up. Dictated by: Dictated on workstation # [id number]
[2019-12-06] MEDS: LACTATED RINGERS 1,000 ML IV SCH ×3 (08:47→12:41)
[2019-12-06] MEDS ORDERED: SULFAMETHOXAZOLE/TRIMETHO SUSP 10 ML (BACTRIM) UDC PO SCH (09:00)
[2019-12-06] MEDS: LINEZOLID IVPB 300 ML IV SCH ×2 (09:11→21:17)
[2019-12-06] MEDS: PANTOPRAZOLE 40 MG (PROTONIX) VIAL IV SCH (09:11)
[2019-12-06] MEDS: meTOprolol TARTRATE 25 MG (LOPRESSOR) TABLET PO SCH ×2 (09:11→19:28)
[2019-12-06] MEDS: ARTIFICIAL TEARS OINT (LACRI-LUBE) 3.5 GM TUBE OU SCH ×2 (09:12→21:17)
[2019-12-06] MEDS: SULFAMETHOXAZOLE/TRIMETHO SUSP 10 ML (BACTRIM) UDC GT SCH ×4 (10:48→21:17)
[2019-12-06] MEDS: 1/2 NS IV SOLUTION 1,000 ML IV SCH ×2 (12:41→17:51)
--- NOTE | 2019-12-06 14:15 | NUR ---
"TF FOLLOW-UP Est kcal needs: 1550 kcal | 15 kcal/kg Est Pro needs: 62 g Pro | 0.6 g Pro/kg Note pt is currently intubated/sedated. Pt is currently receiving following TF: Pulmocare 1.5 at rate of 15ml/hr, with flushes of 75ml/hr. Would recommend increasing by 10ml q8h to goal rate of 45ml/hr. Note pt can receive TF while in the prone position, but monitor for tolerance, vomiting, and regurgitation. At goal rate, provides 1620 kcal (16 kcal/kg); 68 g Pro (0.7 g Pro/kg); and 848ml free water. Flush with 75ml water q4h for hydration status. With flushes, provides 1298ml free water. Will continue to follow and reassess as pt needs, intake, and status change. Chloé Cleary, MS RD LD [phone] (cell)"
[2019-12-06] MEDS ORDERED: LORazepam INJ 2 MG/ML (ATIVAN) VIAL ONE (15:59)
[2019-12-06] MEDS: LORazepam INJ 2 MG/ML (ATIVAN) VIAL IVP PRN (16:05)
[2019-12-06] MEDS: ENOXAPARIN 40 MG/0.4 ML (LOVENOX) SYR SC SCH (19:28)
[2019-12-07] VITALS (29 sets, daily range): BP systolic 95–149; BP diastolic 38–58
[2019-12-07] MEDS: PROPOFOL DRIP (ICU) 100 ML IV SCH ×6 (02:23→21:43)
[2019-12-07 02:45] LABS: BASOPHILS % (AUTO) 0 % (0-10); EOSINOPHILS % (AUTO) 0 % (0-10); HEMATOCRIT 34 % (40-54); HEMOGLOBIN 11.2 g/dL (13.3-17.7); LYMPHOCYTES # (AUTO) 0.8 10^3/uL (1.0-4.0); LYMPHOCYTES % (AUTO) 5 % (12-44); MEAN CORPUSCULAR HEMOGLOBIN 30 pg (25-34); MEAN CORPUSCULAR HGB CONC 33 g/dL (32-36); MEAN CORPUSCULAR VOLUME 92 fL (80-99); MEAN PLATELET VOLUME 10.6 fL (9.0-12.2); MONOCYTES # (AUTO) 0.7 10^3/uL (0.0-1.0); MONOCYTES % (AUTO) 4 % (0-12); NEUTROPHILS # (AUTO) 13.8 10^3/uL (1.8-7.8); NEUTROPHILS % (AUTO) 89 % (42-75); PLATELET COUNT 144 10^3/uL (130-400); WHITE BLOOD COUNT 15.4 10^3/uL (4.3-11.0)
[2019-12-07 03:04] LABS: ABG BASE EXCESS 0.1 MMOL/L (-2.5-2.5); ABG OXYGEN SATURATION 95 % (94-100); ABG PCO2 53 MMHG (35-45); ABG PO2 86 MMHG (79-93); ABG TCO2 27.3 MMOL/L (21.0-31.0)
[2019-12-07 03:09] LABS: CALCIUM 6.9 MG/DL (8.5-10.1); CREATININE SERUM 1.82 MG/DL (0.60-1.30); MAGNESIUM 2.3 MG/DL (1.6-2.4); PHOSPHORUS 5.1 MG/DL (2.3-4.7); POTASSIUM 5.3 MMOL/L (3.6-5.0)
[2019-12-07] MEDS: RT-ALBUTEROL INHALER HFA (VENTOLIN HFA) 18 GM IH SCH ×4 (03:19→21:21)
[2019-12-07 04:01] LABS: ABG PH 7.31 (7.37-7.43); ALLENS TEST ARTLINE; INSPIRED O2 65%; VENTILATOR YES
[2019-12-07 04:02] LABS: PATIENT TEMP 37
[2019-12-07] MEDS: POTASSIUM CL 10MEQ/50ML IVPB 50 ML IV SCH (04:19)
[2019-12-07] MEDS: MAGNESIUM 1 GM/100 ML IVPB 100 ML IV SCH (04:20)
[2019-12-07] MEDS: KCL 20 MEQ TAB (K-DUR) PO SCH (04:20)
--- NOTE | 2019-12-07 05:14 | Pulmonary Progress Note ---
Subjective Time Seen by a Provider: 05:09 Subjective/Events-last exam Pt is sedated on vent. Sepsis Event Evaluation Height, Weight, BMI Height: 5'8.00" Weight: 240lbs. 0.0oz. 108.989936xk; 31.19 BMI Method: Exam Exam Vital Signs Date Time Temp Pulse Resp B/P (MAP) Pulse Ox O2 Delivery O2 Flow Rate FiO2 12/07/19 04:00 76 15 123/46 (71) 98 Mechanical Ventilator 60.00 12/07/19 03:19 73 29 97 65 12/07/19 03:00 75 15 116/43 (67) 98 Mechanical Ventilator 60.00 12/07/19 02:23 76 139/53 12/07/19 02:00 77 11 119/46 (70) 97 Mechanical Ventilator 60.00 12/07/19 01:00 81 21 125/47 (73) 97 Mechanical Ventilator 60.00 12/07/19 00:36 79 12/07/19 00:00 80 14 119/45 (69) 96 Mechanical Ventilator 60.00 12/06/19 23:00 82 19 118/50 (72) 97 Mechanical Ventilator 60.00 12/06/19 22:00 84 17 118/48 (71) 96 Mechanical Ventilator 60.00 12/06/19 21:56 85 31 97 65 12/06/19 21:00 Mechanical Ventilator 55 12/06/19 21:00 85 25 118/48 (71) 96 Mechanical Ventilator 60.00 12/06/19 20:00 86 23 116/46 (69) 96 Mechanical Ventilator 60.00 12/06/19 19:48 89 12/06/19 19:47 36.3 Mechanical Ventilator 65.00 12/06/19 19:39 89 29 95 65 12/06/19 19:27 93 139/52 12/06/19 19:00 90 24 129/49 (75) 95 Mechanical Ventilator 60.00 12/06/19 18:00 93 25 112/44 (66) 96 Mechanical Ventilator 60.00 12/06/19 17:19 35.7 12/06/19 17:00 94 24 124/48 (73) 95 Mechanical Ventilator 60.00 12/06/19 16:04 76 103/47 12/06/19 16:00 87 23 129/50 (76) 94 Mechanical Ventilator 60.00 12/06/19 15:00 88 28 157/62 (93) 98 Mechanical Ventilator 60.00 12/06/19 14:44 76 30 92 65 12/06/19 14:00 88 28 107/45 (65) 92 Mechanical Ventilator 60.00 12/06/19 13:00 84 26 130/50 (76) 92 Mechanical Ventilator 60.00 12/06/19 12:56 82 122/45 12/06/19 12:42 82 12/06/19 12:00 81 23 119/45 (69) 93 Mechanical Ventilator 60.00 12/06/19 11:22 82 30 92 65 12/06/19 11:00 91 28 127/49 (75) 92 Mechanical Ventilator 60.00 12/06/19 10:00 94 24 136/52 (80) 93 Mechanical Ventilator 60.00 12/06/19 09:10 77 124/47 12/06/19 09:00 91 25 137/55 (82) 93 Mechanical Ventilator 60.00 12/06/19 09:00 Mechanical Ventilator 60 12/06/19 08:00 91 28 122/46 (71) 93 Mechanical Ventilator 60.00 12/06/19 07:58 77 28 93 60 12/06/19 07:35 Mechanical Ventilator 60.00 12/06/19 07:00 101 21 138/50 (79) 93 Mechanical Ventilator 50.00 12/06/19 06:45 103 12/06/19 06:00 103 24 126/51 (76) 94 Mechanical Ventilator 50.00 12/06/19 05:23 134/50 I & O 12/07/19 06:59 Intake Total 2400 ml Output Total 1850 ml Balance 550 ml Height & Weight Height: 5'8.00" Weight: 240lbs. 0.0oz. 108.912356ak; 31.19 BMI Method: General Appearance: Other (sedated, on vent) HEENT: Other (ETT, OGT) Respiratory: Rhonci; No Wheezing; Other (on vent) Cardiovascular: No JVD, No Murmur, Bradycardia (50s) Capillary Refill: Less Than 3 Seconds Extremity: Normal Capillary Refill, Pedal Edema Neurologic/Psychiatric: Other (sedated, appears comfortable) Results Lab Laboratory Tests 12/06/19 02:05 12/07/19 02:20 Assessment/Plan Assessment/Plan COVID 19 PNA with acute respiratory failure with ARDS Pa02/Fi02 185 decreased to 160 -Intubated 11/23 - decrease Vt to 400. RR 22 and PEEP to 10-- - TF with pulmicare -- Increase TF to goal currently at 15cc/hr -S/P Remdesivir and Convalescent plasma given 11/21 and 11/23 -Pt understands these are EUA medications and consents to use. -Pt wants to be a full code. -Decadron 10mg daily -LR is currently at 30cc/hr -CXR pending for 8am PNA with MRSA and Strenotriphomonus - BCTM -- Change to PO -Change Vanco to zyvox secondary to worsening renal failure. -Guerrero cultures ARF -- Worsening -Give liter bolus of LR -Monitor Hypernatremia - improvinb -Change IVF to 1/2 NS at 100cc/hr -Free water per OG was increased to 50Q 4 DVT/GI PPX -Lovenox ppx dose -Protonix TAVON ORTIZ DO Dec 07, 2019 05:14
[2019-12-07] MEDS ORDERED: DEXTROSE 50% 50 ML (IMS) SYR IV ONE (05:15)
[2019-12-07] MEDS ORDERED: inSUlin (REGULAR) HUMAN 1 UNIT/0.01 ML (CHARGE PER UNIT) IV ONE (05:15)
[2019-12-07] MEDS ORDERED: SODIUM BICARB 8.4% 50 MEQ/50 ML (ABBOTT) SYR IV ONE (05:15)
[2019-12-07] MEDS ORDERED: ALBUMIN 25% 25 GM/100 ML 100 ML IV ONE (05:15)
[2019-12-07] MEDS ORDERED: SODIUM BICARB 8.4% 50 MEQ/50 ML VIAL IV SCH (05:30)
[2019-12-07] MEDS ORDERED: SOD POLYSTERENE 15 GM/60 ML (KAYEXALATE) UNIT DOSE ONE (05:37)
[2019-12-07] MEDS: 1/2 NS IV SOLUTION 1,000 ML IV SCH ×2 (05:50→15:08)
[2019-12-07] MEDS: fentaNYL INJECTION 1,250 MCG in NS (IVPB) 250 ML IV SCH ×2 (05:50→17:38)
[2019-12-07] MEDS: inSUlin ASPART (NovoLOG) 1 UNIT/0.01 ML (CHARGE PER UNIT) SC SCH ×4 (05:53→23:50)
[2019-12-07] MEDS: meTOprolol TARTRATE 25 MG (LOPRESSOR) TABLET PO SCH ×2 (08:18→19:52)
[2019-12-07] MEDS: ARTIFICIAL TEARS OINT (LACRI-LUBE) 3.5 GM TUBE OU SCH ×2 (08:18→19:53)
[2019-12-07] MEDS: LINEZOLID IVPB 300 ML IV SCH ×2 (08:18→19:52)
[2019-12-07] MEDS: SULFAMETHOXAZOLE/TRIMETHO SUSP 10 ML (BACTRIM) UDC GT SCH ×4 (08:18→19:52)
[2019-12-07] MEDS: PANTOPRAZOLE 40 MG (PROTONIX) VIAL IV SCH (08:18)
[2019-12-07] MEDS: LORazepam INJ 2 MG/ML (ATIVAN) VIAL IVP PRN ×3 (08:19→17:41)
--- NOTE | 2019-12-07 08:59 | Diagnostic Imaging Report ---
CHEST 1 VIEW, AP/PA ONLY INDICATION: Intubation. COMPARISON: 12/06/2019 FINDINGS: ET tube has tip approximately 3 cm above the yanick. Left PICC is grossly stable in position with tip in the upper SVC. Diffuse bilateral pulmonary opacities are not substantially changed allowing for differences in technique. No pleural effusion or pneumothorax. Grossly stable cardiomediastinal silhouette. IMPRESSION: 1. ET tube and left PICC remain in good position. 2. No change in diffuse pulmonary opacities. Dictated by: Dictated on workstation # [id number]
[2019-12-07] MEDS: ENOXAPARIN 100 MG/1 ML (LOVENOX) SYR SC SCH ×2 (11:39→19:52)
--- NOTE | 2019-12-07 15:43 | NUR ---
TF FOLLOW-UP Pt is currently receiving following Pulmocare 1.5 at rate of 15ml/hr, with flushes of 50ml q4h. Would recommend conservative increases of 10ml q8h to goal rate of 45ml/hr. Will continue to follow and reassess as pt needs, intake, and status change. Chloé Cleary, MS RD LD [phone] (cell)
[2019-12-07] MEDS ORDERED: TROUGH ORDER-PHARMACY XX ONE (20:00)
[2019-12-08] VITALS (29 sets, daily range): BP systolic 78–177; BP diastolic 48–72
[2019-12-08] MEDS: PROPOFOL DRIP (ICU) 100 ML IV SCH ×5 (01:01→21:41)
[2019-12-08] MEDS: 1/2 NS IV SOLUTION 1,000 ML IV SCH (01:54)
[2019-12-08] MEDS: RT-ALBUTEROL INHALER HFA (VENTOLIN HFA) 18 GM IH PRN (02:45)
[2019-12-08 03:05] LABS: ABG BASE EXCESS -2.5 MMOL/L (-2.5-2.5); ABG OXYGEN SATURATION 93 % (94-100); ABG PCO2 56 MMHG (35-45); ABG PO2 73 MMHG (79-93); ABG TCO2 25.8 MMOL/L (21.0-31.0)
[2019-12-08 03:06] LABS: BASOPHILS % (AUTO) 0 % (0-10); EOSINOPHILS % (AUTO) 0 % (0-10); HEMATOCRIT 35 % (40-54); HEMOGLOBIN 11.2 g/dL (13.3-17.7); LYMPHOCYTES # (AUTO) 0.7 10^3/uL (1.0-4.0); LYMPHOCYTES % (AUTO) 4 % (12-44); MEAN CORPUSCULAR HEMOGLOBIN 30 pg (25-34); MEAN CORPUSCULAR HGB CONC 32 g/dL (32-36); MEAN CORPUSCULAR VOLUME 93 fL (80-99); MEAN PLATELET VOLUME 11.3 fL (9.0-12.2); MONOCYTES # (AUTO) 0.7 10^3/uL (0.0-1.0); MONOCYTES % (AUTO) 4 % (0-12); NEUTROPHILS # (AUTO) 15.7 10^3/uL (1.8-7.8); NEUTROPHILS % (AUTO) 90 % (42-75); PLATELET COUNT 144 10^3/uL (130-400); WHITE BLOOD COUNT 17.4 10^3/uL (4.3-11.0)
[2019-12-08 03:07] LABS: INSPIRED O2 70; PATIENT TEMP 35.8; VENTILATOR YES
[2019-12-08 03:09] LABS: ABG PH 7.25 (7.37-7.43)
[2019-12-08 03:27] LABS: POTASSIUM 5.2 MMOL/L (3.6-5.0)
[2019-12-08 03:29] LABS: CALCIUM 6.8 MG/DL (8.5-10.1)
[2019-12-08 03:33] LABS: CREATININE SERUM 1.99 MG/DL (0.60-1.30); PHOSPHORUS 7.2 MG/DL (2.3-4.7)
[2019-12-08 03:35] LABS: MAGNESIUM 2.4 MG/DL (1.6-2.4)
[2019-12-08] MEDS: POTASSIUM CL 10MEQ/50ML IVPB 50 ML IV SCH (04:21)
[2019-12-08] MEDS: KCL 20 MEQ TAB (K-DUR) PO SCH (04:21)
[2019-12-08] MEDS: MAGNESIUM 1 GM/100 ML IVPB 100 ML IV SCH (04:21)
[2019-12-08] MEDS: inSUlin ASPART (NovoLOG) 1 UNIT/0.01 ML (CHARGE PER UNIT) SC SCH ×5 (04:42→23:36)
--- NOTE | 2019-12-08 07:31 | Pulmonary Progress Note ---
Subjective Time Seen by a Provider: 07:26 Subjective/Events-last exam Sedated on vent. Sepsis Event Evaluation Height, Weight, BMI Height: 5'8.00" Weight: 240lbs. 0.0oz. 108.964537xm; 31.19 BMI Method: Exam Exam Vital Signs Date Time Temp Pulse Resp B/P (MAP) Pulse Ox O2 Delivery O2 Flow Rate FiO2 12/08/19 07:23 106 129/62 12/08/19 06:00 99 24 100/55 (70) 95 Mechanical Ventilator 70.00 12/08/19 05:00 99 25 101/56 (71) 95 Mechanical Ventilator 70.00 12/08/19 04:00 97 24 118/61 (80) 94 Mechanical Ventilator 70.00 12/08/19 03:53 97 124/65 12/08/19 03:37 36.3 12/08/19 03:00 93 24 112/58 (76) 93 Mechanical Ventilator 70.00 12/08/19 02:45 93 28 94 70 12/08/19 02:00 94 27 111/57 (75) 95 Mechanical Ventilator 70.00 12/08/19 01:01 92 127/63 12/08/19 01:00 91 28 121/58 (79) 95 Mechanical Ventilator 70.00 12/08/19 01:00 93 12/08/19 00:00 91 24 113/56 (75) 94 Mechanical Ventilator 70.00 12/07/19 23:00 90 23 115/56 (75) 94 Mechanical Ventilator 70.00 12/07/19 22:00 88 28 125/58 (80) 93 Mechanical Ventilator 70.00 12/07/19 21:43 85 124/57 12/07/19 21:21 85 29 93 70 12/07/19 21:00 Mechanical Ventilator 70 12/07/19 21:00 85 23 115/54 (74) 94 Mechanical Ventilator 70.00 12/07/19 20:00 80 27 120/55 (76) 93 Mechanical Ventilator 70.00 12/07/19 19:57 35.3 12/07/19 19:00 80 12/07/19 19:00 79 27 120/55 (76) 93 Mechanical Ventilator 70.00 12/07/19 18:06 35.2 12/07/19 17:51 75 27 118/54 (75) 94 Mechanical Ventilator 70.00 12/07/19 17:36 75 105/44 12/07/19 17:00 73 25 114/46 (68) 93 Mechanical Ventilator 85.00 12/07/19 16:00 74 26 95/45 (62) 92 Mechanical Ventilator 85.00 12/07/19 15:21 75 29 91 70 12/07/19 15:07 73 132/47 12/07/19 15:00 68 29 144/57 (86) 87 Mechanical Ventilator 85.00 12/07/19 14:00 67 28 111/43 (65) 90 Mechanical Ventilator 85.00 12/07/19 13:28 68 12/07/19 13:00 67 8 115/44 (67) 91 Mechanical Ventilator 85.00 12/07/19 12:02 73 132/47 12/07/19 12:00 67 23 125/43 (70) 86 Mechanical Ventilator 85.00 12/07/19 11:00 65 28 107/39 (61) 88 Mechanical Ventilator 85.00 12/07/19 10:49 66 28 88 70 12/07/19 10:00 68 10 105/39 (61) 89 Mechanical Ventilator 85.00 12/07/19 10:00 35.1 12/07/19 09:00 76 10 101/38 (59) 96 Mechanical Ventilator 85.00 12/07/19 09:00 Mechanical Ventilator 85 12/07/19 08:37 78 149/51 12/07/19 08:15 Mechanical Ventilator 85.00 12/07/19 08:00 76 13 137/49 (78) 91 Mechanical Ventilator 75.00 12/07/19 07:45 Mechanical Ventilator 75.00 I & O 12/08/19 07:00 Intake Total 1280 ml Output Total 1195 ml Balance 85 ml Height & Weight Height: 5'8.00" Weight: 240lbs. 0.0oz. 108.235529ld; 31.19 BMI Method: General Appearance: Other (sedated, on vent) HEENT: Other (ETT, OGT) Respiratory: Rhonci; No Wheezing; Other (on vent) Cardiovascular: No JVD, No Murmur, Bradycardia (50s) Capillary Refill: Less Than 3 Seconds Extremity: Normal Capillary Refill, Pedal Edema Neurologic/Psychiatric: Other (sedated, appears comfortable) Results Lab Laboratory Tests 12/07/19 02:20 12/08/19 02:35 Assessment/Plan Assessment/Plan COVID 19 PNA with acute respiratory failure with ARDS -Intubated 11/23, admitted 11/20 - decrease Vt to 400. RR 22 and PEEP to 10-- - TF with pulmicare -- Increase TF to goal currently at 15cc/hr -S/P Remdesivir and Convalescent plasma given 11/21 and 11/23 -Pt understands these are EUA medications and consents to use. -Pt wants to be a full code. -Continue proning pt -Decadron decreased to 6mg daily 12/06 -LR is currently at 30cc/hr -CXR pending for 8am PNA with MRSA and Strenotriphomonus - 12/05 BCTM -- Change to PO -12/05 Change Vanco to zyvox secondary to worsening renal failure. -Guerrero cultures Worsening renal failure with hyperkalemia, and hyperphos -Start phosLo -Change and increase IVF to NS at 100cc/hr -Monitor -Continue to monitor close Hypotension -Start Levophed -Give liter bolus of NS -Family has decided to make pt a DNR/No Code -Check CMP Hypernatremia - resolved DVT/GI PPX -Lovenox theraputic dose secondary to DDIMer -Protonix Overall prognosis is poor. Family did make pt a DNR this morning. TAVON ORTIZ DO Dec 08, 2019 07:31
--- NOTE | 2019-12-08 08:24 | Diagnostic Imaging Report ---
INDICATION: Respiratory distress. Comparison made with prior examination 12/07/2019 FINDINGS: There is diffuse bilateral airspace disease. Cardiac silhouette is largely obscured. There is no pleural effusion or pneumothorax. Endotracheal tube appears to be in satisfactory position. The distal nasogastric tube is not well-visualized as the films are underpenetrated. IMPRESSION: Increasing diffuse bilateral airspace disease. Some underlying congestive failure cannot be excluded. Recommend clinical correlation. Dictated by: Dictated on workstation # [id number]
[2019-12-08] MEDS: fentaNYL INJECTION 1,250 MCG in NS (IVPB) 250 ML IV SCH (08:25)
[2019-12-08] MEDS: LINEZOLID IVPB 300 ML IV SCH ×2 (08:27→21:34)
[2019-12-08] MEDS: SULFAMETHOXAZOLE/TRIMETHO SUSP 10 ML (BACTRIM) UDC GT SCH ×4 (08:28→21:34)
[2019-12-08] MEDS: PANTOPRAZOLE 40 MG (PROTONIX) VIAL IV SCH (08:28)
[2019-12-08] MEDS: ARTIFICIAL TEARS OINT (LACRI-LUBE) 3.5 GM TUBE OU SCH ×2 (08:28→21:35)
[2019-12-08] MEDS: meTOprolol TARTRATE 25 MG (LOPRESSOR) TABLET PO SCH ×2 (08:29→21:35)
[2019-12-08] MEDS ORDERED: NOREPINEPHRINE 4 MG/250 ML 250 ML IV ONE (08:35)
[2019-12-08] MEDS: NOREPINEPHRINE 4 MG/250 ML 250 ML IV SCH ×4 (08:40→23:37)
[2019-12-08] MEDS ORDERED: NS IV 1000 ML 1,000 ML IV SCH (08:45)
[2019-12-08] MEDS: NS IV 1000 ML 1,000 ML IV SCH ×3 (10:12→21:40)
--- NOTE | 2019-12-08 10:13 | Pulmonary Progress Note ---
Standard Progress Note Progress Notes Date Seen by Provider: Dec 08, 2019 Time Seen by Provider: 10:08 UPDATE: Called Shonda Diego (daughter) to give medical update with Leno Lloyd. We answered all questions to the best of our ability. I explained the option of TRUCK DRIVING INSTRUCTOR and they understand pt will sooner with TRUCK DRIVING INSTRUCTOR however he will be comfortable. Family will probably make pt TRUCK DRIVING INSTRUCTOR tomorrow morning. Will also update hospitalist on family meeting. Assessment & Plan COVID 19 PNA with acute respiratory failure with ARDS -Intubated 11/23, admitted 11/20 - decrease Vt to 400. RR 22 and PEEP to 10-- - TF with pulmicare -- Increase TF to goal currently at 15cc/hr -S/P Remdesivir and Convalescent plasma given 11/21 and 11/23 -Pt understands these are EUA medications and consents to use. -Pt wants to be a full code. -Continue proning pt -Decadron decreased to 6mg daily 12/06 -LR is currently at 30cc/hr -CXR pending for 8am PNA with MRSA and Strenotriphomonus - 12/05 BCTM -- Change to PO -12/05 Change Vanco to zyvox secondary to worsening renal failure. -Guerrero cultures Worsening renal failure with hyperkalemia, and hyperphos -Start phosLo -Change and increase IVF to NS at 100cc/hr -Monitor -Continue to monitor close Hypotension -Start Levophed -Give liter bolus of NS -Family has decided to make pt a DNR/No Code -Check CMP Hypernatremia - resolved DVT/GI PPX -Lovenox theraputic dose secondary to DDIMer -Protonix Overall prognosis is poor. Family did make pt a DNR this morning. Time spent with patient (mins): 30 Focused Exam Lactate Level 12/08/19 08:55: Lactic Acid Level 0.63 Lactic Acid Level Laboratory Tests Test 12/08/19 08:55 Lactic Acid Level 0.63 MMOL/L (0.50-2.00) TAVON ORTIZ DO Dec 08, 2019 10:13
[2019-12-08] MEDS: ENOXAPARIN 100 MG/1 ML (LOVENOX) SYR SC SCH ×2 (10:31→21:35)
[2019-12-08 10:39] LABS: ALBUMIN 2.3 GM/DL (3.2-4.5); BILIRUBIN,TOTAL 0.3 MG/DL (0.1-1.0); CALCIUM 6.8 MG/DL (8.5-10.1); CREATININE SERUM 2.12 MG/DL (0.60-1.30); POTASSIUM 5.2 MMOL/L (3.6-5.0); TOTAL PROTEIN 4.7 GM/DL (6.4-8.2)
[2019-12-08] MEDS: CALCIUM ACETATE 667 MG CAP (PHOSLO) PO SCH ×2 (12:57→17:19)
--- NOTE | 2019-12-08 14:53 | NUR ---
During care rounds, plan of care is to hold TF d/t high BP per Dr. Villarreal. Will continue to follow and reassess as pt needs, intake, and status change. Chloé Cleary, MS RD LD
[2019-12-08] MEDS: RT-ALBUTEROL INHALER HFA (VENTOLIN HFA) 18 GM IH SCH ×2 (15:15→18:28)
[2019-12-09] VITALS (11 sets, daily range): BP systolic 101–145; BP diastolic 42–55
[2019-12-09] MEDS: PROPOFOL DRIP (ICU) 100 ML IV SCH ×2 (01:55→06:05)
[2019-12-09] MEDS: RT-ALBUTEROL INHALER HFA (VENTOLIN HFA) 18 GM IH SCH (02:47)
[2019-12-09 04:33] LABS: ABG BASE EXCESS -5.3 MMOL/L (-2.5-2.5); ABG OXYGEN SATURATION 90 % (94-100); ABG PCO2 56 MMHG (35-45); ABG PO2 64 MMHG (79-93); ABG TCO2 23.5 MMOL/L (21.0-31.0); INSPIRED O2 80; VENTILATOR YES
[2019-12-09 04:34] LABS: POTASSIUM 5.4 MMOL/L (3.6-5.0)
[2019-12-09 04:35] LABS: CALCIUM 6.7 MG/DL (8.5-10.1)
[2019-12-09 04:39] LABS: BASOPHILS % (AUTO) 0 % (0-10); EOSINOPHILS % (AUTO) 0 % (0-10); HEMATOCRIT 34 % (40-54); LYMPHOCYTES # (AUTO) 0.7 10^3/uL (1.0-4.0); LYMPHOCYTES % (AUTO) 4 % (12-44); MEAN CORPUSCULAR HEMOGLOBIN 30 pg (25-34); MEAN CORPUSCULAR HGB CONC 33 g/dL (32-36); MEAN CORPUSCULAR VOLUME 92 fL (80-99); MEAN PLATELET VOLUME 11.1 fL (9.0-12.2); MONOCYTES # (AUTO) 0.7 10^3/uL (0.0-1.0); MONOCYTES % (AUTO) 4 % (0-12); NEUTROPHILS # (AUTO) 16.1 10^3/uL (1.8-7.8); NEUTROPHILS % (AUTO) 90 % (42-75); PLATELET COUNT 157 10^3/uL (130-400); WHITE BLOOD COUNT 17.9 10^3/uL (4.3-11.0)
[2019-12-09 04:40] LABS: CREATININE SERUM 2.35 MG/DL (0.60-1.30)
[2019-12-09 04:42] LABS: MAGNESIUM 2.4 MG/DL (1.6-2.4)
[2019-12-09 05:52] LABS: ATYPICAL LYMPHOCYTES 2 %; EOSINOPHILS % (MANUAL) 1 %; HYPOCHROMASIA SLIGHT; LYMPHOCYTES % (MANUAL) 4 %; MONOCYTES % (MANUAL) 4 %; NEUTROPHILS % (MANUAL) 89 %
[2019-12-09] MEDS: inSUlin ASPART (NovoLOG) 1 UNIT/0.01 ML (CHARGE PER UNIT) SC SCH (05:53)
[2019-12-09] MEDS ORDERED: POTASSIUM CL 10MEQ/50ML IVPB 50 ML IV SCH (06:00)
[2019-12-09] MEDS ORDERED: MAGNESIUM 1 GM/100 ML IVPB 100 ML IV SCH (06:00)
[2019-12-09] MEDS ORDERED: KCL 20 MEQ TAB (K-DUR) PO SCH (06:00)
--- NOTE | 2019-12-09 06:34 | Progress Note - Hospitalist ---
Subjective HPI/CC On Admission Date Seen by Provider: Dec 09, 2019 Focused Exam Lactate Level 12/08/19 10:00: Lactic Acid Level 1.13 Objective Exam Vital Signs Vital Signs Date Time Temp Pulse Resp B/P (MAP) Pulse Ox O2 Delivery O2 Flow Rate FiO2 12/09/19 08:31 93 Mechanical Ventilator 100 12/09/19 08:00 82 12 122/45 (70) 80.00 12/08/19 20:00 36.4 Capillary Refill : Less Than 3 Seconds Results/Procedures Lab Laboratory Tests 12/09/19 04:15 Patient resulted labs reviewed. Clinical Quality Measures DVT/VTE Risk/Contraindication: Risk Factor Score Per Nursin RFS Level Per Nursing on Admit: 3=High AZAEL GOYAL DO Dec 09, 2019 06:34
[2019-12-09] MEDS ORDERED: SOD POLYSTERENE 15 GM/60 ML (KAYEXALATE) UNIT DOSE PO NR (08:00)
[2019-12-09] MEDS: CALCIUM ACETATE 667 MG CAP (PHOSLO) PO SCH (08:03)
[2019-12-09] MEDS: LINEZOLID IVPB 300 ML IV SCH (08:03)
[2019-12-09] MEDS: ARTIFICIAL TEARS OINT (LACRI-LUBE) 3.5 GM TUBE OU SCH (08:04)
[2019-12-09] MEDS: SULFAMETHOXAZOLE/TRIMETHO SUSP 10 ML (BACTRIM) UDC GT SCH (08:04)
[2019-12-09] MEDS: PANTOPRAZOLE 40 MG (PROTONIX) VIAL IV SCH (08:04)
--- NOTE | 2019-12-09 09:01 | Diagnostic Imaging Report ---
INDICATION: Respiratory distress COMPARISON: 12/07 FINDINGS: Severe 5 lobe airspace disease showed no significant change from prior. The small amount of soft tissue gas in the right neck decreased. No identifiable pneumothorax. ET tube mid trachea. IMPRESSION: Severe 5 lobe airspace disease showed little if any interval change. Subcutaneous gas in the neck has decreased. Dictated by: Dictated on workstation # [id number]
--- NOTE | 2019-12-09 09:33 | NUR ---
PATIENT FAMILY PRESENT AT THIS TIME, REQUESTS PATIENT TO BE TERMINALLY EXTUBATED. PHYSICIAN AWARE. AT 0845 RT EXTUBATED PATIENT, RESTRAINTS REMOVED AT THAT TIME. PATIENT HR STOPPED VERIFIED WITH 2ND RN CORNELIUS. TOD 0910. NOTIFIED [facility] TRANSPLANT, PATIENT IS NOT A CANDIDATE FOR DONATION. FAMILY REQUESTS PATIENT BE SENT TO [facility], RELEASE OF BODY SIGNED BY DAUGHTER.
--- NOTE | 2019-12-09 10:31 | Discharge Summary ---
Discharge Summary Hospital Course Was the Problem List Reviewed?: Yes Problems/Dx: (1) COVID-19 Status: Acute (2) Acute respiratory failure with hypoxia Status: Acute (3) HTN (hypertension) Status: Chronic Qualifiers: Qualified Codes: I10 - Essential (primary) hypertension (4) Hyperglycemia Status: Acute (5) Pneumonia Status: Acute Qualifiers: Qualified Codes: J18.9 - Pneumonia, unspecified organism Hospital Course Date of Admission: Nov 20, 2019 at 18:23 Admission Diagnosis : Family Physician/Provider: Alba Mercado MD Date of Discharge: 12/09/19 Discharge Diagnosis: VDRF, COVID-19 PNA Hospital Course: Assessment from Dr Villarreal: UPDATE: Called Shonda Diego (daughter) to give medical update with Leno Lloyd. We answered all questions to the best of our ability. I explained the option of PROJECT MANAGER PROCESS DEVELOPMENT and they understand pt will sooner with PROJECT MANAGER PROCESS DEVELOPMENT however he will be comfortable. Family will probably make pt PROJECT MANAGER PROCESS DEVELOPMENT tomorrow morning. Will also update hospitalist on family meeting. Assessment & Plan COVID 19 PNA with acute respiratory failure with ARDS -Intubated 11/23, admitted 11/20 - decrease Vt to 400. RR 22 and PEEP to 10-- - TF with pulmicare -- Increase TF to goal currently at 15cc/hr -S/P Remdesivir and Convalescent plasma given 11/21 and 11/23 -Pt understands these are EUA medications and consents to use. -Pt wants to be a full code. -Continue proning pt -Decadron decreased to 6mg daily 12/06 -LR is currently at 30cc/hr -CXR pending for 8am PNA with MRSA and Strenotriphomonus - 12/05 BCTM -- Change to PO -12/05 Change Vanco to zyvox secondary to worsening renal failure. -Guerrero cultures Worsening renal failure with hyperkalemia, and hyperphos -Start phosLo -Change and increase IVF to NS at 100cc/hr -Monitor -Continue to monitor close Hypotension -Start Levophed -Give liter bolus of NS -Family has decided to make pt a DNR/No Code -Check CMP Hypernatremia - resolved DVT/GI PPX -Lovenox theraputic dose secondary to DDIMer -Protonix Overall prognosis is poor. Family did make pt a DNR this morning. Patient had a complicated hospital course since admitted 11/21/19 with COVID-19. Patient intubated on 11/24/19 and placed on abx for PNA. Renal failure occurred a nd ultimately became more and more complicated and was unable to recover and patient's family updated and patient made DNR and placed on comfort care and terminally extubated and shortly after. Labs and Pending Lab Test: Laboratory Tests 12/08/19 11:13: Glucometer 147H 12/08/19 17:21: Glucometer 197H 12/08/19 23:30: Glucometer 254H 12/09/19 04:15: White Blood Count 17.9H, Red Blood Count 3.63L, Hemoglobin 11.0L, Hematocrit 34L , Mean Corpuscular Volume 92, Mean Corpuscular Hemoglobin 30, Mean Corpuscular Hemoglobin Concent 33, Red Cell Distribution Width 13.8, Platelet Count 157, Mean Platelet Volume 11.1, Immature Granulocyte % (Auto) 2, Neutrophils (%) (Auto) 90H, Lymphocytes (%) (Auto) 4L, Monocytes (%) (Auto) 4, Eosinophils (%) (Auto) 0, Basophils (%) (Auto) 0, Neutrophils # (Auto) 16.1H, Lymphocytes # (Auto) 0.7L, Monocytes # (Auto) 0.7, Eosinophils # (Auto) 0.0, Basophils # (Auto) 0.0, Immature Granulocyte # (Auto) 0.4H, Neutrophils % (Manual) 89, Lymphocytes % (Manual) 4, Monocytes % (Manual) 4, Eosinophils % (Manual) 1, Atypical Lymphocytes 2, Hypochromasia SLIGHT, Blood Gas Puncture Site ARTLINE, Blood Gas Patient Temperature 36.0, Arterial Blood pH 7.20*L, Arterial Blood Partial Pressure CO2 56H, Arterial Blood Partial Pressure O2 64L, Arterial Blood HCO3 22L, Arterial Blood Total CO2 23.5, Arterial Blood Oxygen Saturation 90L, Arterial Blood Base Excess -5.3L, John Test UNKNOWN, Blood Gas Ventilator Setti ng YES, Blood Gas Inspired Oxygen 80, Sodium Level 133L, Potassium Level 5.4H, Chloride Level 103, Carbon Dioxide Level 19L, Anion Gap 11, Blood Urea Nitrogen 91H, Creatinine 2.35H, Estimat Glomerular Filtration Rate 27, BUN/Creatinine Ratio 39, Glucose Level 226H, Calcium Level 6.7L, Phosphorus Level 8.0H, Magnesium Level 2.4 Microbiology 12/02/19 Gram Stain - Final, Complete 12/02/19 Sputum Culture - Final, Complete Staphylococcus aureus Stenotrophomonas Maltophilia 12/02/19 Blood Culture - Final, Complete No growth 12/02/19 Urine Culture - Final, Complete NO GROWTH Home Meds Active Reported Vision Plus Lutein Vitamin Tab (Multivitamin W-Minerals/Lutein) 1 Each Tablet 1 Each PO DAILY Aspirin EC (Aspirin) 81 Mg Tablet.dr 81 Mg PO DAILY Multivitamin 1 Each Tablet 1 Each PO DAILY Atorvastatin Calcium 40 Mg Tablet 40 Mg PO DAILY Victoza 2-Harpreet (Liraglutide) 0.6 Mg/0.1 Ml Pen.injctr 1.2 Mg SQ DAILY Glimepiride 4 Mg Tablet 4 Mg PO BID [place]-3 Acid Ethyl Esters 1 Gm Capsule 1 Gm PO BID K-Tab ER (Potassium Chloride) 10 Meq Tablet.er 10 Meq PO DAILY Isosorbide Mononitrate ER (Isosorbide Mononitrate) 30 Mg Tab.er.24h 30 Mg PO DAILY Furosemide 20 Mg Tablet 20 Mg PO DAILY Hydrochlorothiazide 25 Mg Tablet 25 Mg PO DAILY Metoprolol Tartrate 100 Mg Tablet 100 Mg PO BID Allopurinol 300 Mg Tablet 300 Mg PO DAILY Lisinopril 40 Mg Tablet 40 Mg PO DAILY Assessment/Pt Instructions Discharge Planning: <30 minutes discharge planning Discharge Instructions Pneumonia Vaccine Order Indica: Yes Discharge Physical Examination Vital Signs Vital Signs Date Time Temp Pulse Resp B/P (MAP) Pulse Ox O2 Delivery O2 Flow Rate FiO2 12/09/19 08:31 93 Mechanical Ventilator 100 12/09/19 08:00 82 12 122/45 (70) 80.00 12/08/19 20:00 36.4 General Appearance: Other () Allergies: Coded Allergies: metformin (Verified Allergy, Unknown, 11/20/19) DIARRHEA Discharge Summary Date of Admission Nov 20, 2019 at 18:23 Date of Discharge Discharge Diagnosis (1) COVID-19 Status: Acute (2) Acute respiratory failure with hypoxia Status: Acute (3) HTN (hypertension) Status: Chronic Qualifiers: Qualified Codes: I10 - Essential (primary) hypertension (4) Hyperglycemia Status: Acute (5) Pneumonia Status: Acute Qualifiers: Qualified Codes: J18.9 - Pneumonia, unspecified organism Clinical Quality Measures DVT/VTE Risk/Contraindication: Risk Factor Score Per Nursin RFS Level Per Nursing on Admit: 3=High AZAEL GOYAL DO Dec 09, 2019 10:31
== END 2019-12-09 09:10 | disposition expired | DRG 207 ==
LOC: ICU 18:23
PROVIDERS: ADMIT Family Medicine; ATTEND Internal Medicine Critical Care Medicine
PROC: XW033E5 Introduction of Remdesivir Anti-infective into Peripheral Vein, Percutaneous Approach, New Technology Group 5 (ICD-10-PCS; principal; 2019-11-21)
PROC: XW13325 Transfusion of Convalescent Plasma (Nonautologous) into Peripheral Vein, Percutaneous Approach, New Technology Group 5 (ICD-10-PCS; 2019-11-22)
PROC: 5A1955Z Respiratory Ventilation, Greater than 96 Consecutive Hours (ICD-10-PCS; 2019-11-24)
PROC: 0BH17EZ Insertion of Endotracheal Airway into Trachea, Via Natural or Artificial Opening (ICD-10-PCS; 2019-11-24)
PROC: 02HV33Z Insertion of Infusion Device into Superior Vena Cava, Percutaneous Approach (ICD-10-PCS; 2019-11-27)
DX: U07.1 COVID-19 (principal); J12.89 Other viral pneumonia; J96.01 Acute respiratory failure with hypoxia; J15.212 Pneumonia due to Methicillin resistant Staphylococcus aureus; N17.9 Acute kidney failure, unspecified; E87.2 Acidosis; I10 Essential (primary) hypertension; I25.2 Old myocardial infarction; R00.1 Bradycardia, unspecified; E78.00 Pure hypercholesterolemia, unspecified; M10.9 Gout, unspecified; R73.9 Hyperglycemia, unspecified; T38.0X5A Adverse effect of glucocorticoids and synthetic analogues, initial encounter; Z95.1 Presence of aortocoronary bypass graft; I95.9 Hypotension, unspecified; E87.5 Hyperkalemia; E83.39 Other disorders of phosphorus metabolism; Z66 Do not resuscitate; Z51.5 Encounter for palliative care
CPT/HCPCS: 36415; 36569; 71045; 76937; 80048; 80053; 80202; 81000; 82728; 82805; 82962; 83605; 83615; 83735; 83880; 84100; 84145; 84478; 84484; 85007; 85025; 85027; 85379; 86769; 86850; 86900; 86901; 87040; 87070; 87077; 87081; 87088; 87106; 87186; 87205; 87449; 87635; 87899; 94002; 94003; 94640; 94660; 94668; 94799